=== PATIENT | female | born 1980 | race Caucasian/White ===

== ENCOUNTER → 2020-09-20 17:09 | Outpatient (CLI) | payer BC, SELFPAY ==
--- NOTE | ~2020-09-20 | MM_ITS ---
EXAMINATION: MM screening [facility] w [facility]add HISTORY: Screening mammogram TECHNIQUE: Craniocaudal and mediolateral oblique 3-D tomosynthesis images were obtained and synthetic 2-D images were generated. CAD analysis was submitted and interpreted. COMPARISON: 08/10/2019 diagnostic left digital mammogram and limited left breast ultrasound 08/02/2019, 05/02/2016, 04/30/2015 bilateral digital screening mammogram examinations BREAST PARENCHYMAL COMPOSITION: The breasts are heterogeneously dense, which may obscure small masses . FINDINGS: Scattered benign calcifications are noted bilaterally. There is no evidence of suspicious m ass, calcification, or architectural distortion to suggest malignancy in either breast. There has bee n no suspicious interval change. IMPRESSION: 1. No mammographic evidence of malignancy. 2. Recommend routine screening mammography in one year. BI-RADS Category 2: Benign finding(s). Reviewed, dictated and finalized at location A. OR ENERGY TRADER
== END ==
PROVIDERS: PCP Family Medicine; Visit Provider Nurse Practitioner Obstetrics & Gynecology
DX: Z12.31 Encounter for screening mammogram for malignant neoplasm of breast (principal)
CPT/HCPCS: 77063; 77067

== ENCOUNTER → 2021-09-20 10:50 | Outpatient (CLI) | payer BC, SELFPAY ==
--- NOTE | ~2021-09-20 | MM_ITS ---
EXAMINATION: MM screening [facility] BI w chadd HISTORY: Screening mammogram TECHNIQUE: Craniocaudal and mediolateral oblique 3-D tomosynthesis images were obtained and synthetic 2-D images were generated. CAD analysis was submitted and interpreted. COMPARISON: 09/20/2020, 08/10/2019, 08/02/2019 BREAST PARENCHYMAL COMPOSITION: The breasts are heterogeneously dense, which may obscure small masses . FINDINGS: There is no evidence of suspicious mass, calcification, or architectural distortion to sugg est malignancy in either breast. There has been no suspicious interval change. IMPRESSION: 1. No mammographic evidence of malignancy. 2. Recommend routine screening mammography in one year. BI-RADS Category 1: Negative Reviewed, dictated and finalized at location A. UCTION PLANNING MANAGER
== END ==
PROVIDERS: Visit Provider Nurse Practitioner Obstetrics & Gynecology
DX: Z12.31 Encounter for screening mammogram for malignant neoplasm of breast (principal)
CPT/HCPCS: 77063; 77067

== ENCOUNTER → 2022-10-07 16:22 | Outpatient (CLI) | payer BC, SELFPAY ==
--- NOTE | ~2022-10-07 | MM_ITS ---
EXAMINATION: MM screening [facility] BI w chadd HISTORY: Screening mammogram TECHNIQUE: Craniocaudal and mediolateral oblique 3-D tomosynthesis images were obtained and synthetic 2-D images were generated. CAD analysis was submitted and interpreted. COMPARISON: 09/20/2021, 09/20/2020, 08/10/2019, 08/02/2019 BREAST PARENCHYMAL COMPOSITION: The breasts are heterogeneously dense, which may obscure small masses . FINDINGS: No suspicious mass, calcification, or architectural distortion are identified in either americo ast to suggest malignancy. There has been no suspicious interval change. IMPRESSION: 1. No mammographic evidence of malignancy. 2. Recommend routine screening mammography in one year. BI-RADS Category 1: Negative Reviewed, dictated and finalized at location A. SCHOOL INDUSTRIAL ARTS TEACHER
== END ==
PROVIDERS: PCP Nurse Practitioner Obstetrics & Gynecology; Visit Provider Nurse Practitioner Obstetrics & Gynecology
DX: Z12.31 Encounter for screening mammogram for malignant neoplasm of breast (principal)
CPT/HCPCS: 77063; 77067

== ENCOUNTER → 2023-08-03 07:11 | Outpatient (CLI) | payer BC, SELFPAY ==
--- NOTE | ~2023-08-03 | MM_ITS ---
EXAMINATION: MM screening [facility] BI w chadd HISTORY: Screening mammogram TECHNIQUE: Craniocaudal and mediolateral oblique 3-D tomosynthesis images were obtained and synthetic 2-D images were generated. CAD analysis was submitted and interpreted. COMPARISON: 10/07/2022, 09/20/2021, 09/20/2020 BREAST PARENCHYMAL COMPOSITION: The breasts are heterogeneously dense, which may obscure small masses . FINDINGS: No suspicious mass, calcification, or architectural distortion are identified in either americo ast to suggest malignancy. There has been no suspicious interval change. IMPRESSION: 1. No mammographic evidence of malignancy. 2. Recommend routine screening mammography in one year. BI-RADS Category 1: Negative Reviewed, dictated and finalized at location A.
== END ==
PROVIDERS: PCP Family Medicine; Visit Provider Nurse Practitioner Obstetrics & Gynecology
DX: Z12.31 Encounter for screening mammogram for malignant neoplasm of breast (principal)
CPT/HCPCS: 77063; 77067

== ENCOUNTER 2024-09-14 14:06 | Outpatient (CLI) | payer BC, SELFPAY ==
--- NOTE | ~2024-09-14 | MM_ITS ---
EXAMINATION: MM screening [facility] w [facility]add HISTORY: Screening mammogram TECHNIQUE: Craniocaudal and mediolateral oblique 3-D tomosynthesis images were obtained and synthetic 2-D images were generated. CAD analysis was submitted and interpreted. COMPARISON: 08/03/2023, 10/07/2022, 09/20/2021, 09/20/2020 BREAST PARENCHYMAL COMPOSITION:Dense: The breasts are extremely dense, which lowers the sensitivity o f mammography. FINDINGS: No suspicious mass, calcification, or architectural distortion are identified in either americo ast to suggest malignancy. There has been no suspicious interval change. IMPRESSION: No mammographic evidence of malignancy. Recommend routine screening mammography in one year. BI-RADS Category 1: Negative Reviewed, dictated and finalized at location . SAN PLASTERER
== END 2024-09-14 14:07 | disposition home or self-care (01) ==
LOC: MICIMG 14:07
PROVIDERS: PCP Family Medicine; Visit Provider Obstetrics & Gynecology
DX: Z12.31 Encounter for screening mammogram for malignant neoplasm of breast (principal)
CPT/HCPCS: 77063; 77067

== ENCOUNTER 2025-04-10 01:03 | Day surgery (SDC) | payer BC, SELFPAY ==
[2025-03-29 16:11] VITALS: BMI 30.1
--- OUTSIDE RECORDS SUMMARY | 2025-04-10 01:06 | XMS_ITS | Clinical Summary ---
Author Organization [address] Address [address] [place] [address] Care Team Providers Care Embroidery Operator Name Role Phone No, Physician Primary Care Provider [phone] Allergies Active Allergy Reactions Criticality Noted Date Comments Sulfa Rash Medium 09/27/2023 fever Medications No known medications Active Problems No known active problems Surgical History Surgery Date Site/Laterality Comments OVARIAN CYST REMOVAL Social History Tobacco Use Types Packs/Day Years Used Date Smoking Tobacco: Never Assessed Comments Unknown Sex and Gender Information Value Date Recorded Sex Assigned at Not on file Legal Sex Female 8:06 AM CDT Gender Identity Not on file Sexual Orientation Not on file Obstetrics History Last Filed Vital Signs Vital Sign Reading Time Taken Comments Blood Pressure 134/84 09/27/2023 5:33 PM RIVER GUIDE Pulse 98 09/27/2023 5:33 PM RIVER GUIDE Temperature 36.8 C (98.2 F) 09/27/2023 5:33 PM RIVER GUIDE Respiratory Rate 18 09/27/2023 5:33 PM RIVER GUIDE Oxygen Saturation 97% 09/27/2023 5:33 PM RIVER GUIDE Inhaled Oxygen Concentration - - Weight 79.9 kg (176 lb 3.2 oz) 09/27/2023 5:33 P M RIVER GUIDE Height 160 cm (5' 3) 09/27/2023 5:33 PM RIVER GUIDE Body Mass Index 31.21 09/27/2023 5:33 PM RIVER GUIDE Plan of Treatment Health Maintenance Due Date Last Done Comments Breast Cancer Screening-Mammogram 1978 Cervical Cancer Screening 1978 Colon Cancer Screening-Colonoscopy 1978 Depression Screening 1978 Hepatitis C Screening 1978 DTaP/Tdap/Td Vaccine (1 - Tdap) 1989 Hepatitis B Screening 1996 Regular Well Visit/Exam 18-64 1996 Covid-19 Vaccine ( season) 2024 10/07/2021, 02/07/2021, 01/07/2021 Influenza Vaccine (Season Ended) 2025 08/11/2023, 08/12/2022, 08/11/2021, Additional history exists HPV Vaccines Aged Out No longer eligi ble based on patient's age to complete this topic Pneumococcal vaccine <65 Aged Out No longer eligible based on patient's age to complete this topic Insurance RELEASEIF OOS Care Teams Embroidery Operator Relationship Specialty Start Date End Date No, Physician PCP - General 08/08/21
--- OUTSIDE RECORDS SUMMARY | 2025-04-10 01:06 | XMS_ITS | Data Portability ---
Author Organization [facility] [place] Address [address] [place] [address] Care Team Providers Care Supply Chain Associate Name Role Phone YEN FALCON Primary Care Provider Assessment Encounter Date Assessment Date Assessment LastModified by Organization Details LastModified Time 07/22/2021 07/22/2021 Annual gynecological exam performed. Patient will come back in a year unless there are new symptoms. Not available 07/21/2021 11:48:26 07/24/2022 07/24/2022 Annual gynecological exam performed. Patient will come back in a year unless there are new symptoms. Not available 07/24/2022 09:43:30 07/27/2023 07/27/2023 Annual gynecological exam performed. Patient will come back in a year unless there are new symptoms. [email or web address] Not available 07/27/2023 09:35:49 08/01/2024 08/01/2024 Annual gynecological exam performed. Patient will come back in a year unless there are new symptoms. [email or web address] Not available 08/01/2024 09:33:59 11/03/2024 11/03/2024 Annual gynecological exam performed. Patient will come back in a year unless there are new symptoms. [email or web address] Not available 11/03/2024 14:04:13 Plan of Treatment Reminders Order Date Submit Date Provider Last Modified By Organization Details Last Modified Time Details Appointments [facility] 2024 08:30A Rc COURTNEY MD Not available Not available Not available Lab 25-hydrox yvitamin D2 + 25-hydrox yvitamin D3, QN, serum or plasma 2023 024 [facility] (Lab), [address], [place], [address], 08/02/2024 07:26:57 CMP, serum or plasma 2023 024 [facility] (Lab), [address], [place], [address], 08/02/2024 07:26:56 CBC w/ auto diff 2023 024 [facility] (Lab), [address], [place], [address], 08/02/2024 07:26:55 lipid panel, blood 2023 024 [facility] (Lab), [address], [place], [address], 08/02/2024 07:26:56 HbA1c (hemoglob in A1c), blood 2023 024 [facility] (Lab), [address], [place], [address], 08/02/2024 07:26:56 TSH, serum or plasma 2023 024 [facility] (Lab), [address], [place], [address], 08/02/2024 07:26:57 vitamin D, 25-hydrox y, total, serum 2022 023 [facility] (Lab), [address], [place], [address], 07/28/2023 04:08:54 CMP, serum or plasma 2022 023 [facility] (Lab), [address], [place], [address], 07/28/2023 04:08:52 lipid panel, blood 2022 023 [facility] (Lab), [address], [place], [address], 07/28/2023 04:08:51 CBC w/ auto diff 2022 023 [facility] (Lab), [address], [place], [address], 07/28/2023 04:08:53 HbA1c (hemoglob in A1c), blood 2022 023 [facility] (Lab), [address], [place], [address], 07/28/2023 04:08:54 TSH, serum or plasma 2022 023 [facility] (Lab), [address], [place], [address], 07/28/2023 04:08:53 vitamin D, 25-hydrox y, total, serum 2021 022 [facility] (Lab), [address], [place], [address], 07/25/2022 06:17:41 CMP, serum or plasma 2021 022 [facility] (Lab), [address], [place], [address], 07/25/2022 06:17:40 HbA1c (hemoglob in A1c), blood 2021 022 [facility] (Lab), [address], [place], [address], 07/25/2022 06:17:41 lipid panel, blood 2021 022 [facility] (Lab), [address] [place], [address], 07/25/2022 06:17:40 CBC w/ auto diff 2021 022 [facility] (Lab), [address], [place], [address], 07/25/2022 06:17:39 TSH, serum or plasma 2021 022 [facility] (Lab), [address], [place], [address], 07/25/2022 06:17:39 lipid panel, blood 2020 021 [facility] (Lab), [address], [place], [address], 07/23/2021 05:11:48 CBC w/ auto diff 2020 021 [facility] (Lab), [address], [place], [address], 07/23/2021 05:11:48 CMP, serum or plasma 2020 021 [facility] (Lab), [address], [place], [address], 07/23/2021 05:11:49 TSH, serum or plasma 2020 021 [facility] (Lab), [address], [place], [address], 07/23/2021 05:11:49 HbA1c (hemoglob in A1c), blood 2020 021 [facility] (Lab), [address], [place], [address], 07/23/2021 05:11:50 vitamin D, 25-hydrox y, total, serum 2020 021 [facility] (Lab), [address], [place], [address], 07/23/2021 05:11:50 Referral None recorded. Procedures None recorded. Surgeries None recorded. Imaging MAMMO, screening , digital, bilateral 2023 024 [facility], [address], [place], [address], 09/18/2024 13:44:32 MAMMO, screening , digital, bilateral 2022 023 [facility], [address], [place], [address], 08/03/2023 12:43:39 Medication Orders None recorded. Patient TargetsNo targets recorded. Patient InstructionsNo instructions recorded. Reason for Referral None Reported. Results Created Date Observation Date Name Description Value Unit Range Abnormal Flag Note LastModifiedBy Organization Detail LastModifiedTime 07/22/2007/22/2021 CBC W/DIF F WBC 8.1 10'3/ uL 3.6-10 .2 Not Available [facility] (Lab) [address], [place], [address], 07/23/2021 05:11:47 07/22/20 21 07/22/2021 CBC W/DIF F RBC 3.90 10'6/ uL (based on docume nted legal sex) 4.10-5 .30 low Not Available [facility] (Lab) [address], [place], [address], 07/23/2021 05:11:47 07/22/20 21 07/22/2021 CBC W/DIF F HGB 12.7 g/dL (based on docume nted legal sex) 11.9-1 5.8 Not Available [facility] (Lab) [address], [place], [address], 07/23/2021 05:11:47 07/22/20 21 07/22/2021 CBC W/DIF F HCT 39.4 % (based on docume nted legal sex) 37.4-4 8.3 Not Available [facility] (Lab) [address], [place], [address], 07/23/2021 05:11:47 07/22/20 21 07/22/2021 CBC W/DIF F MCV 102.0 fL 82.0-9 9.0 high Not Available [facility] (Lab) [address], [place], [address], 07/23/2021 05:11:47 07/22/20 21 07/22/2021 CBC W/DIF F MCH 33.0 pg 27.0-3 3.0 Not Available [facility] (Lab) [address], [place], [address], 07/23/2021 05:11:47 07/22/20 21 07/22/2021 CBC W/DIF F MCHC 32.0 g/dL 32.0-3 6.0 Not Available [facility] (Lab) [address], [place], [address], 07/23/2021 05:11:47 07/22/20 21 07/22/2021 CBC W/DIF F RDW 12.0 % 11.0-1 5.0 Not Available [facility] (Lab) [address] [facility], [place], [address], 07/23/2021 05:11:47 07/22/20 21 07/22/2021 CBC W/DIF F plt 253 10'3/ uL 150-45 0 Not Available [facility] (Lab) [address] [facility], [place], [address], 07/23/2021 05:11:47 07/22/20 21 07/22/2021 CBC W/DIF F MPV 11.5 fL 9.8-12 .7 Not Available [facility] (Lab) [address] [facility], [place], [address], 07/23/2021 05:11:47 07/22/20 21 07/22/2021 CBC W/DIF F NRBC's 0.00 % 0 Not Available [facility] (Lab) [address] [facility], [place], [address], 07/23/2021 05:11:47 07/22/20 21 07/22/2021 CBC W/DIF F absolute NRBCs 0.0 10'3/ uL 0 Not Available [facility] (Lab) [address] [facility], [place], [address], 07/23/2021 05:11:47 07/22/20 21 07/22/2021 CBC W/DIF F neutrophils 68.0 % 37.0-7 2.0 Not Available [facility] (Lab) [address] [facility], [place], [address], 07/23/2021 05:11:47 07/22/20 21 07/22/2021 CBC W/DIF F lymphocytes 20.0 % 16.0-4 8.0 Not Available [facility] (Lab) [address] [facility], [place], [address], 07/23/2021 05:11:47 07/22/20 21 07/22/2021 CBC W/DIF F monocytes 8.0 % 4.0-14 .0 Not Available [facility] (Lab) [address] [facility], [place], [address], 07/23/2021 05:11:47 07/22/20 21 07/22/2021 CBC W/DIF F eosinophils 3.0 % 0.0-9. 0 Not Available [facility] (Lab) [address] [facility], [place], [address], 07/23/2021 05:11:47 07/22/20 21 07/22/2021 CBC W/DIF F basophils 1.0 % 0.0-2. 0 Not Available [facility] (Lab) [address] [place], [address], 07/23/2021 05:11:47 07/22/20 21 07/22/2021 CBC W/DIF F immature granulocytes 0.0 % no define d refere nce range Not Available [facility] (Lab) [address] [facility], [place], [address], 07/23/2021 05:11:47 07/22/20 21 07/22/2021 CBC W/DIF F absolute neutrophils 5.6 10'3/ uL 1.1-6. 0 Not Available [facility] (Lab) [address] [place], [address], 07/23/2021 05:11:47 07/22/20 21 07/22/2021 CBC W/DIF F absolute lymphocytes 1.6 10'3/ uL 0.7-3. 4 Not Available [facility] (Lab) [address] [facility], [place], [address], 07/23/2021 05:11:47 07/22/20 21 07/22/2021 CBC W/DIF F absolute monocytes 0.6 10'3/ uL 0.3-1. 0 Not Available [facility] (Lab) [address] [facility], [place], [address], 07/23/2021 05:11:47 07/22/20 21 07/22/2021 CBC W/DIF F absolute eosinophils 0.2 10'3/ uL 0.0-0. 6 Not Available [facility] (Lab) [address] [place], [address], 07/23/2021 05:11:47 07/22/20 21 07/22/2021 CBC W/DIF F absolute basophils 0.1 10'3/ uL 0.0-0. 1 Not Available [facility] (Lab) [address] [place], [address], 07/23/2021 05:11:47 07/22/20 21 07/22/2021 CBC W/DIF F absolute immature granulocytes 0.00 10'3/ uL 0.00-0 .10 2020 2:22 AM: P indic ates parti al resul ts on a panel have been relea sed. Addit ional resul ts will follo w. 9/22/ 2021 2:23 AM: This resul t has been final verif ied. No addit jere or salvador ed resul ts are expec jayesh. Not Available [facility] (Lab) [address] [facility], [place], [address], 07/23/2021 05:11:47 07/22/20 21 07/22/2021 LIPID PANEL ,AMA (LDL- CALC) total cholesterol 144 mg/dL 0-199 Not Available [facility] (Lab) [address] [place], [address], 07/23/2021 05:11:48 07/22/2007/22/2021 LIPID PANEL ,AMA (LDL- CALC) triglyceride s 65 mg/dL 0.00-1 50.00 NCEP Refer ence Value s for Trigl yceri nighat: Hannah l: <150 mg/dL Borde rline High: 150 - 199 mg/dL High: 200 - 499 mg/dL Very High: >/= 500 mg/dL Not Available [facility] (Lab) [address] [facility], [place], [address], 07/23/2021 05:11:48 07/22/20 21 07/22/2021 LIPID PANEL ,AMA (LDL- CALC) HDL cholesterol 63 mg/dL >40 Not Available [facility] (Lab) [address] [place], [address], 07/23/2021 05:11:48 07/22/20 21 07/22/2021 LIPID PANEL ,AMA (LDL- CALC) LDL cholesterol 68 mg/dL 0-99 Cutof f value s recom anup d by the Natio nal Sally stero l Educa tion Progr am: EDWARD ABLE: Sally stero l <200 mg/dL LDL <100 mg/dL BORDE RLINE : Sally stero l 200-2 39 mg/dL LDL 101-1 59 mg/dL HIGHE R RISK: Sally stero l >240 mg/dL LDL >160 mg/dL , HDL <40 mg/dL Not Available [facility] (Lab) [address] [facility], [place], [address], 07/23/2021 05:11:48 07/22/20 21 07/22/2021 LIPID PANEL ,AMA (LDL- CALC) non-HDL cholesterol 81 mg/dL no refere nce range A reaso nable goal for non-H DL sally stero l is one that is 30 mg/dL highe r than the LDL sally stero l goal. Not Available [facility] (Lab) [address] [facility], [place], [address], 07/23/2021 05:11:48 07/22/20 21 07/22/2021 LIPID PANEL ,AMA (LDL- CALC) chol/HDL ratio 2.3 . 0.0-5. 0 Not Available [facility] (Lab) [address] [facility], [place], [address], 07/23/2021 05:11:48 07/22/20 21 07/22/2021 CMP(C OMPRE HENSI VE METAB OLIC PANEL ) sodium 136 mmol/ L 136-14 5 Not Available [facility] (Lab) [address] [facility], [place], [address], 07/23/2021 05:11:49 07/22/20 21 07/22/2021 CMP(C OMPRE HENSI VE METAB OLIC PANEL ) potassium 4.3 mmol/ L 3.5-5. 1 Not Available [facility] (Lab) [address] [facility], [place], [address], 07/23/2021 05:11:49 07/22/20 21 07/22/2021 CMP(C OMPRE HENSI VE METAB OLIC PANEL ) chloride 105 mmol/ L 98-107 Not Available [facility] (Lab) [address] [facility], [place], [address], 07/23/2021 05:11:49 07/22/20 21 07/22/2021 CMP(C OMPRE HENSI VE METAB OLIC PANEL ) carbon dioxide 26 mmol/ L 21-31 Not Available [facility] (Lab) [address] [facility], [place], [address], 07/23/2021 05:11:49 07/22/20 21 07/22/2021 CMP(C OMPRE HENSI VE METAB OLIC PANEL ) anion gap 5 mmol/ L 4-13 Not Available [facility] (Lab) [address] [facility], [place], [address], 07/23/2021 05:11:49 07/22/20 21 07/22/2021 CMP(C OMPRE HENSI VE METAB OLIC PANEL ) blood urea nitrogen 12 mg/dL 7-25 Not Available [facility] (Lab) [address] [facility], [place], [address], 07/23/2021 05:11:49 07/22/20 21 07/22/2021 CMP(C OMPRE HENSI VE METAB OLIC PANEL ) creatinine 0.82 mg/dL 0.60-1 .30 Not Available [facility] (Lab) [address] [facility], [place], [address], 07/23/2021 05:11:49 07/22/20 21 07/22/2021 CMP(C OMPRE HENSI VE METAB OLIC PANEL ) GFR () 93 mL/mi n/1.7 3_m2 60-300 Not Available [facility] (Lab) [address] [facility], [place], [address], 07/23/2021 05:11:49 07/22/20 21 07/22/2021 CMP(C OMPRE HENSI VE METAB OLIC PANEL ) GFR (others) 76 mL/mi n/1.7 3_m2 60-300 Not Available [facility] (Lab) [address] [facility], [place], [address], 07/23/2021 05:11:49 07/22/20 21 07/22/2021 CMP(C OMPRE HENSI VE METAB OLIC PANEL ) calcium 9.4 mg/dL 8.6-10 .2 Not Available [facility] (Lab) [address] [facility], [place], [address], 07/23/2021 05:11:49 07/22/20 21 07/22/2021 CMP(C OMPRE HENSI VE METAB OLIC PANEL ) glucose 82 mg/dL 70-100 Not Available [facility] (Lab) [address] [facility], [place], [address], 07/23/2021 05:11:49 07/22/20 21 07/22/2021 CMP(C OMPRE HENSI VE METAB OLIC PANEL ) protein, total 6.8 g/dL 6.4-8. 3 Not Available [facility] (Lab) [address] [facility], [place], [address], 07/23/2021 05:11:49 07/22/20 21 07/22/2021 CMP(C OMPRE HENSI VE METAB OLIC PANEL ) albumin 4.0 g/dL 3.5-5. 0 Not Available [facility] (Lab) [address] [facility], [place], [address], 07/23/2021 05:11:49 07/22/20 21 07/22/2021 CMP(C OMPRE HENSI VE METAB OLIC PANEL ) ALT 12 units /L 9-43 Not Available [facility] (Lab) [address] [facility], [place], [address], 07/23/2021 05:11:49 07/22/20 21 07/22/2021 CMP(C OMPRE HENSI VE METAB OLIC PANEL ) alkaline phosphatase 43 units /L 34-104 Not Available [facility] (Lab) [address] [facility], [place], [address], 07/23/2021 05:11:49 07/22/20 21 07/22/2021 CMP(C OMPRE HENSI VE METAB OLIC PANEL ) AST 13 units /L 13-39 Not Available [facility] (Lab) [address] [place], [address], 07/23/2021 05:11:49 07/22/20 21 07/22/2021 CMP(C OMPRE HENSI VE METAB OLIC PANEL ) bilirubin, total 0.5 mg/dL 0.2-1. 2 GFR(Nelda friviktor n Ameri can) is repor jayesh as 21% great er than GFR(O ther) . The use of race in kidne y funct ion estim ating equat ions is no longe r recom anup d and may resul t in overe stima tion. In the near futur e an appro ach that disre octavio race will be imple mente d. Not Available [facility] (Lab) [address] [facility], [place], [address], 07/23/2021 05:11:49 07/22/2007/22/2021 TSH, REFLE X FREE T4 TSH 1.88 uIU/m L 0.30-5 .33 Not Available [facility] (Lab) [address] [facility], [place], [address], 07/23/2021 05:11:49 07/22/2007/22/2021 VITAM IN D, 25-OH (TOTA L D2/D3 ) vitamin D, 25-hydroxy, total 36.1 NG/mL 30-80 NOTE: Defic iency : <20 ng/mL Insuf ficie ncy: 20-29 ng/mL Optim um Level : 30-80 ng/mL Possi ble Toxic ity: >80 ng/mL Most patie nts with toxic ity have level s >150 ng/mL . Not Available [facility] (Lab) [address] [facility], [place], [address], 07/23/2021 05:11:49 07/22/2007/22/2021 HEMOG LOBIN A1C hemoglobin A1C 5.5 % 0-5.6 The Ameri can Diabe saumya Ass[employer] iatio n recom mends that a prima ry goal of thera py cara d be a HBA1C of < 7% and that physi cians shoul d reeva luate the treat ment regim en in patie nts with HBA1C value s consi stent ly > 8%. 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 FINAL DIAGN OSIS: Negat verna for Intra epith elial Chris bautista or Osvaldo gutierrez (NIL) Elect fidel myles lars d by Trang Harper on 2020 at 7:01 PM ----- ----- ----- ----- ----- ----- ----- ----- ----- ----- ----- ----- ----- ----- ----- ----- ----- ---- HPV RESUL TS: HPV mRNA E6/E7 : No HPV mRNA Detec jayesh NOTE: This high risk HPV mRNA assay detec ts fourt een high- risk HPV types (16, 18, 31, 33, 35, 39, 45, 51, 52, 56, 58, 59, 66, 68) witho ut diffe renti ation . COMME NT: Note: This speci men was revie wed by a Cytot echno logis t and/o r Patho logis t (as indic ated in this repor t) after evalu ation using the Thinp rep Imagi ng Syste m. CLINI EZRA INFOR MATIO N: Menst rual Statu s: LMP (if appli cable ): 2020 Clini ezra Histo ry/Pr eviou s Pap: Type of Neopl salvador (if appli cable ): Signi fican t Clini ezra Findi ngs: Other Histo ry: Hormo alexey (if appli cable ): PAP EDUCA TANYA L NOTE: The Pap Test is a scree gabi test with an inher ent false negat verna rate. Liqui d-bas e sampl ing may decre ase, but will not elimi amado, false negat verna resul ts. A negat verna resul t does not precl ude the prese nce and/o r devel opmen t of disea se, since the prese nce of abnor mal cells in the sampl e depen ds on the locat ion of the lesio n and sampl ing techn ique. Zackery nued regul ar scree gabi is the best metho d of cance r preve ntion . If repor jayesh cytol ogic findi ng do not corre late with physi ezra and/o r histo rical findi ngs, furth er inves tigat ion is recom anup d, as clini chao warra nted. Not Available [facility] (Lab) [address], [place], [address], 07/25/2021 20:03:43 07/24/2007/24/2022 CBC W/DIF F WBC 8.1 10'3/ uL 3.6-10 .2 Not Available [facility] [address] [facility], [place], [address], 07/25/2022 06:17:39 07/24/20 22 07/24/2022 CBC W/DIF F RBC 4.17 10'6/ uL (based on docume nted legal sex) 4.10-5 .30 Not Available [facility] [place], [address], 07/25/2022 06:17:39 07/24/20 22 07/24/2022 CBC W/DIF F HGB 13.3 g/dL (based on docume nted legal sex) 11.9-1 5.8 Not Available [facility], [place], [address], 07/25/2022 06:17:39 07/24/20 22 07/24/2022 CBC W/DIF F HCT 42.0 % (based on docume nted legal sex) 37.4-4 8.3 Not Available [facility] [place], [address], 07/25/2022 06:17:39 07/24/20 22 07/24/2022 CBC W/DIF F MCV 100.7 fL 82.0-9 9.0 high Not Available [facility] [place], [address], 07/25/2022 06:17:39 07/24/20 22 07/24/2022 CBC W/DIF F MCH 31.9 pg 27.0-3 3.0 Not Available [facility] [place], [address], 07/25/2022 06:17:39 07/24/20 22 07/24/2022 CBC W/DIF F MCHC 31.7 g/dL 32.0-3 6.0 low Not Available [facility] [place], [address], 07/25/2022 06:17:39 07/24/20 22 07/24/2022 CBC W/DIF F RDW 12.0 % 11.0-1 5.0 Not Available [facility], [address], 07/25/2022 06:17:39 07/24/20 22 07/24/2022 CBC W/DIF F plt 288 10'3/ uL 150-45 0 Not Available [facility] [place], [address], 07/25/2022 06:17:39 07/24/20 22 07/24/2022 CBC W/DIF F MPV 11.3 fL 9.8-12 .7 Not Available [facility] [place], [address], 07/25/2022 06:17:39 07/24/20 22 07/24/2022 CBC W/DIF F NRBC's 0.0 % 0 Not Available [facility] [address] [place] [address], [address], 07/25/2022 06:17:39 07/24/20 22 07/24/2022 CBC W/DIF F absolute NRBCs 0.0 10'3/ uL 0 Not Available [facility] [place], [address], 07/25/2022 06:17:39 07/24/20 22 07/24/2022 CBC W/DIF F neutrophils 67.1 % 37.0-7 2.0 Not Available [facility] [place], [address], 07/25/2022 06:17:39 07/24/20 22 07/24/2022 CBC W/DIF F lymphocytes 20.0 % 16.0-4 8.0 Not Available [facility] [place], [address], 07/25/2022 06:17:39 07/24/20 22 07/24/2022 CBC W/DIF F monocytes 8.3 % 4.0-14 .0 Not Available [facility] [address] [place] [address], [address], 07/25/2022 06:17:39 07/24/20 22 07/24/2022 CBC W/DIF F eosinophils 3.3 % 0.0-9. 0 Not Available [facility] [address] [place] [address], [address], 07/25/2022 06:17:39 07/24/20 22 07/24/2022 CBC W/DIF F basophils 1.1 % 0.0-2. 0 Not Available [facility] [address] [place] [address], [address], 07/25/2022 06:17:39 07/24/20 22 07/24/2022 CBC W/DIF F immature granulocytes 0.2 % no define d refere nce range Not Available [facility] [address] [place] [address], [address], 07/25/2022 06:17:39 07/24/20 22 07/24/2022 CBC W/DIF F absolute neutrophils 5.4 10'3/ uL 1.1-6. 0 Not Available [facility] [address] [place] [address], [address], 07/25/2022 06:17:39 07/24/20 22 07/24/2022 CBC W/DIF F absolute lymphocytes 1.6 10'3/ uL 0.7-3. 4 Not Available [facility] [address] [place], [place] [address], [phone], 07/25/2022 06:17:39 07/24/20 22 07/24/2022 CBC W/DIF F absolute monocytes 0.7 10'3/ uL 0.3-1. 0 Not Available [facility] [address] [place], [place] [address], [phone], 07/25/2022 06:17:39 07/24/20 22 07/24/2022 CBC W/DIF F absolute eosinophils 0.3 10'3/ uL 0.0-0. 6 Not Available [facility] Infect[facility] Disease [address] [place] [address], [phone], 07/25/2022 06:17:39 07/24/20 22 07/24/2022 CBC W/DIF F absolute basophils 0.1 10'3/ uL 0.0-0. 1 Not Available [facility] Disease [address] [place] [address], [phone], 07/25/2022 06:17:39 07/24/20 22 07/24/2022 CBC W/DIF F absolute immature granulocytes 0.0 10'3/ uL 0.00-0 .10 2021 3:41 AM: P indic ates parti al resul ts on a panel have been relea sed. Addit ional resul ts will follo w. 2021 3:41 AM: This resul t has been final verif ied. No addit ional or salvador ed resul ts are expec jayesh. Not Available [facility] [address] [place] [address], [phone], 07/25/2022 06:17:39 07/24/20 22 07/24/2022 TSH, REFLE X FREE T4 TSH 1.89 uIU/m L 0.30-5 .33 Not Available [facility] Infect[facility] Disease [address] [place] [address], [phone], 07/25/2022 06:17:39 07/24/20 22 07/24/2022 LIPID PANEL ,AMA (LDL- CALC) total cholesterol 180 mg/dL 0-199 Not Available [facility] [address] [place] [address], [address], 07/25/2022 06:17:40 07/24/2007/24/2022 LIPID PANEL ,AMA (LDL- CALC) triglyceride s 74 mg/dL 0.00-1 50.00 NCEP Refer ence Value s for Trigl yceri nighat: Hannah l: <150 mg/dL Borde rline High: 150 - 199 mg/dL High: 200 - 499 mg/dL Very High: >/= 500 mg/dL Not Available [facility] Infectious [address], [address], 07/25/2022 06:17:40 07/24/2007/24/2022 LIPID PANEL ,AMA (LDL- CALC) HDL cholesterol 70 mg/dL >40 Not Available [facility] [address], [address], 07/25/2022 06:17:40 07/24/2007/24/2022 LIPID PANEL ,AMA (LDL- CALC) LDL cholesterol 95 mg/dL 0-99 Cutof f value s recom anup d by the Jennifer ambriz Sally stero l Educa tion Progr am: EDWARD ABLE: Sally stero l <200 mg/dL LDL <100 mg/dL BORDE RLINE : Sally stero l 200-2 39 mg/dL LDL 101-1 59 mg/dL HIGHE R RISK: Sally stero l >240 mg/dL LDL >160 mg/dL , HDL <40 mg/dL Not Available [facility] Infectious Disease [address] [place] [address], [address], 07/25/2022 06:17:40 07/24/2007/24/2022 LIPID PANEL ,AMA (LDL- CALC) non-HDL cholesterol 110 mg/dL no refere nce range A reaso nable goal for non-H DL sally stero l is one that is 30 mg/dL highe r than the LDL sally stero l goal. Not Available [facility] Infectious [facility] [place], [address], 07/25/2022 06:17:40 07/24/20 22 07/24/2022 LIPID PANEL ,AMA (LDL- CALC) chol/HDL ratio 2.6 . 0.0-5. 0 Not Available [address] [place], [address], 07/25/2022 06:17:40 07/24/20 22 07/24/2022 CMP(C OMPRE HENSI VE METAB OLIC PANEL ) sodium 136 mmol/ L 133-14 6 Not Available [facility] Disease [address] [place], [place] [address], [address], 07/25/2022 06:17:40 07/24/20 22 07/24/2022 CMP(C OMPRE HENSI VE METAB OLIC PANEL ) potassium 4.4 mmol/ L 3.5-5. 1 Not Available [facility] Disease [address] [place], [place] [address], [address], 07/25/2022 06:17:40 07/24/20 22 07/24/2022 CMP(C OMPRE HENSI VE METAB OLIC PANEL ) chloride 101 mmol/ L 98-107 Not Available [facility] Infectious Disease [address] [place], [place] [address], [address], 07/25/2022 06:17:40 07/24/20 22 07/24/2022 CMP(C OMPRE HENSI VE METAB OLIC PANEL ) carbon dioxide 28 mmol/ L 21-31 Not Available [facility] Infectious Disease [address] [place], [place] [address], [address], 07/25/2022 06:17:40 07/24/20 22 07/24/2022 CMP(C OMPRE HENSI VE METAB OLIC PANEL ) anion gap 7 mmol/ L 4-13 Not Available [address] [place], [address], 07/25/2022 06:17:40 07/24/20 22 07/24/2022 CMP(C OMPRE HENSI VE METAB OLIC PANEL ) blood urea nitrogen 10 mg/dL 7-25 Not Available [address] [place], [address], 07/25/2022 06:17:40 07/24/2007/24/2022 CMP(C OMPRE HENSI VE METAB OLIC PANEL ) creatinine 0.88 mg/dL 0.60-1 .30 Not Available [address] [place], [address], 07/25/2022 06:17:40 07/24/20 22 07/24/2022 CMP(C OMPRE HENSI VE METAB OLIC PANEL ) egfrcr (CKD-epi 2020) 84 mL/mi n/1.7 3_m2 >=60 Not Available [facility] Infectious Disease [address] [place], [place] [address], [address], 07/25/2022 06:17:40 07/24/20 22 07/24/2022 CMP(C OMPRE HENSI VE METAB OLIC PANEL ) calcium 9.5 mg/dL 8.3-10 .5 Not Available [address] [place], [address], 07/25/2022 06:17:40 07/24/20 22 07/24/2022 CMP(C OMPRE HENSI VE METAB OLIC PANEL ) glucose 81 mg/dL 70-100 Not Available [facility] Infectious Disease [address] [place], [place] [address], [address], 07/25/2022 06:17:40 07/24/20 22 07/24/2022 CMP(C OMPRE HENSI VE METAB OLIC PANEL ) protein, total 7.4 g/dL 6.4-8. 3 Not Available [facility] Infectious Disease [address] [place] [address], [address], 07/25/2022 06:17:40 07/24/20 22 07/24/2022 CMP(C OMPRE HENSI VE METAB OLIC PANEL ) albumin 4.5 g/dL 3.5-5. 0 Not Available [facility] Infectious Disease [address] [place] [address], [address], 07/25/2022 06:17:40 07/24/20 22 07/24/2022 CMP(C OMPRE HENSI VE METAB OLIC PANEL ) ALT 10 units /L 9-43 Not Available [facility] Infectious Disease [address] [place] [address], [address], 07/25/2022 06:17:40 07/24/20 22 07/24/2022 CMP(C OMPRE HENSI VE METAB OLIC PANEL ) alkaline phosphatase 58 units /L 34-104 Not Available [facility] Infectious Disease [address] [place] [address], [address], 07/25/2022 06:17:40 07/24/20 22 07/24/2022 CMP(C OMPRE HENSI VE METAB OLIC PANEL ) AST 15 units /L 13-39 Not Available [facility] Infectious Disease [address] [place] [address], [address], 07/25/2022 06:17:40 07/24/20 22 07/24/2022 CMP(C OMPRE HENSI VE METAB OLIC PANEL ) bilirubin, total 0.6 mg/dL 0.2-1. 2 Not Available [facility] Infectious Disease [address] [place], [address], 07/25/2022 06:17:40 07/24/20 22 07/24/2022 VITAM IN D, 25-OH (TOTA L D2/D3 ) vitamin D, 25-hydroxy, total 30.7 NG/mL 30.0-1 00.0 Sugge stive of Defic iency : <20 ng/mL Sugge stive of Insuf ficie ncy: 20-29 ng/mL Sugge stive of Suffi cienc y: 30-10 0 ng/mL Sugge stive of Toxic ity: >150 ng/mL Not Available [facility] [address] [place], [address], 07/25/2022 06:17:41 07/24/2007/24/2022 HEMOG LOBIN A1C hemoglobin A1C 5.5 % 0-5.6 The Ameri can Diabe saumya Assoc iatio n recom mends that a prima ry goal of thera py shoul d be a HBA1C of < 7% and that physi cians shoul d reeva luate the treat ment regim en in patie nts with HBA1C value s consi stent ly > 8%. <5.7% Hannah l 5.7 - 6.4% Incre ased risk for diabe saumya >=6.5 % Diagn ostic of diabe saumya <7.0% Goal of thera py >8.0% Actio n sugge sted Not Available [facility] [address] [place], [address], 07/25/2022 06:17:41 07/24/2007/24/2022 IMAGE GUIDE D PAP AND HPV REGAR DLESS image guided Pap, HPV regardless of Pap result SEE RESULT S BELOW CASE REPOR T: Cytol ogy Gynec ologi ezra Repor t Case: [id number] Autho joe harris Provi nataly: Jair Gandhi Colle cted: 07/24 1603 EXCAVATING CONTRACTOR Order ing Locat ion: [place] Patho gabino Abbasi samuel: 07/25 0159 First Scree n: Trang Harper Rescr een: Deepika Batres, CT Speci men: Scree gabi Pap - Image d, Cervi x STATE MENT OF ADEQU ACY: Satis facto ry for evalu ation Trans forma tion zone compo nent absen t The absen ce of an endoc ervic al compo nent was confi rmed by an addit ional alexus ner. FINAL DIAGN OSIS: Negat verna for Intra epith elial Lesio n or Osvaldo gutierrez (NIL) . Elect fidel myles lars d by Deepika Batres, CT on 2021 at 11:12 AM ----- ----- ----- ----- ----- ----- ----- ----- ----- ----- ----- ----- ----- ----- ----- ----- ----- ---- HPV RESUL TS: HPV mRNA E6/E7 : No HPV mRNA Detec jayesh NOTE: This high risk HPV mRNA assay detec ts fourt een high- risk HPV types (16, 18, 31, 33, 35, 39, 45, 51, 52, 56, 58, 59, 66, 68) witho ut diffe renti ation . COMME NT: Note: This speci men was revie wed by a Cytot echno logis t and/o r Patho logis t (as indic ated in this repor t) after evalu ation using the Thinp rep Imagi ng Syste m. CLINI EZRA INFOR MATIO N: Menst rual Statu s: LMP (if appli cable ): Clini ezra Histo ry/Pr eviou s Pap: Type of Neopl salvador (if appli cable ): Signi fican t Clini ezra Findi ngs: Other Histo ry: Hormo alexey (if appli cable ): PAP EDUCA TANYA L NOTE: The Pap Test is a scree gabi test with an inher ent false negat verna rate. Liqui d-bas ed sampl ing may decre ase, but will not elimi amado, false negat verna resul ts. A negat verna resul t does not precl ude the prese nce and/o r devel opmen t of disea se, since the prese nce of abnor mal cells in the sampl e depen ds on the locat ion of the lesio n and sampl ing techn ique. Zackery nued regul ar scree gabi is the best metho d of cance r preve ntion . If repor jayesh cytol ogic findi ng do not corre late with physi ezra and/o r histo rical findi ngs, furth er inves tigat ion is recom anup d, as clini chao vargas nted. Not Available [facility] Infectious Disease [address] [place], [address], 07/31/2022 12:14:36 07/27/2007/27/2023 LIPID PANEL ,AMA (LDL- CALC) total cholesterol 174 mg/dL 0-199 Not Available [facility] (Lab) [address] [place], [address], 07/28/2023 04:08:51 07/27/2007/27/2023 LIPID PANEL ,AMA (LDL- CALC) triglyceride s 106 mg/dL 0.00-1 50.00 NCEP Refer ence Value s for Trigl yceri nighat: Hannah l: <150 mg/dL Borde rline High: 150 - 199 mg/dL High: 200 - 499 mg/dL Very High: >/= 500 mg/dL Not Available [facility] (Lab) [address] [place], [address], 07/28/2023 04:08:51 07/27/2007/27/2023 LIPID PANEL ,AMA (LDL- CALC) HDL cholesterol 58 mg/dL >40 Not Available [facility] (Lab) [address] [place], [address], 07/28/2023 04:08:51 07/27/2007/27/2023 LIPID PANEL ,AMA (LDL- CALC) LDL cholesterol 96 mg/dL 0-99 Cutof f value s recom anup d by the Natio nal Sally stero l Educa tion Progr am: EDWARD ABLE: Sally stero l <200 mg/dL LDL <100 mg/dL BORDE RLINE : Sally stero l 200-2 39 mg/dL LDL 101-1 59 mg/dL HIGHE R RISK: Sally stero l >240 mg/dL LDL >160 mg/dL , HDL <40 mg/dL Not Available [facility] (Lab) [address] [facility], [place], [address], 07/28/2023 04:08:51 07/27/2007/27/2023 LIPID PANEL ,AMA (LDL- CALC) non-HDL cholesterol 116 mg/dL no refere nce range A reaso nable goal for non-H DL sally stero l is one that is 30 mg/dL highe r than the LDL sally stero l goal. Not Available [facility] (Lab) [address] [facility], [place], [address], 07/28/2023 04:08:51 07/27/2007/27/2023 LIPID PANEL ,AMA (LDL- CALC) chol/HDL ratio 3.0 . 0.0-5. 0 On February 23, 2023, [facility] labor atori lam salvador ed the equat ion for calcu latin g estim ated low-d ensit y lipop rotei n-cho leste rol (LDL- C) from the Fried sara equat ion to the Dominique n/Hop kins equat ion. This new equat ion is only valid for lipid panel s with trigl yceri nighat < 400 mg/dL . Studi es jarad demon strat ed that this new equat ion will impro ve the accur acy of LDL-C , espec ially in scena cha when LDL-C dariusz ntrat ions are relat ively low (< 100 mg/dL ), trigl yceri nighat are eleva jayesh, or patie nt is non-f astin g. Refer ences : - Dominique bautista, Alf Rivera, Cecilio Samaniego , Melissa maki, Broderick Cabello, Broderick jeffries, Jackson dawn , and Jared Batres . 2013. Comp ariso n of a Novel Metho d vs the Fried sara Equat ion for Estim ating Low-D ensit y Lipop rotei n Sally stero l Level s from the Stand lela Lipid Profdominic le. PAUL: The Journ al of the Ameri can Medic al Assoc iatio n 310 (19): 2060- . - Parker carrillo V, Aleja J, Elke carrillo A, Ryan M, Florentino olivarez R, Isra carrillo E, Thien dawn RS, Medardo SR, Dominique bautista SS. Fast ing Versu s Nonfa sting and Low-D ensit y Lipop rotei n Sally stero l Accur acy. Circu latio n. 2017Nov 02;137 (1):1 0-19. Not Available [facility] (Lab) [address] [facility], [place], [address], 07/28/2023 04:08:51 07/27/20 23 07/27/2023 CMP(C OMPRE HENSI VE METAB OLIC PANEL ) sodium 139 mmol/ L 133-14 6 Not Available [facility] (Lab) [address] [place], [address], 07/28/2023 04:08:52 07/27/20 23 07/27/2023 CMP(C OMPRE HENSI VE METAB OLIC PANEL ) potassium 4.2 mmol/ L 3.5-5. 1 Not Available [facility] (Lab) [address] [place], [address], 07/28/2023 04:08:52 07/27/20 23 07/27/2023 CMP(C OMPRE HENSI VE METAB OLIC PANEL ) chloride 103 mmol/ L 98-107 Not Available [facility] (Lab) [address] [place], [address], 07/28/2023 04:08:52 07/27/20 23 07/27/2023 CMP(C OMPRE HENSI VE METAB OLIC PANEL ) carbon dioxide 26 mmol/ L 21-31 Not Available [facility] (Lab) [address], [place], [address], 07/28/2023 04:08:52 07/27/20 23 07/27/2023 CMP(C OMPRE HENSI VE METAB OLIC PANEL ) anion gap 10 mmol/ L 4-13 Not Available [facility] (Lab) [address], [place], [address], 07/28/2023 04:08:52 07/27/20 23 07/27/2023 CMP(C OMPRE HENSI VE METAB OLIC PANEL ) blood urea nitrogen 9 mg/dL 7-25 Not Available [facility] (Lab) [address], [place], [address], 07/28/2023 04:08:52 07/27/20 23 07/27/2023 CMP(C OMPRE HENSI VE METAB OLIC PANEL ) creatinine 0.88 mg/dL 0.60-1 .30 Not Available [facility] (Lab) [address], [place], [address], 07/28/2023 04:08:52 07/27/20 23 07/27/2023 CMP(C OMPRE HENSI VE METAB OLIC PANEL ) egfrcr (CKD-epi 2020) 83 mL/mi n/1.7 3_m2 >=60 Not Available [facility] (Lab) [address], [place], [address], 07/28/2023 04:08:52 07/27/20 23 07/27/2023 CMP(C OMPRE HENSI VE METAB OLIC PANEL ) calcium 9.1 mg/dL 8.3-10 .5 Not Available [facility] (Lab) [address], [place], [address], 07/28/2023 04:08:52 07/27/20 23 07/27/2023 CMP(C OMPRE HENSI VE METAB OLIC PANEL ) glucose 86 mg/dL 70-100 Not Available [facility] (Lab) [address] [facility], [place], [address], 07/28/2023 04:08:52 07/27/20 23 07/27/2023 CMP(C OMPRE HENSI VE METAB OLIC PANEL ) protein, total 7.1 g/dL 6.4-8. 3 Not Available [facility] (Lab) [address] [facility], [place], [address], 07/28/2023 04:08:52 07/27/20 23 07/27/2023 CMP(C OMPRE HENSI VE METAB OLIC PANEL ) albumin 4.1 g/dL 3.5-5. 0 Not Available [facility] (Lab) [address] [facility], [place], [address], 07/28/2023 04:08:52 07/27/20 23 07/27/2023 CMP(C OMPRE HENSI VE METAB OLIC PANEL ) ALT 6 units /L 9-43 low Not Available [facility] (Lab) [address] [facility], [place], [address], 07/28/2023 04:08:52 07/27/20 23 07/27/2023 CMP(C OMPRE HENSI VE METAB OLIC PANEL ) alkaline phosphatase 52 units /L 34-104 Not Available [facility] (Lab) [address] [facility], [place], [address], 07/28/2023 04:08:52 07/27/20 23 07/27/2023 CMP(C OMPRE HENSI VE METAB OLIC PANEL ) AST 12 units /L 13-39 low Not Available [facility] (Lab) [address] [facility], [place], [address], 07/28/2023 04:08:52 07/27/20 23 07/27/2023 CMP(C OMPRE HENSI VE METAB OLIC PANEL ) bilirubin, total 0.4 mg/dL 0.2-1. 2 Not Available [facility] (Lab) [address], [place], [address], 07/28/2023 04:08:52 07/27/20 23 07/27/2023 TSH, REFLE X FREE T4 TSH 1.84 uIU/m L 0.30-5 .33 Not Available [facility] (Lab) [address], [place], [address], 07/28/2023 04:08:53 07/27/20 23 07/27/2023 CBC W/DIF F WBC 7.4 10'3/ uL 3.6-10 .2 Not Available [facility] (Lab) [address], [place], [address], 07/28/2023 04:08:53 07/27/20 23 07/27/2023 CBC W/DIF F RBC 4.00 10'6/ uL (based on docume nted legal sex) 4.10-5 .30 low Not Available [facility] (Lab) [address], [place], [address], 07/28/2023 04:08:53 07/27/20 23 07/27/2023 CBC W/DIF F HGB 12.8 g/dL (based on docume nted legal sex) 11.9-1 5.8 Not Available [facility] (Lab) [address], [place], [address], 07/28/2023 04:08:53 07/27/20 23 07/27/2023 CBC W/DIF F HCT 40.2 % (based on docume nted legal sex) 37.4-4 8.3 Not Available [facility] (Lab) [address], [place], [address], 07/28/2023 04:08:53 07/27/20 23 07/27/2023 CBC W/DIF F MCV 100.5 fL 82.0-9 9.0 high Not Available [facility] (Lab) [address] [facility], [place], [address], 07/28/2023 04:08:53 07/27/20 23 07/27/2023 CBC W/DIF F MCH 32.0 pg 27.0-3 3.0 Not Available [facility] (Lab) [address], [place], [address], 07/28/2023 04:08:53 07/27/20 23 07/27/2023 CBC W/DIF F MCHC 31.8 g/dL 32.0-3 6.0 low Not Available [facility] (Lab) [address], [place], [address], 07/28/2023 04:08:53 07/27/20 23 07/27/2023 CBC W/DIF F RDW 12.4 % 11.0-1 5.0 Not Available [facility] (Lab) [address] [facility], [place], [address], 07/28/2023 04:08:53 07/27/20 23 07/27/2023 CBC W/DIF F plt 276 10'3/ uL 150-45 0 Not Available [facility] (Lab) [address], [place], [address], 07/28/2023 04:08:53 07/27/20 23 07/27/2023 CBC W/DIF F MPV 11.3 fL 9.8-12 .7 Not Available [facility] (Lab) [address] [facility], [place], [address], 07/28/2023 04:08:53 07/27/20 23 07/27/2023 CBC W/DIF F NRBC's 0.0 % 0 Not Available [facility] (Lab) [address], [place], [address], 07/28/2023 04:08:53 07/27/20 23 07/27/2023 CBC W/DIF F absolute NRBCs 0.0 10'3/ uL 0 Not Available [facility] (Lab) [address] [facility], [place], [address], 07/28/2023 04:08:53 07/27/20 23 07/27/2023 CBC W/DIF F neutrophils 64.1 % 37.0-7 2.0 Not Available [facility] (Lab) [address] [facility], [place], [address], 07/28/2023 04:08:53 07/27/20 23 07/27/2023 CBC W/DIF F lymphocytes 23.6 % 16.0-4 8.0 Not Available [facility] (Lab) [address] [facility], [place], [address], 07/28/2023 04:08:53 07/27/20 23 07/27/2023 CBC W/DIF F monocytes 8.2 % 4.0-14 .0 Not Available [facility] (Lab) [address] [facility], [place], [address], 07/28/2023 04:08:53 07/27/20 23 07/27/2023 CBC W/DIF F eosinophils 2.8 % 0.0-9. 0 Not Available [facility] (Lab) [address] [facility], [place], [address], 07/28/2023 04:08:53 07/27/20 23 07/27/2023 CBC W/DIF F basophils 0.9 % 0.0-2. 0 Not Available [facility] (Lab) [address] [facility], [place], [address], 07/28/2023 04:08:53 07/27/20 23 07/27/2023 CBC W/DIF F immature granulocytes 0.4 % no define d refere nce range Not Available [facility] (Lab) [address] [facility], [place], [address], 07/28/2023 04:08:53 07/27/20 23 07/27/2023 CBC W/DIF F absolute neutrophils 4.8 10'3/ uL 1.1-6. 0 Not Available [facility] (Lab) [address] [facility], [place], [address], 07/28/2023 04:08:53 07/27/20 23 07/27/2023 CBC W/DIF F absolute lymphocytes 1.8 10'3/ uL 0.7-3. 4 Not Available [facility] (Lab) [address] [facility], [place], [address], 07/28/2023 04:08:53 07/27/20 23 07/27/2023 CBC W/DIF F absolute monocytes 0.6 10'3/ uL 0.3-1. 0 Not Available [facility] (Lab) [address] [facility], [place], [address], 07/28/2023 04:08:53 07/27/20 23 07/27/2023 CBC W/DIF F absolute eosinophils 0.2 10'3/ uL 0.0-0. 6 Not Available [facility] (Lab) [address] [facility], [place], [address], 07/28/2023 04:08:53 07/27/20 23 07/27/2023 CBC W/DIF F absolute basophils 0.1 10'3/ uL 0.0-0. 1 Not Available [facility] (Lab) [address] [facility], [place], [address], 07/28/2023 04:08:53 07/27/20 23 07/27/2023 CBC W/DIF F absolute immature granulocytes 0.0 10'3/ uL 0.00-0 .10 2022 2:29 AM: P indic ates parti al resul ts on a panel have been relea sed. Addit ional resul ts will follo w. 2022 2:29 AM: This resul t has been final verif ied. No addit ional or salvador ed resul ts are expec jayesh. Not Available [facility] (Lab) [address] [facility], [place], [address], 07/28/2023 04:08:53 07/27/20 23 07/27/2023 VITAM IN D, 25-OH (TOTA L D2/D3 ) vitamin D, 25-hydroxy, total 31.1 NG/mL 30.0-1 00.0 Sugge stive of Defic iency : <20 ng/mL Sugge stive of Insuf ficie ncy: 20-29 ng/mL Sugge stive of Suffi cienc y: 30-10 0 ng/mL Sugge stive of Toxic ity: >150 ng/mL Not Available [facility] (Lab) [address] [facility], [place], [address], 07/28/2023 04:08:54 07/27/20 23 07/27/2023 HEMOG LOBIN A1C hemoglobin A1C 5.4 % 0-5.6 The Ameri can Diabe saumya Assoc iatio n recom mends that a prima ry goal of thera py shoul d be a HBA1C of < 7% and that physi cians shoul d reeva luate the treat ment regim en in patie nts with HBA1C value s consi stent ly > 8%. <5.7% Hannah l 5.7 - 6.4% Incre ased risk for diabe saumya >=6.5 % Diagn ostic of diabe saumya <7.0% Goal of thera py >8.0% Actio n sugge sted Not Available [facility] (Lab) [address] [facility], [place], [address], 07/28/2023 04:08:54 07/27/20 23 07/27/2023 IMAGE GUIDE D PAP AND HPV REGAR DLESS image guided Pap, HPV regardless of Pap result SEE RESULT S BELOW CASE REPOR T: Cytol ogy Gynec ologi ezra Repor t Case: [id number] Autho joe harris Provi nataly: Jair Gandhi Colle cted: 07/27 1519 EXCAVATING CONTRACTOR Order ing Locat ion: [place] Patho logy Recei samuel: 07/28 0726 First Scree n: Lucy Moralez, CT Patho logis t: Fredrick Romero MD Speci men: Scree gabi Pap - Image d, Cervi x STATE MENT OF ADEQU ACY: Satis facto ry for evalu ation Trans forma tion zone compo nent absen t FINAL DIAGN OSIS: Negat verna for Intra epith elial Lesio n or Osvaldo gutierrez (NIL) . Shift in mehreen sugge stive of bacte rial vagin osis. Elect fidel myles lars d by Fredrick Romero MD on 2022 at 2:26 PM ----- ----- ----- ----- ----- ----- ----- ----- ----- ----- ----- ----- ----- ----- ----- ----- ----- ---- HPV RESUL TS: HPV mRNA E6/E7 : No HPV mRNA Detec jayesh NOTE: This high risk HPV mRNA assay detec ts fourt een high- risk HPV types (16, 18, 31, 33, 35, 39, 45, 51, 52, 56, 58, 59, 66, 68) witho ut diffe renti ation . COMME NT: This speci men was revie wed by a Cytot echno logis t and/o r Patho logis t (as indic ated in this repor t) after evalu ation using the Thinp rep Imagi ng Syste m. CLINI EZRA INFOR MATIO N: Menst rual Statu s: LMP (if appli cable ): Clini ezra Histo ry/Pr eviou s Pap: Type of Neopl salvador (if appli cable ): Signi fican t Clini ezra Findi ngs: Other Histo ry: Hormo alexey (if appli cable ): PAP EDUCA TANYA L NOTE: The Pap Test is a scree gabi test with an inher ent false negat verna rate. Liqui d-bas ed sampl ing may decre ase, but will not elimi amado, false negat verna resul ts. A negat verna resul t does not precl ude the prese nce and/o r devel opmen t of disea se, since the prese nce of abnor mal cells in the sampl e depen ds on the locat ion of the lesio n and sampl ing techn ique. Zackery nued regul ar scree gabi is the best metho d of cance r preve ntion . If repor jayesh cytol ogic findi ng do not corre late with physi ezra and/o r histo rical findi ngs, furth er inves tigat ion is recom anup d, as clini chao vargas nted. Not Available [facility] (Lab) [address], [place], [address], 08/02/2023 15:30:14 08/01/20 24 08/01/2024 CBC W/DIF F WBC 7.0 10'3/ uL 3.5-10 .5 Not Available [facility] (Lab) [address], [place], [address], 08/02/2024 07:26:55 08/01/20 24 08/01/2024 CBC W/DIF F RBC 4.02 10'6/ uL (based on docume nted legal sex) 3.80-5 .20 Not Available [facility] (Lab) [address] [place], [address], 08/02/2024 07:26:55 08/01/20 24 08/01/2024 CBC W/DIF F HGB 13.2 g/dL (based on docume nted legal sex) 11.6-1 5.4 Not Available [facility] (Lab) [address] [place], [address], 08/02/2024 07:26:55 08/01/20 24 08/01/2024 CBC W/DIF F HCT 39.8 % (based on docume nted legal sex) 34.0-4 5.0 Not Available [facility] (Lab) [address], [place], [address], 08/02/2024 07:26:55 08/01/20 24 08/01/2024 CBC W/DIF F MCV 99.0 fL 80.0-9 9.0 Not Available [facility] (Lab) [address], [place], [address], 08/02/2024 07:26:55 08/01/20 24 08/01/2024 CBC W/DIF F MCH 32.8 pg 27.0-3 4.0 Not Available [facility] (Lab) [address] [facility], [place], [address], 08/02/2024 07:26:55 08/01/20 24 08/01/2024 CBC W/DIF F MCHC 33.2 g/dL 32.0-3 5.5 Not Available [facility] (Lab) [address] [facility], [place], [address], 08/02/2024 07:26:55 08/01/20 24 08/01/2024 CBC W/DIF F RDW 11.9 % 11.0-1 5.0 Not Available [facility] [facility] [address], [place], [address], 08/02/2024 07:26:55 08/01/20 24 08/01/2024 CBC W/DIF F plt 270 10'3/ uL 150-40 0 Not Available [facility] (Lab) [address], [place], [address], 08/02/2024 07:26:55 08/01/20 24 08/01/2024 CBC W/DIF F MPV 11.2 fL 8.8-12 .1 Not Available [facility] (Lab) [address], [place], [address], 08/02/2024 07:26:55 08/01/20 24 08/01/2024 CBC W/DIF F NRBC's 0.0 % 0.0 Not Available [facility] (Lab) [address], [place], [address], 08/02/2024 07:26:55 08/01/20 24 08/01/2024 CBC W/DIF F absolute NRBCs 0.0 10'3/ uL no refere nce range establ ished Not Available [facility] (Lab) [address], [place], [address], 08/02/2024 07:26:55 08/01/20 24 08/01/2024 CBC W/DIF F neutrophils 60.6 % 34.0-7 3.0 Not Available [facility] (Lab) [address], [place], [address], 08/02/2024 07:26:55 08/01/20 24 08/01/2024 CBC W/DIF F lymphocytes 27.0 % 15.0-5 0.0 Not Available [facility] (Lab) [address], [place], [address], 08/02/2024 07:26:55 08/01/20 24 08/01/2024 CBC W/DIF F monocytes 8.9 % 1.0-15 .0 Not Available [facility] (Lab) [address], [place], [address], 08/02/2024 07:26:55 08/01/20 24 08/01/2024 CBC W/DIF F eosinophils 2.4 % 0.0-8. 0 Not Available [facility] (Lab) [address], [place], [address], 08/02/2024 07:26:55 08/01/20 24 08/01/2024 CBC W/DIF F basophils 1.0 % 0.0-2. 0 Not Available [facility] (Lab) [address], [place], [address], 08/02/2024 07:26:55 08/01/20 24 08/01/2024 CBC W/DIF F immature granulocytes 0.1 % no define d refere nce range Not Available [facility] (Lab) [address], [place], [address], 08/02/2024 07:26:55 08/01/20 24 08/01/2024 CBC W/DIF F absolute neutrophils 4.2 10'3/ uL 1.5-8. 0 Not Available [facility] (Lab) [address], [place], [address], 08/02/2024 07:26:55 08/01/20 24 08/01/2024 CBC W/DIF F absolute lymphocytes 1.9 10'3/ uL 1.0-4. 0 Not Available [facility] (Lab) [address], [place], [address], 08/02/2024 07:26:55 08/01/20 24 08/01/2024 CBC W/DIF F absolute monocytes 0.6 10'3/ uL 0.2-1. 0 Not Available [facility] (Lab) [address], [place], [address], 08/02/2024 07:26:55 08/01/20 24 08/01/2024 CBC W/DIF F absolute eosinophils 0.2 10'3/ uL 0.0-0. 6 Not Available [facility] (Lab) [address], [place], [address], 08/02/2024 07:26:55 08/01/20 24 08/01/2024 CBC W/DIF F absolute basophils 0.1 10'3/ uL 0.0-0. 3 Not Available [facility] (Lab) [address], [place], [address], 08/02/2024 07:26:55 08/01/20 24 08/01/2024 CBC W/DIF F absolute immature granulocytes 0.0 10'3/ uL 0.00-0 .10 2023 5:26 AM: P indic ates parti al resul ts on a panel have been relea sed. Addit ional resul ts will uma w. 2023 5:26 AM: This resul t has been final verif ied. No addit ional or salvador ed resul ts are expec jayesh. Not Available [facility] (Lab) [address], [place], [address], 08/02/2024 07:26:55 08/01/20 24 08/01/2024 HEMOG LOBIN A1C hemoglobin A1C 5.5 % 0-5.6 The Ameri can Diabe saumya Assoc iatio n recom mends that a prima ry goal of thera py shoul d be a HBA1C of < 7% and that physi cians shoul d reeva luate the treat ment regim en in patie nts with HBA1C value s consi stent ly > 8%. <5.7% Hannah l 5.7 - 6.4% Incre ased risk for diabe saumya >=6.5 % Diagn ostic of diabe saumya <7.0% Goal of thera py >8.0% Actio n sugge sted Not Available [facility] (Lab) [address], [place], [address], 08/02/2024 07:26:56 08/01/20 24 08/01/2024 LIPID PANEL ,AMA (LDL- CALC) total cholesterol 181 mg/dL 0-199 Not Available [facility] (Lab) [address], [place], [address], 08/02/2024 07:26:56 08/01/20 24 08/01/2024 LIPID PANEL ,AMA (LDL- CALC) triglyceride s 101 mg/dL 0-150 NCEP Refer ence Value s for Trigl yceri nighat: Hannah l: <150 mg/dL Borde rline High: 150 - 199 mg/dL High: 200 - 499 mg/dL Very High: >/= 500 mg/dL Not Available [facility] (Lab) [address], [place], [address], 08/02/2024 07:26:56 08/01/20 24 08/01/2024 LIPID PANEL ,AMA (LDL- CALC) HDL cholesterol 61 mg/dL >40 Not Available [facility] (Lab) [address] [place], [address], 08/02/2024 07:26:56 08/01/20 24 08/01/2024 LIPID PANEL ,AMA (LDL- CALC) LDL cholesterol 101 mg/dL 0-99 high Cutof f value s recom anup d by the Natio nal Sally stero l Educa tion Progr am: EDWARD ABLE: Sally stero l <200 mg/dL LDL <100 mg/dL BORDE RLINE : Sally stero l 200-2 39 mg/dL LDL 101-1 59 mg/dL HIGHE R RISK: Sally stero l >240 mg/dL LDL >160 mg/dL , HDL <40 mg/dL Not Available [facility] (Lab) [address] [place], [address], 08/02/2024 07:26:56 08/01/20 24 08/01/2024 LIPID PANEL ,AMA (LDL- CALC) non-HDL cholesterol 120 mg/dL no refere nce range A reaso nable goal for non-H DL sally stero l is one that is 30 mg/dL highe r than the LDL sally stero l goal. Not Available [facility] (Lab) [address] [place], [address], 08/02/2024 07:26:56 08/01/20 24 08/01/2024 LIPID PANEL ,AMA (LDL- CALC) chol/HDL ratio 3.0 . 0.0-5. 0 On February 23, 2023, [facility] labor atori lam salvador ed the equat ion for calcu latin g estim ated low-d ensit y lipop rotei n-cho leste rol (LDL- C) from the Fried sara equat ion to the Dominique n/[facility] equat ion. This new equat ion is only valid for lipid panel s with trigl yceri nighat < 400 mg/dL . Velvet waiteon strat ed that this new equat ion will impro ve the accur acy of LDL-C , espec ially in scena cha when LDL-C dariusz ntrat ions are relat ively low (< 100 mg/dL ), trigl yceri nighat are eleva jayesh, or patie nt is non-f astin g. Refer ences : - Dominique bautista, Alf Rivera, Cecilio Samaniego , Melissa maki, Broderick Cabello, Broderick jeffries, Jackson [facility] , and Jared Batres . 2013. Comp ariso n of a Novel Metho d vs the Fried sara Equat ion for Estim ating Low-D ensit y Lipop rotei n Sally stero l Level s from the [facility] Lipid Profi le. PAUL: The Journ al of the Ameri can Medic al Assoc iatio n 310 (19): 2060- . - Parker carrillo V, Aleja J, Elke carrillo A, Ryan M, Florentino olivarez R, Isra carrillo E, Thien [facility] RS, Medardo SR, Dominique bautista SS. Fast ing Versu s Nonfa sting and Low-D ensit y Lipop rotei n Sally stero l Accur acy. Circu latio n. 2017Nov 02;137 (1):1 0-19. Not Available [facility] (Lab) [address], [place], [address], 08/02/2024 07:26:56 08/01/20 24 08/01/2024 CMP(C OMPRE HENSI VE METAB OLIC PANEL ) sodium 140 mmol/ L 133-14 6 Not Available [facility] (Lab) [address], [place], [address], 08/02/2024 07:26:56 08/01/20 24 08/01/2024 CMP(C OMPRE HENSI VE METAB OLIC PANEL ) potassium 4.2 mmol/ L 3.5-5. 1 Not Available [facility] (Lab) [address], [place], [address], 08/02/2024 07:26:56 08/01/20 24 08/01/2024 CMP(C OMPRE HENSI VE METAB OLIC PANEL ) chloride 103 mmol/ L 98-107 Not Available [facility] (Lab) [address], [place], [address], 08/02/2024 07:26:56 08/01/20 24 08/01/2024 CMP(C OMPRE HENSI VE METAB OLIC PANEL ) carbon dioxide 28 mmol/ L 21-31 Not Available [facility] (Lab) [address], [place], [address], 08/02/2024 07:26:56 08/01/2008/01/2024 CMP(C OMPRE HENSI VE METAB OLIC PANEL ) anion gap 9 mmol/ L 4-13 Not Available [facility] (Lab) [address], [place], [address], 08/02/2024 07:26:56 08/01/20 24 08/01/2024 CMP(C OMPRE HENSI VE METAB OLIC PANEL ) blood urea nitrogen 13 mg/dL 7-25 Not Available [facility] (Lab) [address], [place], [address], 08/02/2024 07:26:56 08/01/20 24 08/01/2024 CMP(C OMPRE HENSI VE METAB OLIC PANEL ) creatinine 0.91 mg/dL 0.60-1 .30 Not Available [facility] (Lab) [address], [place], [address], 08/02/2024 07:26:56 08/01/20 24 08/01/2024 CMP(C OMPRE HENSI VE METAB OLIC PANEL ) egfrcr (CKD-epi 2020) 79 mL/mi n/1.7 3_m2 >=60 Not Available [facility] (Lab) [address], [place], [address], 08/02/2024 07:26:56 08/01/20 24 08/01/2024 CMP(C OMPRE HENSI VE METAB OLIC PANEL ) calcium 9.3 mg/dL 8.3-10 .5 Not Available [facility] (Lab) [address], [place], [address], 08/02/2024 07:26:56 08/01/20 24 08/01/2024 CMP(C OMPRE HENSI VE METAB OLIC PANEL ) glucose 82 mg/dL 70-100 Not Available [facility] (Lab) [address], [place], [address], 08/02/2024 07:26:56 08/01/20 24 08/01/2024 CMP(C OMPRE HENSI VE METAB OLIC PANEL ) protein, total 7.3 g/dL 6.4-8. 3 Not Available [facility] (Lab) [address], [place], [address], 08/02/2024 07:26:56 08/01/20 24 08/01/2024 CMP(C OMPRE HENSI VE METAB OLIC PANEL ) albumin 4.4 g/dL 3.5-5. 0 Not Available [facility] (Lab) [address], [place], [address], 08/02/2024 07:26:56 08/01/20 24 08/01/2024 CMP(C OMPRE HENSI VE METAB OLIC PANEL ) ALT 11 units /L 9-43 Not Available [facility] (Lab) [address], [place], [address], 08/02/2024 07:26:56 08/01/20 24 08/01/2024 CMP(C OMPRE HENSI VE METAB OLIC PANEL ) alkaline phosphatase 51 units /L 34-104 Not Available [facility] (Lab) [address], [place], [address], 08/02/2024 07:26:56 08/01/20 24 08/01/2024 CMP(C OMPRE HENSI VE METAB OLIC PANEL ) AST 15 units /L 13-39 Not Available [facility] (Lab) [address], [place], [address], 08/02/2024 07:26:56 08/01/20 24 08/01/2024 CMP(C OMPRE HENSI VE METAB OLIC PANEL ) bilirubin, total 0.5 mg/dL 0.2-1. 2 Not Available [facility] (Lab) [address], [place], [address], 08/02/2024 07:26:56 08/01/20 24 08/01/2024 TSH, REFLE X FREE T4 TSH 1.93 uIU/m L 0.30-5 .33 Not Available [facility] (Lab) [address], [place], [address], 08/02/2024 07:26:57 08/01/20 24 08/01/2024 VITAM IN D, 25-OH (TOTA L D2/D3 ) vitamin D, 25-hydroxy, total 38.4 NG/mL 30.0-1 00.0 Sugge stive of Defic iency : <20 ng/mL Sugge stive of Insuf ficie ncy: 20-29 ng/mL Sugge stive of Suffi cienc y: 30-10 0 ng/mL Sugge stive of Toxic ity: >150 ng/mL Not Available [facility] (Lab) [address], [place], [address], 08/02/2024 07:26:57 08/01/20 24 08/01/2024 IMAGE GUIDE D PAP AND HPV REGAR DLESS image guided Pap, HPV regardless of Pap result SEE RESULT S BELOW CASE REPOR T: Cytol ogy Gynec ologi ezra Repor t Case: [id number] Autho joe g Provi nataly: Joshua Edmond MD Colle cted: 08/01 0917 Order ing Locat ion: [place] [facility] Recei samuel: 08/02 0634 First Scree n: Lucy Moralez, CT Patho logis t: Chad Salvador MD Speci men: Alexus ashley Pap - Image d, Cervi x STATE MENT OF ADEQU ACY: Satis facto ry for evalu ation Trans forma tion zone compo nent absen t ----- ----- ----- ----- ----- ----- ----- ----- ----- ----- ----- ----- ----- ----- ----- ----- ----- ---- FINAL DIAGN OSIS: Negat verna for Squam ous Intra epith elial Lesio n. Endom etria l cells prese nt in a woman over 45 years of age. Elect fidel acosta by Chad Salvador MD on 2023 at 1:11 PM ----- ----- ----- ----- ----- ----- ----- ----- ----- ----- ----- ----- ----- ----- ----- ----- ----- ---- HPV RESUL TS: HPV mRNA E6/E7 : No HPV mRNA Detec jayesh NOTE: This high risk HPV mRNA assay detec ts fourt een high- risk HPV types (16, 18, 31, 33, 35, 39, 45, 51, 52, 56, 58, 59, 66, 68) witho ut diffe renti ation . COMME NT: This speci men was revie wed by a Cytot echno logis t and/o r Patho logis t (as indic ated in this repor t) after evalu ation using the Thinp rep Imagi ng Syste m. CLINI EZRA INFOR MATIO N: Menst rual Statu s: LMP (if appli cable ): Clini ezra Histo ry/Pr eviou s Pap: Type of Neopl salvador (if appli cable ): Signi ficjennifer t Clini ezra Findi ngs: Other Histo ry: Hormo alexey (if appli cable ): PAP EDUCA TANYA L NOTE: Endom etria l cells after age 45, parti cular ly out of phase or after menop ause, may be assoc iated with khari bautista endom etriu m, hormo nal alter ation s and less commo nly, endom etria l/hoh rine abnor malit ies. Clini ezra corre ignris n is recom anup d. Not Available [facility] (Lab) [address], [place], [address], 08/09/2024 14:16:31 11/03/19 25 11/03/2024 IMAGE GUIDE D PAP AND HPV REGAR DLESS image guided Pap, HPV regardless of Pap result SEE RESULT S BELOW CASE REPOR T: Cytol ogy Gynec ologi ezra Repor t Case: [id number] Autho joe g Provi nataly: Joshua Edmond MD Colle cted: 11/03 1439 Order ing Locat ion: [place] [facility] [place] Recei samuel: 11/04 0136 First Alexus n: Laurie Pretty , CT Speci men: Alexus ashley Pap - Image d, Cervi x STATE MENT OF ADEQU ACY: Satis facto ry for evalu ation Trans forma tion zone compo nent prese nt ----- ----- ----- ----- ----- ----- ----- ----- ----- ----- ----- ----- ----- ----- ----- ----- ----- ---- FINAL DIAGN OSIS: Negat verna for Intra epith elial Chris bautista or Osvaldo gutierrez ([facility]) . Elect fidel sousa d by Laurie faust, CT on 2024 at 1244 [employer] UNLOADER ----- ----- ----- ----- ----- ----- ----- ----- ----- ----- ----- ----- ----- ----- ----- ----- ----- ---- HPV RESUL TS: HPV mRNA E6/E7 : No HPV mRNA Detec jayesh NOTE: This high risk HPV mRNA assay detec ts fourt een high- risk HPV types (16, 18, 31, 33, 35, 39, 45, 51, 52, 56, 58, 59, 66, 68) witho ut diffe renti ation . COMME NT: This speci men was revie wed by a Cytot echno logis t and/o r Patho logis t (as indic ated in this repor t) after evalu ation using the Thinp rep Imagi ng Syste m. CLINI EZRA INFOR MATIO N: Menst rual Statu s: LMP (if appli cable ): Clini ezra Histo ry/Pr eviou s Pap: Type of Neopl salvador (if appli cable ): Signi fican t Clini ezra Findi ngs: Other Histo ry: Hormo alexey (if appli cable ): PAP EDUCA TANYA L NOTE: The Pap Test is a scree gabi test with an inher ent false negat verna rate. Liqui d-bas ed sampl ing may decre ase, but will not elimi amado, false negat verna resul ts. A negat verna resul t does not precl ude the prese nce and/o r devel opmen t of disea se, since the prese nce of abnor mal cells in the sampl e depen ds on the locat ion of the lesio n and sampl ing techn ique. Zackery nued regul ar scree gabi is the best metho d of cance r preve ntion . If repor jayesh cytol ogic findi ng do not corre late with physi ezra and/o r histo rical findi ngs, furth er inves tigat ion is recom anup d, as christiana vargas nted. Not Available [facility] (Lab) [address], [place], [address], 11/11/2024 13:49:49 08/03/2008/03/2023 MAMMO , scree gabi, digit al, bilat eral No observ ation record ed. [facility] [address], [place], [address], 08/13/2023 11:36:11 09/18/20 24 09/14/2024 MAMMO , scree gabi, digit al, bilat eral No observ ation record ed. [facility] [address], [place], [address], 09/30/2024 22:12:45 Result Notes None recorded. Problems Name Problem SNOMED Code Status Onset Date Resolution Date Notes Provider Name and Address Organization Details Recorded Time SNOMED CT Concept Completed 201607/21/2021 Encntr for general adult medical exam w/o abnormal findings; Recorded Elsewhere : No Locati on: [facility] So urce: EHR Chron ic: N Practic e ID: 0001 Bill able Time: 08:15:00 AM Reyna Pulido [facility] 09:57:26 Speciali m [facility] medical examinat ion Completed 201407/21/2021 Gynecolog ical Examinati on;Record ed Elsewhere : No Locati on: [facility] So urce: EHR Chron ic: N Practic e ID: 0001 Bill able Time: 08:30:00 AM Reyna Pulido [facility] 1 09:57:29 Screenin g for malignan t neoplasm of cervix Completed 201107/21/2021 Screening for malignant neoplasms of the cervix;Re corded Elsewhere : No Locati on: [facility] So urce: EHR Chron ic: N Practic e ID: 0001 Bill able Time: 05:45:00 PM Reyna Pulido [facility] 1 09:57:22 Pregnanc y test negative [id number] Completed 201607/21/2021 Encounter for test, result negative; Recorded Elsewhere : No Locati on: [facility] So urce: EHR Chron ic: N Practic e ID: 0001 Bill able Time: 08:45:00 AM Reyna Pulido [facility] 1 09:57:11 Insertio n of intraute rine contrace ptive device Completed 201107/21/2021 INSERTION OF IUD;Recor ded Elsewhere : No Locati on: [facility] So urce: EHR Chron ic: N Practic e ID: 0001 Bill able Time: 10:00:00 AM Reyna Pulido [facility] 1 09:57:07 Family planning surveill ance Completed 201107/21/2021 Contracep tive surveilla nce, unspecifi ed;Record ed Elsewhere : No Locati on: [facility] So urce: EHR Chron ic: N Practic e ID: 0001 Bill able Time: 04:30:00 PM Reyna Pulido [facility] [address] 09:56:[address] Concept Completed 201807/21/2021 Well woman check w/o abnormal finding;R ecorded Elsewhere : No Locati on: [facility] So urce: EHR Chron ic: N Practic e ID: 0001 Bill able Time: 02:30:00 PM Reyna Pulido [facility] 1 09:57:28 Clinical finding Completed 201607/21/2021 Presence of (intraute rine) contracep tive device;Re corded Elsewhere : No Locati on: [facility] So urce: EHR Chron ic: N Practic e ID: 0001 Bill able Time: 08:45:00 AM Reyna Pulido [facility] 1 09:56:03 Adult health examinat ion Completed 201407/21/2021 ROUTINE MEDICAL EXAM;Wu rded Elsewhere : No Locati on: [facility] So urce: EHR Chron ic: N Practic e ID: 0001 Bill able Time: 08:30:00 AM Reyna Pulido [facility] 1 09:56:00 Evaluati on finding [id number] Completed 201807/21/2021 Oth abn and inconclus verna findings on dx imaging of breast;Re corded Elsewhere : No Locati on: [facility] So urce: EHR Chron ic: N Practic e ID: 0001 Bill able Time: 02:25:44 PM Reyna Pulido [facility] 1 09:56:01 Contrace ptive sheath status [id number] Completed 201607/21/2021 IUD follow up;Record ed Elsewhere : No Locati on: [facility] So urce: EHR Chron ic: N Practic e ID: 0001 Bill able Time: 08:30:00 AM Reyna Pulido [facility] 1 09:56:06 Postpart um care Completed 201107/21/2021 Routine postpartu m follow-up ;Recorded Elsewhere : No Locati on: [facility] So urce: EHR Chron ic: N Practic e ID: 0001 Bill able Time: 09:00:00 AM Reyna Pulido [facility] 1 09:57:10 Removal of intraute rine device Completed 201607/21/2021 Encounter for removal of intrauter ine contracep tive device;Re corded Elsewhere : No Locati on: [facility] So urce: EHR Chron ic: N Practic e ID: 0001 Bill able Time: 10:45:00 AM Reyna Pulido [facility] 1 09:57:16 Dyspareu bertin [id number] Completed 201107/21/2021 Dyspareun ia;Record ed Elsewhere : No Locati on: [facility] So urce: EHR Chron ic: N Practic e ID: 0001 Bill able Time: 05:30:00 PM Reyna Pulido null, [facility] 09:56:11 Single live from singleto n pregnanc y [id number] Completed 201007/21/2021 Mother with single liveborn; Practice ID: 0001 Reyna koenig [facility] 09:57:24 Routine antenata l care Completed 201007/21/2021 Supervisi on of other normal ;Practice ID: 0001 Reyna Pulido [facility] 09:57:17 Delivery normal [id number] Completed 201007/21/2021 Normal delivery; Practice ID: 0001 Reyna koenig [facility] 09:56:08 Uterine size for dates discrepa ncy [id number] Completed 201007/21/2021 UTERINE SIZE NIGHAT-ANTEP AR;Practi ce ID: 0001 Reyna Pulido [facility] 09:57:31 Pregnanc y test positive [id number] Completed 201007/21/2021 Positive Test;Prac meghana ID: 0001 Reyna Pulido [facility] 09:57:14 Acute sinusiti s [id number] Completed 201007/21/2021 Acute sinusitis , unspecifi ed;Practi ce ID: 0001 Reyna Pulido [facility] 09:55:57 anatomy study Completed 201007/21/2021 SCRN [facility] SURVEY;Pr actice ID: 0001 Reyna Pulido [facility] 09:57:05 Problem Notes None recorded. Procedures Surgical History Date Name Laterality Status Provider Name and Address Organization Details Recorded Time Date of Last Pap Smear completed Hedy Gama [facility] 11/03/2024 14:07:01 3 Date of Last Mammogram completed Hedy Natan [facility] 08/01/2024 09:23:37 0 section completed [facility] 08/17/2020 14:57:06 8 Colposcopy completed [facility] 08/17/2020 14:57:21 6 Removal of ovarian cyst(s) completed [facility] 08/17/2020 14:56:23 3 operation on nose completed [facility] 08/17/2020 14:56:51 Imaging Results None recorded. Procedure Notes None recorded. Medical Equipment None Reported. Allergies Allergen ID Allergen Name Allergen Category Reaction Reaction Severity Criticality Documentation Date Start Date Code Code System Note Provider Name and Address Organization Details Recorded Time 1924 Substance with sulfonami de structure and antibacte rial mechanism of action (substanc e) medicatio n Not available Not available Not available 07/04/2020 [id number] EDWAR koenig [facility] 0 09:23:23 Medications Name Sig Start Date Stop Date Status Note LastModified by Organization Details LastModified Time Vitamin B-6 25 mg tablet 04/28 completed Prescrib ed Elsewher e: Yes Loca tion: Basilio [facility] M odify By: david berg DateTime : 04/22/20 17 08:15:00 AM Not Available Not Available Not Available azithromy curt 250 mg tablet TAKE 2 TABLETS BY MOUTH FOR 1 DAY THEN TAKE 1 TABLET BY MOUTH DAILY FOR 4 DAYS 11/03 completed Not Available Not Available Not Available benzonata te 100 mg capsule TAKE 2 CAPSULES BY MOUTH THREE TIMES DAILY NEEDED FOR COUGH active Not Available Not Available No t Available cephalexi n 500 mg capsule 07/04 completed Not Available Not Available Not Available magnesium 250 mg tablet 04/28 completed Prescrib ed Elsewher e: Yes Loca tion: Basilio olivarez [facility] odify By: david dasilvaunter DateTime : 04/22/20 17 08:15:00 AM Not Available Not Available Not Available Baby Aspirin 81 mg chewable tablet active Not Available Not Available Not Available methylpre dnisolone 4 mg tablets in a dose pack 07/04 completed Not Available Not Available Not Available Vitamin D2 1,250 mcg (50,000 unit) capsule take 1 capsule by oral route every week 05/15 completed Prescrib ed Elsewher e: No Locat ion: Basilio olivarez [facility] odify By: bashir dasilvaunter DateTime : 04/23/20 17 10:01:42 AM Not Available Not Available Not Available multivita min capsule take 1 capsule by oral route every day 04/22 completed Prescrib ed Elsewher e: Yes Loca tion: Jeovanny sher [facility] odify By: baldomero berg DateTime : 04/10/20 14 08:30:00 AM Not Available Not Available Not Available Vitamin B-12 1,000 mcg tablet 04/28 completed Prescrib ed Elsewher e: Yes [facility] By: david berg DateTime : 04/22/20 17 08:15:00 AM Not Available Not Available Not Available iron ER 325 mg (65 mg iron) capsule,e xtended release take 1 Tablet by Oral route 3 times every day 05/24 completed Prescrib ed Elsewher e: Yes [facility] By: monica ricci DateTime : 11/25/19 12 09:00:00 AM Not Available Not Available Not Available nitrofura ntoin monohydra te/macroc rystals 100 mg capsule 07/04 completed Not Available Not Available Not Available Vitamin D 07/21 completed Not Available Not Available Not Available ParaGard T 380A active Not Available Not Available Not Available [place] 3-6-9 Triple [place] 1,200 mg (400 mg-400mg- 400mg) capsule 05/24 completed Prescrib ed Elsewher e: No Locat ion: Basilio olivarez [facility] odify By: monica ricci DateTime : 01/20/20 12 04:30:00 PM Not Available Not Available Not Available 10 mg-400 mcg capsule 04/05 completed Prescrib ed Elsewher e: Yes Loca tion: Basilio ol[facility] odify By: yesenia ricci DateTime : 12/24/19 12 10:00:00 AM Not Available Not Available Not Available B12 active Not Available Not Availa ble Not Available Probiotic 10 billion cell capsule 07/24 completed Prescrib ed Elsewher e: Yes Loca tion: Basilio ol[facility] odify By: alberto faust DateTime : 04/18/20 15 08:30:00 AM Not Available Not Available Not Available Vitamin D3 50 mcg (2,000 unit) capsule 2018 active Prescrib ed Elsewher e: Yes Loca tion: Basilio olivarez [facility] odify By: bashir berg DateTime : 05/15/20 19 02:30:00 PM Not Available Not Available Not Available ADVANCED Calcium 200 mg-200 unit-16 mcg tablet active Not Available Not Available Not Available theanine active Not Available Not Avai lable Not Available Adult Probiotic active Not Available Not Available No t Available ascorbic acid (vitamin C) 500 mg capsule 07/24 completed Not Available Not Available Not Available Little Remedies Cough-Imm une 0.7 gram-3 gram/7.5 mL oral liquid 05/15 completed Prescrib ed Elsewher e: Yes Loca tion: Basilio ol[facility] odify By: bashir berg DateTime : 04/28/20 18 08:15:00 AM Not Available Not Available Not Available Complete [place] active Not Available Not Available Not Available Probiotic (B. coagulans ) 07/21 completed Not Available Not Available Not Available elderberr y fruit 460 mg-elderb erry flower 115 mg capsule 07/22 completed Prescrib ed Elsewher e: Yes Loca tion: [facility]ilio ol[facility] odify By: bashir berg DateTime : 05/15/20 19 02:30:00 PM Not Available Not Available Not Available Flucelvax Quad (PF) 60 mcg (15 mcg x 4)/0.5 mL IM syringe 07/21 completed Not Available Not Available Not Available ashwagand hernandez root extract active Not Available Not Available Not Available Magnesium Complex active Not Available Not Available Not Available D3-5000 active Not Available Not Avail able Not Available Vitals Date Recorded Body height Body mass index (BMI) Body weight Systolic blood pressure Diastolic blood pressure Provider Name and Address Organization Details Last Updated DateTime 11/03/2024 160.02 cm 32.1 kg/m2 69349.22 g 116 mm[Hg] 75 mm[facility]Hg[facility] 14:06:25 Date Recorded Body height Body mass index (BMI) Body weight Systolic blood pressure Diastolic blood pressure Provider Name and Address Organization Details Last Updated DateTime 07/22/2021 162.56 cm 28.7 kg/m2 92760.93 g 109 mm[Hg] 73 mm[Hg] [facility] 1 09:42:15 Date Recorded Body height Body weight Systolic blood pressure Diastolic blood pressure Provider Name and Address Organization Details Last Updated DateTime 07/24/2022 160.02 cm 38333.7 g 120 mm[Hg] 80 mm[Hg] [facility] 07/24/2022 09:44:00 Date Recorded Body height Body mass index (BMI) Body weight Systolic blood pressure Diastolic blood pressure Provider Name and Address Organization Details Last Updated DateTime 07/27/2023 160.02 cm 30.5 kg/m2 17060.89 g 113 mm[Hg] 73 mm[Hg] Odette Randolph [facility] 3 09:36:11 Date Recorded Body height Body mass index (BMI) Body weight Systolic blood pressure Diastolic blood pressure Provider Name and Address Organization Details Last Updated DateTime 08/01/2024 160.02 cm 31 kg/m2 86010.66 g 111 mm[Hg] 73 mm[Hg] [facility] 4 09:34:26 Social History Question Answer Notes LastModified by Organizat ion Details LastModified Time Tobacco Smoking Status Former Smoker NIKKIE BLELORENZO [facility], [facility] 07/27/2023 09:15:09 Do You Have An Advance Directive? No Information n ot available 07/22/2021 How Many Years Have You Consumed Alcohol? 20 Information not available 07/22/2021 Are You Blind Or Do You Have Difficulty Seeing? No Information n ot available 07/21/2021 What Is Your Level Of Caffeine Consumption? Heavy Information not available 07/22/2021 In The 14 Days Before Symptom Onset, Have You Had Close Contact With A Laboratory-confirm ed COVID-19 While That Case Was Ill? No Information n ot available 07/22/2021 In The 14 Days Before Symptom Onset, Have You Had Close Contact With A Person Who Is Under Investigation For COVID-19 While That Person Was Ill? No Information not available 07/22/2021 Have You Been To An Area Known To Be High Risk For COVID-19? No Information not available 07/22/2021 Are You Deaf Or Do You Have Serious Difficulty Hearing? No Information not available 07/21/2021 What Type Of Diet Are You Following? REGULAR Information n ot available 07/21/2021 What Is The Highest Grade Or Level Of School You Have Completed Or The Highest Degree You Have Received? [id number] Information not available 07/22/2021 Are There Any Guns Present In Your Home? No Information not available 07/22/2021 What Was The Date Of Your Most Recent Tobacco Screening? 07/27/2023 [email or web address] Information not available 07/27/2023 Do You Use Protection During Sex? No Information not available 07/22/2021 Do You Use Your Seat Belt Or Car Seat Routinely? Yes Information not available 07/22/2021 Do You Have Smoke And Carbon Monoxide Detectors In Your Home? Yes Information not available 07/22/2021 How Much Tobacco Do You Smoke? No [email or web address] Information not available 08/17/2020 Do You Use Sunscreen Routinely? Yes Information not available 07/22/2021 Have You Used IV Drugs? No Information not available 07/22/2021 Do You Have Difficulty Walking Or Climbing Stairs? No [email or web address] Information not available 08/01/2024 Sex: Unknown Functional Status Question Answer Note LastModified by Organizat ion Details LastModified Time Do you use any illicit or recreational drugs? No Information not available 07/21/2021 What is your level of alcohol consumption? Moderate Information not available 07/22/2021 Do you or have you ever used smokeless tobacco? Never used smokeless tobacco Information not available 07/27/2023 Are you able to walk? [email or web address] Information not available 07/21/2021 Are you able to care for yourself? 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 No Information not available 08/01/2024 Do you or have you ever used e-cigarettes or vape? Never used electronic cigarettes Information not available 07/27/2023 What is your exercise level? Moderate [email or web address] Information not available 08/01/2024 Mental Status Question Answer Note LastModified by Organization D etails LastModified Time Do you feel stressed (tense, restless, nervous, or anxious, or unable to sleep at night)? [id number] Information not available 07/22/2021 Family History Relationship Description Onset Age of this Age Resolved Age Notes LastModified by Organization Details LastModified Time Maternal Grandfather Diabetes mellitus [email or web address] Not available 2019 09:24:01 Mother Hypertensive disorder [email or web address] Not available 2019 09:24:11 Father Pulmonary embolism [email or web address] Not available 2024 13:49:51 Medical History Condition Response Allergies (Food, seasonal, environmental ) N Other Y Drug/Latex Allergies/Reactions Y Blood Transfusion N Breast Cancer N Dermatologic Disorders N Lung Disease N Defects or Inherited Disease N Breast Problem N Gestational Diabetes N Hematologic disorders Y Anesthesia Complications N History of STI Y Deep Vein Thrombosis N Polycystic ovary syndrome N Anxiety Disorder N Autoimmune disease N Arthritis N Polyps N Infertility N Acid Reflux (GERD) N History of abnormal pap Y Cancer N Varicosities N Stroke N Neurologic/Epilepsy N Endometriosis N High Cholesterol N Fibromyalgia N Headaches N Kidney Disease N Heart Problems N Thyroid Problems N Kidney or Bladder Problems N GI Problems N Eating Disorder N Anemia N Art (IVF or FET) N Psychiatric Illness N Ovarian Cancer N Diabetes N Pulmonary (TB, Asthma) N Hepatitis/Liver Disease N No Past Medical History N Eczema N Urinary Tract Infection N Abuse/Domestic Violence N Asthma N Trauma/Violence N Depression/ depression N Heart Disease N Pre-Eclampsia N Hypertension N Osteoporosis N Thrombophilias N Gynecological History Statement/Question Response Abnormal Pap Y Flow Moderate Date of Last Mammogram 09/01/2023 Date of LMP 10/11/2024 N On BCP's at Conception? N STIs/STDs Y Was last menstrual period normal Y HPV Vaccine Y Duration of Flow (days) 5 Current Control Method IUD Age at First Child 29 Are cycles usually normal Y Frequency of Cycle (Q days) 26 Sexually Active? Y Menses Monthly Y Age of first menstrual cycle 10 Date of Last Pap Smear 08/01/2024 Sexual Problems? N LMP Approximate Desired Control Method IUD N Obstetrics History GPAL:G 2 P 2 0 0 2 Type Value Full Term 2 Living 2 Total 2 Past Encounters Encounter ID Performer Location Encounter Start Date Encounter Closed Date Diagnosis/Indication Diagnosis SNOMED-CT Code Diagnosis ICD10 Code Diagnosis Note [id number] Lina Caruso [facility] [address] [address] 07/04/2020 09:21:01 07/04/2020 10:09:57 Gynecologic examination 99567152 Z01.419 Suggested Calcium with Vitamin D 1200-1500m g daily. Patient advised to get an annual flu shot in the fall and she could obtain at [facility] or [facility] care clinic. Also to obtain TDap vaccinatio n if you have not had one in the last 10 years. Recommend yearly mammograms . Encouraged monthly self breast exams. Encourage safe sexual practices, to use condoms and limit partners if not already in a monogamous relationsh ip. Engage in daily exercise of low impact aerobic exercise 45-60 minutes 4-5 times weekly. Avoid tobacco and illicit drugs as well as using moderation with alcohol intake less than 1-2 8 oz beverages daily. This lifestyle behavior pattern will lead to less health conditions and longer life span. If BMI greater than 25 weight watchers or dietary consult advised. All questions have been answered. Patient appears to understand informatio n, but if you have any questions please call or respond to this email. Adult heal th examination [id number] Z00.00 [id number] Lina Caruso , [facility] [address] [address] 08/17/2020 11:53:16 08/19/2020 15:04:13 Postcoital bleeding 20800507 N93.0 Today's exam was wnl. We agreed to keep diary of PCB & f/u for this at her [employer]. IUD seems to be in place. Option to do US & blood work moving forward: TSH, Prolactin, CBC, CMP or STD/vag cx's if needed. Denied need for std screening today. Time spent in visit is a total of 15 mins with at least 50% of visit consisting of counseling and review of plan of care. IUD check 243571044 Z30. 675 NOTE: Patient had left but realized that IUD strings that were visualized were dark like mirena IUD strings & not white like paraguard. Will have triage team contact patient to discuss as nextgen chart looks like mirena was placed. Want pt to know as expiration of these devices is significan tly different & patient was wanting a method w/o hormones so want to make sure she is aware. Would recommend return to office for string check to ensure paraguard vs mirena. [id number] Lina Caruso , [facility] [address] [address] 07/22/2021 09:23:38 07/22/2021 11:00:36 Gynecologic examination [id number] Z01.419 Suggested Calcium with Vitamin D 1200-1500m g daily. Patient advised to get an annual flu shot in the fall and she could obtain at [facility] or [facility] take care clinic. Also to obtain TDap vaccinatio n if you have not had one in the last 10 years. Recommend yearly mammograms . Encouraged monthly self breast exams. Encourage safe sexual practices, to use condoms and limit partners if not already in a monogamous relationsh ip. Engage in daily exercise of low impact aerobic exercise 45-60 minutes 4-5 times weekly. Avoid tobacco and illicit drugs as well as using moderation with alcohol intake less than 1-2 8 oz beverages daily. This lifestyle behavior pattern will lead to less health conditions and longer life span. If BMI greater than 25 weight watchers or dietary consult advised. All questions have been answered. Patient appears to understand informatio n, but if you have any questions please call or respond to this email. Pap/sentST D declinedPa raguard appears to be in place (bottom portion of strings slightly discolored but top portion is white (Previous chart states she got mirena but pt adamant about having paraguard) .Still has full monthly period since having it placed.If there is any question to this we discussed changing it out at 6yrs vs 10yrs as a precaution . Adult [facility] examination [id number] Z00.00 [id number] Lina Caruso , [facility] [address] [address] 07/24/2022 09:13:41 07/24/2022 09:55:16 Gynecologic examination 46436302 Z01.419 Z11.51 Suggested Calcium with Vitamin D 1200-1500m g daily. Patient advised to get an annual flu shot in the fall and she could obtain at [facility] or [facility] care clinic. Also to obtain TDap vaccinatio n if you have not had one in the last 10 years. Recommend yearly mammograms . Encouraged monthly self breast exams. Encourage safe sexual practices, to use condoms and limit partners if not already in a monogamous relationsh ip. Engage in daily exercise of low impact aerobic exercise 45-60 minutes 4-5 times weekly. Avoid tobacco and illicit drugs as well as using moderation with alcohol intake less than 1-2 8 oz beverages daily. This lifestyle behavior pattern will lead to less health conditions and longer life span. If BMI greater than 25 weight watchers or dietary consult advised. All questions have been answered. Patient appears to understand informatio n, but if you have any questions please call or respond to this email. Pap/hpv sent STD Screen declined Genetic Screen discussed Colon Screen na Dexa Screen na Routine Labs orderedMam mo ordered Adult [facility] examination [id number] Z00.00 Vitamin D deficiency 347 82436 E55.9 [id number] Lina Caruso , [facility] [address] [address] 07/27/2023 09:14:45 07/27/2023 10:02:54 Gynecologic examination [id number] Z01.419 Z11.51 Suggested Calcium with Vitamin D 1200-1500m g daily. Patient advised to get an annual flu shot in the fall and she could obtain at [facility] or [facility]. Also to obtain TDap vaccinatio n if you have not had one in the last 10 years. Recommend yearly mammograms . Encouraged monthly self breast exams. Encourage safe sexual practices, to use condoms and limit partners if not already in a monogamous relationsh ip. Engage in daily exercise of low impact aerobic exercise 45-60 minutes 4-5 times weekly. Avoid tobacco and illicit drugs as well as using moderation with alcohol intake less than 1-2 8 oz beverages daily. This lifestyle behavior pattern will lead to less health conditions and longer life span. If BMI greater than 25 weight watchers or dietary consult advised. All questions have been answered. Patient appears to understand informatio n, but if you have any questions please call or respond to this email. Pap/hpv sentSTD Screen declinedGe netic Screen discussedC olon Screen naDexa Screen naRoutine Labs orderedMam mo ordered Screening mammography 24 375369 Z12.31 Adult [facility] examination [id number] Z00.00 Vitamin D deficiency 347 47904 E55.9 [id number] RADHA COURTNEY MD [facility] [address] [address] 08/01/2024 09:04:33 08/01/2024 10:08:47 Screening mammography [id number] Z12.31 Adult [facility] th examination [id number] Z00.00 Vitamin D deficiency 347 10053 E55.9 Gynecologi c examination 76645013 Z01.419 [facility]- Cervical cancer screening: Pap smear obtained today, will follow up on the results with the patient as they become available- Breast cancer screening: mammogram ordered- Colon cancer screening: discussed- HPV immunizati on: does not qualify- STD testing: declined- hereditary cancer screening: does not qualify for testing [id number] RADHA COURTNEY MD [facility] [address] [address] 11/03/2024 13:49:29 11/03/2024 14:35:35 Specimen with abnormal presence of endometrial cells [id number] R87.619 - endometria l cells on pap smear- repeat collected today to confirm presence prior to EMB if needed- LMP 10/11/24, has not had any spotting Health Concerns Section Related Observation LastModified by Organization Detai ls LastModified Time None Recorded Concern Status LastModified by Organization Details LastModified Time None Recorded Advance Directives Directive N: Payers Encounter Date Sequence Insurance Name Policy Number Policy Heller Covered Member ID Heller Member ID Guarantor Name 07/22/2021 1 [employer] [id number] Genet Nelda Archer [id number] Genet Lutz Archer 07/24/2022 1 [employer] [id number] Genet A Archer [id number] Genet Lutz Archer 07/27/2023 1 [place] [id number] Genet A Archer [id number] Genet Lutz Archer 08/01/2024 1 [place] [id number] Genet Lutz Archer [id number] Genet Lutz Archer 11/03/2024 1 [place] [id number] Genet A Archer [id number] Genet Lutz Archer 11/03/2024 2 [place] [id number] Genet Archer [id number] Genet Nelda Archer Notes Date Note Type Note Provider Name and Address Organization Details Recorded Time 07/22/2021 text/html Annual GYNReport ed bypatient.Menstrual cycle:Normal menses Urinary symptoms:No hematuria; No incontinence Vulva:No genital lesion Vagina:Normal vaginal discharge Breast:No breast pain; No breast lump; No nipple discharge Current Contraception:Satisf ied with current contraception; Monogamous relationship; Intrauterine device (iud) Sexual complaints:No sexual complaints; No pain during intercourse; Normal libido Menopausal Symptoms:No menopausal symptoms; Normal vaginal lubrication Psychological symptoms:No depression; No anxiety; No PMDD Preventive measures:Encourage self breast examination; Encourage regular exercise; Encourage no tobacco use; Encourage regular mammograms starting age 40; Followed with Q3 year pap smear and high risk HPV typing; Needs to schedule mammogram [facility] [address], [place], [address], [facility] 07/22/2021 10:06:46 07/24/2022 text/html Annual GYNReport ed bypatient.History:no gynecologic complaints Menstrual cycle:Normal menses Urinary symptoms:No hematuria; No incontinence Vulva:No genital lesion Vagina:Normal vaginal discharge Breast:No breast pain; No breast lump; No nipple discharge Current Contraception:Satisf ied with current contraception; Intrauterine device (iud) Sexual complaints:No sexual complaints; No pain during intercourse; Normal libido Menopausal Symptoms:No menopausal symptoms; Normal vaginal lubrication Psychological symptoms:No depression; No anxiety; No PMDD Preventive measures:Encourage self breast examination; Encourage regular exercise; Encourage no tobacco use; Encourage regular mammograms starting age 40; Followed with yearly pap smears; Needs to schedule mammogram [facility] [address], [place], [address], [facility] 07/24/2022 09:53:36 07/27/2023 text/html Annual GYNReport ed bypatient.History:no gynecologic complaints Menstrual cycle:Normal menses Urinary symptoms:No hematuria; No incontinence Vulva:No genital lesion Vagina:Normal vaginal discharge Breast:No breast pain; No breast lump; No nipple discharge Current Contraception:Satisf ied with current contraception; Intrauterine device (iud) Sexual complaints:No sexual complaints; No pain during intercourse; Normal libido Menopausal Symptoms:No menopausal symptoms; Normal vaginal lubrication Psychological symptoms:No depression; No anxiety; No PMDD Preventive measures:Encourage self breast examination; Encourage regular exercise; Encourage no tobacco use; Encourage regular mammograms starting age 40; Followed with yearly pap smears; Needs to schedule mammogram [facility] [address], [place], [address], [facility] 07/27/2023 09:53:04 08/01/2024 text/html Presents today f or her annual well-woman exam. Denies abnormal vaginal discharge. She is sexually active and denies dyspareunia. She is using Paraguard for contraception, and she states that she is satisfied with this method. She has not noticed any changes or masses in her breasts. LMP 07/17/24. Periods are Q28 days and last 5 days. Flow is moderate, no intermenstrual spotting. RADHA COURTNEY MD [address], [place], [address], [facility] 08/01/2024 10:05:45 11/03/2024 text/html Patient presents for repeat pap smear indicated for previous pap smear with endometrial cells. LMP 10/11/24 RADHA COURTNEY MD [address], [place], [address], [facility] 11/03/2024 14:32:37 OBGyn Episode Ob Episode Information Episode Created Date Number of Fetuses Patient Bloodtype Patient rh Status Prepregnancy Weight lbs Domestic Partner Domestic Partner Phone Father Name Rectification Printer Status 07/04/20 20 1 CLOSED Fetus Data First Name Last Name Admitted to NICU Weight (g) Sex Living Outcome Pediatric Complications Fetus ID Race Codes Race Delivery Type 3231.84 3 M Full Term 4256 V Back Erasto Calculation Initial Erasto Date Initial Exam Date Initial Exam Provider Initial Ultrasound Date Last Menstrual Period Date Ultra Sound Weeks Gestation 0 Eighteen To Twenty Week Erasto Update Ultra Sound Date Fundal Height At Umbil Quickening Date Ultra Sound Latest Weeks Gestation Final Erasto Confirmed By Final Erasto Confirmed Date Final Erasto Date Ultra Sound Latest Days Gestation 0 0 Menstrual History Last Menstrual Date Menses Monthly On Bcp Conception Prior Menses Frequency Hcg Plus Date Menarche Onset Age Delivery Information Delivery Date Delivery Type Labor Anesthesia Weeks Gestation Incision Type Labor Labor Length Hrs Delivered By Post Complications Tubal Sterilization Discharge Date Comments 1 38 Discharge Information Feeding Method Contraceptive Method Maternal HG B and HCT Levels Ob Episode Information Episode Created Date Number of Fetuses Patient Bloodtype Patient rh Status Prepregnancy Weight lbs Domestic Partner Domestic Partner Phone Father Name Rectification Printer Status 07/04/20 20 1 CLOSED Fetus Data First Name Last Name Admitted to NICU Weight (g) Sex Living Outcome Pediatric Complications Fetus ID Race Codes Race Delivery Type 3572.03 7 M Full Term 4255 Primary Erasto Calculation Initial Erasto Date Initial Exam Date Initial Exam Provider Initial Ultrasound Date Last Menstrual Period Date Ultra Sound Weeks Gestation 0 Eighteen To Twenty Week Erasto Update Ultra Sound Date Fundal Height At Umbil Quickening Date Ultra Sound Latest Weeks Gestation Final Erasto Confirmed By Final Erasto Confirmed Date Final Erasto Date Ultra Sound Latest Days Gestation 0 0 Menstrual History Last Menstrual Date Menses Monthly On Bcp Conception Prior Menses Frequency Hcg Plus Date Menarche Onset Age Delivery Information Delivery Date Delivery Type Labor Anesthesia Weeks Gestation Incision Type Labor Labor Length Hrs Delivered By Post Complications Tubal Sterilization Discharge Date Comments 0 40 Discharge Information Feeding Method Contraceptive Method Maternal HG B and HCT Levels
--- OUTSIDE RECORDS SUMMARY | 2025-04-10 01:06 | XMS_ITS | Referral Summary ---
Author Organization [address] Address [address] [place] [address] Care Team Providers Care Dairy Farm Operator Name Role Phone No, Physician Primary Care Provider [phone] Allergies Active Allergy Reactions Criticality Noted Date Comments Sulfa Rash Medium 09/27/2023 fever Medications No known medications Active Problems No known active problems Social History Tobacco Use Types Packs/Day Years Used Date Smoking Tobacco: Never Assessed Comments Unknown Sex and Gender Information Value Date Recorded Sex Assigned at Not on file Legal Sex Female 8:06 AM CDT Gender Identity Not on file Sexual Orientation Not on file Last Filed Vital Signs Vital Sign Reading Time Taken Comments Blood Pressure 134/84 09/27/2023 5:33 PM SADDLE STITCHER Pulse 98 09/27/2023 5:33 PM SADDLE STITCHER Temperature 36.8 C (98.2 F) 09/27/2023 5:33 PM SADDLE STITCHER Respiratory Rate 18 09/27/2023 5:33 PM SADDLE STITCHER Oxygen Saturation 97% 09/27/2023 5:33 PM SADDLE STITCHER Inhaled Oxygen Concentration - - Weight 79.9 kg (176 lb 3.2 oz) 09/27/2023 5:33 P M SADDLE STITCHER Height 160 cm (5' 3) 09/27/2023 5:33 PM SADDLE STITCHER Body Mass Index 31.21 09/27/2023 5:33 PM SADDLE STITCHER Plan of Treatment Not on file Insurance [facility] O[facility] Care Teams Dairy Farm Operator Relationship Specialty Start Date End Date No, Physician PCP - General 08/08/21
--- OUTSIDE RECORDS SUMMARY | 2025-04-10 01:06 | XMS_ITS | Clinical Summary ---
Author Organization [facility] Address [address] [address] Phone Care Team Providers Care Time Motion Analyst Name Role Phone Monica Love MD Primary Care Provider [phone] Social History Tobacco Use Types Packs/Day Years Used Date Smoking Tobacco: Never Assessed Comments Unknown Sex and Gender Information Value Date Recorded Sex Assigned at Not on file Legal Sex Female 3:30 PM CDT Gender Identity Not on file Sexual Orientation Not on file Plan of Treatment Health Maintenance Due Date Last Done Comments Hepatitis C Virus (HCV) Screening 1978 TdaP Immunization 1978 Hepatitis B Immunization (1 of 3 - 19+ 3-dose series) 1997 Cologuard 2023 Colonoscopy 2023 Colorectal Cancer Screening 2023 Immunochemical Fecal Occult Blood 2023 SARS-COV-2 Immunization ( season) 2024 10/07/2021, 02/07/2021, 01/07/2021 Influenza Immunization (Season Ended) 2025 07/30/2020, 07/19/2019, 07/19/2018, Additional history exists Respiratory Syncytial Virus (RSV) Immunization (Adult) (1 - 1-dose 75+ series) 2053 Human Papillomavirus (HPV) Immunization Aged Out No longer eligible based on patient's age to complete this topic Meningococcal Immunization (ACWY) Aged Out No longer eligible based on patient's age to complete this topic Pneumococcal Immunization Combined Aged Out No longer eligible based on patient's age to complete this topic Rotavirus Immunization Aged Out No lo nger eligible based on patient's age to complete this topic Insurance [employer] Care Teams Time Motion Analyst Relationship Specialty Start Date End Date Monica Love MD [address] [facility] [address] [place] [address] PCP - General Family Medicine 08/08/21
[2025-04-10 06:46] VITALS: BP 107/74; PULSE 88; RESP 18; TEMP 36.8; O2SAT 99
[2025-04-10] MEDS: LACTATED RINGERS 1,000 ML 150 ML IV CONT (07:04)
--- NOTE | 2025-04-10 07:05 | P.PNAN_ITS ---
Anes - Initial Pre Proc Eval Procedure: Operation Date: 04/10/25 08:00 Proposed Procedures p Screening Colonoscopy - Yuniel Talbot MD Date/Time: 04/10/25 07:05 Surgeon: Yuniel Talbot MD Pre Op Diagnosis: Encounter for screening for malignant neoplasm of Patient Data Age: 44 Gender: F Height: 1.6 m Weight: 78.4 kg Last Vital Signs Temp 36.8 C 04/10/25 06:46 Pulse 88 04/10/25 06:46 Resp 18 04/10/25 06:46 BP 107/74 04/10/25 06:46 Pulse Ox 99 04/10/25 06:46 O2 Del Method Room Air 04/10/25 06:46 Allergies Allergy/AdvReac Type Severity Reaction Status Date / Time Sulfa (Sulfonamide Allergy Mild RASH, Verified 04/10/25 06:45 Antibiotics) ELEVATED TEMP (104 Home Medications ?Medication ?Instructions ?Recorded ?Confirmed ?Type cholecalciferol (vitamin D3) 50 50 mcg PO DAILY 06/10/23 03/29/25 History mcg (2,000 unit) capsule omega-3 fatty acids 500 mg capsule 500 mg PO DAILY 06/10/23 03/29/25 History vitamin B complex (B 1 tablet PO DAILY 06/10/23 03/29/25 History Complex-Vitamin B12 tablet) aspirin 81 mg tablet,delayed 81 mg PO DAILY 01/01/25 03/29/25 History release (Adult Aspirin Regimen) lactobacillus combination no.4 3 3,000 mmu cells PO DAILY 03/29/25 03/29/25 History billion cell capsule (Probiotic) loratadine 10 mg tablet (Claritin) 10 mg PO DAILY 03/29/25 03/29/25 History Patient hx anesthesia problems: none Family hx anesthesia problems: none Results Review: All pre-operative results and documents have been reviewed as part of the pre- operative evaluation. [facility] Past Medical History Medical History Laceration without foreign body, right lower leg, subsequent encounter Laceration of finger Abnormal laboratory test Urinary tract infection, site not specified URI, acute Dysfunction of right eustachian tube Adverse reaction to diphtheria, tetanus, and pertussis vaccine Acute non-recurrent maxillary sinusitis Thoracolumbar back pain Surgical History Surgical History Hx of LASIK Family History Family History Father Family history of blood dyscrasia, Onset Age: 43 Social History Social History Social History: Smoking status: Former smoker Tobacco type: cigarettes Second hand tobacco smoke exposure: No Alcohol intake: current Drinks per week: 2 Substance use: never Substance use type: does not use Do You Feel Safe in your Home?: Yes Lack of Transportation: No Lack of Food: Never True Current Housing: I Have Housing Concerned About Future Housing: No Difficulty Paying Gas/Electric Bills: No Difficulty Paying for Meds: No Currently Unemployed: No Education: Decline to Answer Difficulty w/ Childcare or Family Care: No Living arrangements: with family Occupation/Education: occupation Gender identity (if verbalized by the patient): Female Sexual Orientation (if Verbalized by the Patient): Straight or Heterosexual Spiritual care concerns: No Anes - Eval Final PreProcedure Day of Procedure 04/10/25 07:05 Patient weight: obese Heart: regular rate and rhythm Lungs: clear to auscultation Airway: Mallampati scale class II Neurological: alert and oriented Last oral intake: >/= 8 hours ASA classification: II Emergent: no Anesthetic plan: proceed Anesthesia type and monitoring: general GIVS and standard monitoring Results Review: All pre-operative results and documents have been reviewed as part of the pre- operative evaluation. Informed Consent: The patient's anesthetic plan and its attendant risks and benefits were discussed with the patient/family/POA. Questions were solicited and answers provided to the satisfaction of the patient/family/POA.
[2025-04-10 07:15] LABS: BEDSIDEPREGUCG Negative (Negative)
--- NOTE | 2025-04-10 07:47 | PM.HPGS ---
History of Present Illness History of Present Illness Consent: Risks, benefits, and alternatives have been discussed and questions answered. Patient agrees to proceed with procedure. Chief complaint: Encounter for screening for malignant neoplasm of Narrative: Genet Archer is a 44 year old female here for first screening colonoscopy Review of Systems Review of Systems: All systems reviewed & are unremarkable except as noted in HPI and below PMFSH Past Medical History Medical History (Updated 04/10/25 @ 07:48 by Yuniel Talbot MD) Colon cancer screening Laceration without foreign body, right lower leg, subsequent encounter Laceration of finger Abnormal laboratory test Urinary tract infection, site not specified URI, acute Dysfunction of right eustachian tube Adverse reaction to diphtheria, tetanus, and pertussis vaccine Acute non-recurrent maxillary sinusitis Thoracolumbar back pain Surgical History Surgical History Hx of LASIK Family History Family History Father Family history of blood dyscrasia, Onset Age: 43 Social History Social History Social History: Smoking status: Former smoker Tobacco type: cigarettes Second hand tobacco smoke exposure: No Alcohol intake: current Drinks per week: 2 Substance use: never Substance use type: does not use Do You Feel Safe in your Home?: Yes Lack of Transportation: No Lack of Food: Never True Current Housing: I Have Housing Concerned About Future Housing: No Difficulty Paying Gas/Electric Bills: No Difficulty Paying for Meds: No Currently Unemployed: No Education: Decline to Answer Difficulty w/ Childcare or Family Care: No Living arrangements: with family Occupation/Education: occupation Gender identity (if verbalized by the patient): Female Sexual Orientation (if Verbalized by the Patient): Straight or Heterosexual Spiritual care concerns: No Meds Home Medications and Allergies Home Medications ?Medication ?Instructions ?Recorded ?Confirmed ?Type cholecalciferol (vitamin D3) 50 50 mcg PO DAILY 06/10/23 03/29/25 History mcg (2,000 unit) capsule omega-3 fatty acids 500 mg capsule 500 mg PO DAILY 06/10/23 03/29/25 History vitamin B complex (B 1 tablet PO DAILY 06/10/23 03/29/25 History Complex-Vitamin B12 tablet) aspirin 81 mg tablet,delayed 81 mg PO DAILY 01/01/25 03/29/25 History release (Adult Aspirin Regimen) lactobacillus combination no.4 3 3,000 mmu cells PO DAILY 03/29/25 03/29/25 History billion cell capsule (Probiotic) loratadine 10 mg tablet (Claritin) 10 mg PO DAILY 03/29/25 03/29/25 History Allergies Allergy/AdvReac Type Severity Reaction Status Date / Time Sulfa (Sulfonamide Allergy Mild RASH, Verified 04/10/25 06:45 Antibiotics) ELEVATED TEMP (104 Vital Signs Vital Signs - 24 hr 04/10/25 06:46 Temperature 98.3 F Pulse Rate 88 Respiratory Rate 18 Blood Pressure 107/74 Pulse Oximetry 99 Oxygen Delivery Room Air Exam Const: General: comfortable and no acute distress HENMT: Face/Nose/Sinus: Normal nares present Eyes: General: appearance normal, both eyes and all related structures Neck: Neck: no JVD Resp: Auscultation: clear to auscultation bilaterally Cardio: Rate: regular rate Rhythm: regular rhythm GI: Inspection: non-distended GI Palp: Yes Soft to palpation Skin: General skin exam: normal color Neuro: General: gait normal Speech: normal speech Extrem: General: normal to inspection Psych: Mental Status: mental status grossly normal Assessment and Plan Assessment and plan (1) Colon cancer screening: Code(s): Z12.11 - Encounter for screening for malignant neoplasm of colon Status: Acute Assessment and Plan: colonoscopy
[2025-04-10 08:06] VITALS: BP 102/60; PULSE 73; RESP 18; O2SAT 97
[2025-04-10 08:16] VITALS: BP 113/70; PULSE 78; RESP 20; O2SAT 100
[2025-04-10 08:26] VITALS: BP 108/70; PULSE 73; RESP 22; O2SAT 99
== END 2025-04-10 08:32 | disposition home or self-care (01) ==
PROVIDERS: Anesthesiology; PCP Family Medicine; Referring Provider Student in an Organized Health Care Education/Training Program; Visit Provider Internal Medicine Gastroenterology
PROC: 0DJD8ZZ Inspection of Lower Intestinal Tract, Via Natural or Artificial Opening Endoscopic (ICD-10-PCS; CPT 45378; principal; 2025-04-10 08:00)
DX: Z12.11 Encounter for screening for malignant neoplasm of colon (principal); K64.8 Other hemorrhoids; Z87.891 Personal history of nicotine dependence; E66.9 Obesity, unspecified; Z68.30 Body mass index [BMI] 30.0-30.9, adult
CPT/HCPCS: 45378; J2003; J2704; J7120

== ENCOUNTER 2025-09-05 14:58 | Outpatient (CLI) | payer BC, SELFPAY ==
--- NOTE | ~2025-09-05 | MM_ITS ---
EXAMINATION: MM screening angie BI w chadd HISTORY: Screening TECHNIQUE: Craniocaudal and mediolateral oblique 3-D tomosynthesis images were obtained and synthetic 2-D images were generated. CAD analysis was submitted and interpreted. COMPARISON: Comparison to multiple prior studies sequentially, with oldest reviewed study dated , 09/20/2020 BREAST PARENCHYMAL COMPOSITION: The breasts are heterogeneously dense, which may obscure small masses. FINDINGS: There is no evidence of suspicious mass, calcification, or architectural distortion to suggest malignancy in either breast. IMPRESSION: 1. No mammographic evidence of malignancy. 2. Recommend routine screening mammography in one year. BI-RADS Category 1: Negative Reviewed, dictated and finalized at location B. ERCIAL DESIGNER
--- OUTSIDE RECORDS SUMMARY | 2025-09-06 14:42 | XMS_ITS | Clinical Summary ---
Author Organization [facility] Address [address] [facility] [place] [address] Care Team Providers Care Service Attendant Cafeteria Name Role Phone Monica Love MD Primary Care Provider + Source Comments [facility],non-owned Affiliates and Associated Physician Practices is amultiple site organization consisting of ambulatory clinics and hospital sitesin [place], [place], [place] and [place]. This disclosure is being madepursuant to the Care Everywhere program and may not contain all information available regarding this patient. Last updated 18.[facility] Allergies Active Allergy Reactions Criticality Noted Date Comments Sulfa Drugs 09/24/2017 Medications * Be aware that medications may not be up to date on this document. Alwaysverify current medications with the patient. 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 Gender Identity Not on file Sexual Orientation Not on file Last Filed Vital Signs Vital Sign Reading Time Taken Comments Blood Pressure 92/60 09/24/2017 4:15 PM CHIN STRAP SEWER Pulse 73 09/24/2017 4:15 PM CHIN STRAP SEWER Temperature 36.8 C (98.2 F) 09/24/2017 4:15 PM CHIN STRAP SEWER Respiratory Rate 16 09/24/2017 4:15 PM CHIN STRAP SEWER Oxygen Saturation 98% 09/24/2017 4:15 PM CHIN STRAP SEWER Inhaled Oxygen Concentration - - Weight 70.3 kg (155 lb) 09/24/2017 4:15 PM CHIN STRAP SEWER Height 160 cm (5' 3) 09/24/2017 4:15 PM CHIN STRAP SEWER Body Mass Index 27.46 09/24/2017 4:15 PM CHIN STRAP SEWER Plan of Treatment Health Maintenance Due Date Last Done Comments COLOGUARD (AGES 45-75) - COL ON CA SCREENING 1978 COLON MONITORING 1978 COLONOSCOPY - COLON CA SCREENING 1978 CT COLONOGRAPHY - COLON CA SCREENING 1978 Colorectal Cancer Screening 1978 FIT - COLON CA SCREENING 1978 FLEX SIG - COLON CA SCREENING 1978 LIPID TESTING 1978 MAMMOGRAM 1978 HIV SCREENING 1993 HEPATITIS C SCREENING 11/24/1996 DTAP/TDAP/TD VACCINES (1 - Tdap) 1997 HEPATITIS B VACCINE (1 of 3 - 19+ 3-dose series) 1997 DEPRESSION SCREENING 11/01/2024 COVID-19 VACCINE (1 - 2023-2 5 season) 2025 INFLUENZA VACCINE (#1) 2025 ZOSTER VACCINE (1 of 2) 2028 HIB VACCINE Aged Out No longer eligi ble based on patient's age to complete this topic HPV VACCINE Aged Out No longer eligi ble based on patient's age to complete this topic MENINGOCOCCAL (Group B) VACC INE SHARED DECISION-MAKING Aged Out No longer eligibl e based on patient's age to complete this topic MENINGOCOCCAL GROUPS A/C/Y/W VACCINE Aged Out No longer eligible b ased on patient's age to complete this topic PNEUMOCOCCAL VACCINE Aged Out No long er eligible based on patient's age to complete this topic Insurance [employer] Care Teams Service Attendant Cafeteria Relationship Specialty Start Date End Date Monica Love MD [address] [place] [id number] PCP - General Family Medicine 09/24/17
--- OUTSIDE RECORDS SUMMARY | 2025-09-06 14:42 | XMS_ITS | Clinical Summary ---
Author Organization [facility] Address [address] [facility] [place] [address] Phone Care Team Providers Care Due Diligence Coordinator Name Role Phone Monica Love MD Primary Care Provider [phone] Social History Tobacco Use Types Packs/Day Years [...] of 3 - 19+ 3-dose series) 1997 Pap Smear 1999 Cervical Cancer Screening (CCS) 2008 HPV/Cotest 2008 Cologuard 2023 Colonoscopy 2023 Colorectal Cancer Screening 2023 Immunochemical Fecal Occult Blood 2023 Influenza Immunization (#1) 2025 09/07/2020, 07/19/2019, 07/19/2018, Additional history exists SARS-COV-2 Immunization ( season) 2025 10/07/2021, 02/07/2021, 01/07/2021 Respiratory Syncytial Virus (RSV) Immunization (Adult) (1 [...] patient's age to complete this topic Insurance [facility] Care Teams Due Diligence Coordinator Relationship Specialty Start Date End Date Monica Love MD [address] [facility] [address] [place] [address] PCP - General Family Medicine 08/08/21
--- OUTSIDE RECORDS SUMMARY | 2025-09-06 14:42 | XMS_ITS | Clinical Summary ---
Author Organization [address] Address [address] [place] [address] Care Team Providers Care Netting Weaver Name Role Phone Trung Harmon MD Primary Care Provider Allergies Active Allergy Reactions Criticality Noted Date Comments Sulfa Rash Medium 09/27/2023 fever Medications aspirin 81 mg chewable tablet Acti ve cholecalciferol (VITAMIN D-3) 2000 unit capsule 05/15/2019 Active Active Problems Problem Noted Date Diagnosed Date Uterine bleeding 05/31/2025 Encounters Date Type Department Care Team Description 06/11/2025 Telephone [facility] Pre Anesthesia Testing [address] [place] [address] Jesika Ford from Last 3 Months Surgical History Surgery Date Site/Laterality Comments OVARIAN [...] Sign Reading Time Taken Comments Blood Pressure 104/72 04/12/2025 5:18 PM CDT Pulse 74 04/12/2025 5:18 PM CDT Temperature 36.6 C (97.9 F) 04/12/2025 5:18 PM CDT Respiratory Rate 20 04/12/2025 5:18 PM CDT Oxygen Saturation 96% 04/12/2025 5:18 PM CDT Inhaled Oxygen Concentration - - Weight 81.2 kg (179 lb) 04/12/2025 5:18 PM CDT Height 160 cm (5' 3) 09/27/2023 5:33 PM ROLLS MILL OPERATOR Body Mass Index 31.71 09/27/2023 5:33 PM ROLLS MILL OPERATOR Plan of Treatment Health Maintenance Due Date Last Done Comments Breast Cancer Screening-Mammogram 1978 Cervical Cancer Screening 1978 Colon Cancer Screening-Colonoscopy 1978 Depression Screening 1978 Hepatitis C Screening 1978 DTaP/Tdap/Td Vaccine (1 - Tdap) 1989 Hepatitis B Screening 1996 Regular Well Visit/Exam 18-64 1996 Covid-19 Vaccine ( season) 2025 10/07/2021, 02/07/2021, 01/07/2021 Influenza Vaccine (#1) 2025 , 08/12/2022, 08/11/2021, Additional history exists HPV Vaccines Aged Out No longer eligi ble based on patient's age to complete this topic Pneumococcal vaccine <65 Aged Out No longer eligible based on patient's age to complete this topic Insurance [employer] O[employer] Member Subscriber Plan / Payer (Ef fective 2016-Present) Name:Genet Archer Relation to Subscriber:Self Name:Genet Archer Payer ID:[id number] (NAIC) Type:BC ALLIANCE Address: [facility] [id number] [place] [id number] Care Teams Netting Weaver Relationship Specialty Start Date End Date Trung Harmon MD [address] [facility] [address] [place] [phone] PCP - General Family Medicine 04/12/25
--- OUTSIDE RECORDS SUMMARY | 2025-09-06 14:43 | XMS_ITS | Data Portability ---
Author Organization [facility] Address [address] [place] [address] Care Team Providers Care Contract Assistant Name Role Phone NILDAMATTYNeldaEYN Primary Care Provider Assessment Encounter Date Assessment Date Assessment LastModified by Organization Details LastModified Time 07/24/2022 07/24/2022 Annual gynecological exam performed. Patient will come back in a year unless there are new symptoms. Not available 07/24/2022 09:43:30 07/27/2023 07/27/2023 Annual gynecological exam performed. Patient will come back in a year unless there are new symptoms. [email or web address] Not available 07/27/2023 09:35:49 08/01/2024 08/01/2024 Annual gynecological exam performed. Patient will come back in a year unless there are new symptoms. Not available 08/01/2024 09:33:59 11/03/2024 11/03/2024 Annual gynecological exam performed. Patient will come back in a year unless there are new symptoms. [email or web address] Not available 11/03/2024 14:04:13 08/15/2025 08/15/2025 Annual gynecological exam performed. Patient will come back in a year unless there are new symptoms. Not available 08/15/2025 09:27:09 Plan of Treatment Reminders Order Date Submit Date Provider Last Modified By Organization Details Last Modified Time Details Appointments None recorded. Lab 25-hydroxy vitamin D2 + 25-hydroxy vitamin D3, QN, serum or plasma 2024 025 [facility] (Lab), [address], [place], [address], 5 06:36:37 TSH, serum or plasma 2024 [facility] (Lab), [address], [place], [address], 5 06:36:37 CMP, serum or plasma 2024 [facility] (Lab), [address], [place], [address], 5 06:36:36 CBC w/ auto diff 2024 [facility] (Lab), [address], [place], [address], 5 06:36:35 lipid panel, blood 2024 [facility] (Lab), [address], [place], [address], 5 06:36:36 HbA1c (hemoglobi n A1c), blood 2024 025 [facility] (Lab), [address], [place], [address], 5 06:36:36 25-hydroxy vitamin D2 + 25-hydroxy vitamin D3, QN, serum or plasma 2023 [facility] (Lab), [address], [place], [address], 4 07:26:57 CMP, serum or plasma 2023 024 [facility] (Lab), [address], [place], [address], 4 07:26:56 CBC w/ auto diff 2023 024 [facility] (Lab), [address], [place], [address], 4 07:26:55 lipid panel, blood 2023 024 [facility] (Lab), [address], [place], [address], 4 07:26:56 HbA1c (hemoglobi n A1c), blood 2023 024 [facility] (Lab), [address], [place], [address], 4 07:26:56 TSH, serum or plasma 2023 024 [facility] (Lab), [address], [place], [address], 4 07:26:57 vitamin D, 25-hydroxy , total, serum 2022 023 [facility] (Lab), [address], [place], [address], 3 04:08:54 CMP, serum or plasma 2022 023 [facility] (Lab), [address], [place], [address], 3 04:08:52 lipid panel, blood 2022 023 [facility] (Lab), [address], [place], [address], 3 04:08:51 CBC w/ auto diff 2022 023 [facility] (Lab), [address], [place], [address], 3 04:08:53 HbA1c (hemoglobi n A1c), blood 2022 023 [facility] (Lab), [address], [place], [address], 3 04:08:54 TSH, serum or plasma 2022 023 [facility] (Lab), [address], [place], [address], 3 04:08:53 vitamin D, 25-hydroxy , total, serum 2021 022 [facility] (Lab), [address], [place], [address], 2 06:17:41 CMP, serum or plasma 2021 022 [facility] (Lab), [address], [place], [address], 2 06:17:40 HbA1c (hemoglobi n A1c), blood 2021 022 [facility] (Lab), [address], [place], [address], 2 06:17:41 lipid panel, blood 2021 022 [facility] (Lab), [address], [place], [address], 2 06:17:40 CBC w/ auto diff 2021 022 [facility] (Lab), [address], [place], [address], 2 06:17:39 TSH, serum or plasma 2021 022 [facility] (Lab), [address], [place], [address], 2 06:17:39 Referral None recorded. Procedures None recorded. Surgeries None recorded. Imaging MAMMO, screening, digital, bilateral [address] [facility], [address], [address], [place], [address], 5 10:57:55 MAMMO, screening, digital, bilateral [address] [facility], [address], [address], [place], [address], 4 13:44:32 MAMMO, screening, digital, bilateral [address] [facility], [address], [address], [place], [address], 3 12:43:39 Medication Orders None recorded. Patient TargetsNo targets recorded. Patient InstructionsNo instructions recorded. Reason for Referral None Reported. Results Created Date Observation Date Name Description Value Unit Range Abnormal Flag Note LastModifiedBy Organization Detail LastModifiedTime 07/24/20 22 07/24/2022 CBC W/DIF F WBC 8.1 10'3/ uL 3.6-10 .2 Not Available [facility] [address] [place], [address], 07/25/2022 06:17:39 07/24/20 22 07/24/2022 CBC W/DIF F RBC 4.17 10'6/ uL (based on docume nted legal sex) 4.10-5 .30 Not Available [facility] [address] [place], [address], 07/25/2022 06:17:39 07/24/20 22 07/24/2022 CBC W/DIF F HGB 13.3 g/dL (based on docume nted legal sex) 11.9-1 5.8 Not Available [facility] [address] [place], [address], 07/25/2022 06:17:39 07/24/20 22 07/24/2022 CBC W/DIF F HCT 42.0 % (based on docume nted legal sex) 37.4-4 8.3 Not Available [facility] [place], [address], 07/25/2022 06:17:39 07/24/2007/24/2022 CBC W/DIF F MCV 100.7 fL 82.0-9 9.0 high Not Available [facility] [place], [address], 07/25/2022 06:17:39 07/24/20 22 07/24/2022 CBC W/DIF F MCH 31.9 pg 27.0-3 3.0 Not Available [facility] [place], [address], 07/25/2022 06:17:39 07/24/20 22 07/24/2022 CBC W/DIF F MCHC 31.7 g/dL 32.0-3 6.0 low Not Available [facility] [place], [address], 07/25/2022 06:17:39 07/24/2007/24/2022 CBC W/DIF F RDW 12.0 % 11.0-1 5.0 Not Available [facility] [place], [address], 07/25/2022 06:17:39 07/24/2007/24/2022 CBC W/DIF F plt 288 10'3/ uL 150-45 0 Not Available [facility] [place], [address], 07/25/2022 06:17:39 07/24/2007/24/2022 CBC W/DIF F MPV 11.3 fL 9.8-12 .7 Not Available [facility] [place], [address], 07/25/2022 06:17:39 07/24/20 22 07/24/2022 CBC W/DIF F NRBC's 0.0 % 0 Not Available [facility] [place], [address], 07/25/2022 06:17:39 07/24/20 22 07/24/2022 CBC W/DIF F absolute NRBCs 0.0 10'3/ uL 0 Not Available [facility] [address] [place], [place] [address], [address], 07/25/2022 06:17:39 07/24/20 22 07/24/2022 CBC W/DIF F neutrophils 67.1 % 37.0-7 2.0 Not Available [facility] [address] [place], [place] [address], [address], 07/25/2022 06:17:39 07/24/20 22 07/24/2022 CBC W/DIF F lymphocytes 20.0 % 16.0-4 8.0 Not Available [facility] [address] [place], [place] [address], [address], 07/25/2022 06:17:39 07/24/20 22 07/24/2022 CBC W/DIF F monocytes 8.3 % 4.0-14 .0 Not Available [facility] [address] [place], [place] [address], [address], 07/25/2022 06:17:39 07/24/20 22 07/24/2022 CBC W/DIF F eosinophils 3.3 % 0.0-9. 0 Not Available [facility] [place], [address], 07/25/2022 06:17:39 07/24/20 22 07/24/2022 CBC W/DIF F basophils 1.1 % 0.0-2. 0 Not Available [facility] [address] [place], [place] [address], [place], [address], 07/25/2022 06:17:39 07/24/20 22 07/24/2022 CBC W/DIF F immature granulocytes 0.2 % no define d refere nce range Not Available [facility] [address] [place] [address], [address], 07/25/2022 06:17:39 07/24/20 22 07/24/2022 CBC W/DIF F absolute neutrophils 5.4 10'3/ uL 1.1-6. 0 Not Available [facility] [address] [place], [place] [address], [address], 07/25/2022 06:17:39 07/24/20 22 07/24/2022 CBC W/DIF F absolute lymphocytes 1.6 10'3/ uL 0.7-3. 4 Not Available [facility] [address] [place], [place] [address], [address], 07/25/2022 06:17:39 07/24/20 22 07/24/2022 CBC W/DIF F absolute monocytes 0.7 10'3/ uL 0.3-1. 0 Not Available [facility] [address] [place] [address], [address], 07/25/2022 06:17:39 07/24/20 22 07/24/2022 CBC W/DIF F absolute eosinophils 0.3 10'3/ uL 0.0-0. 6 Not Available [facility] [address] [place], [place] [address], [address], 07/25/2022 06:17:39 07/24/20 22 07/24/2022 CBC W/DIF F absolute basophils 0.1 10'3/ uL 0.0-0. 1 Not Available [facility] [address] [place], [address], 07/25/2022 06:17:39 07/24/2007/24/2022 CBC W/DIF F absolute immature granulocytes 0.0 10'3/ uL 0.00-0 .10 2021 3:41 AM: P indic ates parti al resul ts on a panel have been relea sed. Addit ional resul ts will follo w. 2021 3:41 AM: This resul t has been final verif ied. No addit ional or salvador ed resul ts are expec jayesh. Not Available [facility] [address] [place] [address], [address], 07/25/2022 06:17:39 07/24/20 22 07/24/2022 TSH, REFLE X FREE T4 TSH 1.89 uIU/m L 0.30-5 .33 Not Available [facility] [address] [place] [address], [address], 07/25/2022 06:17:39 07/24/2007/24/2022 LIPID PANEL ,AMA (LDL- CALC) total cholesterol 180 mg/dL 0-199 Not Available [facility] [address] [place], [address], 07/25/2022 06:17:40 07/24/2007/24/2022 LIPID PANEL ,AMA (LDL- CALC) triglyceride s 74 mg/dL 0.00-1 50.00 NCEP Refer ence Value s for Trigl yceri nighat: Hannah l: <150 mg/dL Borde rline High: 150 - 199 mg/dL High: 200 - 499 mg/dL Very High: >/= 500 mg/dL Not Available [facility] [address] [place], [address], 07/25/2022 06:17:40 07/24/20 22 07/24/2022 LIPID PANEL ,AMA (LDL- CALC) HDL cholesterol 70 mg/dL >40 Not Available [facility] [address] [place], [address], 07/25/2022 06:17:40 07/24/20 22 07/24/2022 LIPID PANEL ,AMA (LDL- CALC) LDL cholesterol [...] mg/dL , HDL <40 mg/dL Not Available [address] [place], [address], 07/25/2022 06:17:40 07/24/20 22 07/24/2022 LIPID PANEL ,AMA (LDL- CALC) non-HDL cholesterol 110 mg/dL no refere nce range A reaso nable goal for non-H DL sally stero l is one that is 30 mg/dL highe r than the LDL sally stero l goal. Not Available [facility] [address] [place], [address], 07/25/2022 06:17:40 07/24/20 22 07/24/2022 LIPID PANEL ,AMA (LDL- CALC) chol/HDL ratio 2.6 . 0.0-5. 0 Not Available [facility] Disease [address] [place] [address], [address], 07/25/2022 06:17:40 07/24/20 22 07/24/2022 CMP(C OMPRE HENSI VE METAB OLIC PANEL ) sodium 136 mmol/ L 133-14 6 Not Available [facility] [place], [address], 07/25/2022 06:17:40 07/24/20 22 07/24/2022 CMP(C OMPRE HENSI VE METAB OLIC PANEL ) potassium 4.4 mmol/ L 3.5-5. 1 Not Available [facility] [address] [place], [place] [address], [address], 07/25/2022 06:17:40 07/24/20 22 07/24/2022 CMP(C OMPRE HENSI VE METAB OLIC PANEL ) chloride 101 mmol/ L 98-107 Not Available [facility] [address] [place], [place] [address], [address], 07/25/2022 06:17:40 07/24/20 22 07/24/2022 CMP(C OMPRE HENSI VE METAB OLIC PANEL ) carbon dioxide 28 mmol/ L 21-31 Not Available [facility] [address] [place], [place] [address], [address], 07/25/2022 06:17:40 07/24/20 22 07/24/2022 CMP(C OMPRE HENSI VE METAB OLIC PANEL ) anion gap 7 mmol/ L 4-13 Not Available [facility] [address] [place], [place] [address], [address], 07/25/2022 06:17:40 07/24/20 22 07/24/2022 CMP(C OMPRE HENSI VE METAB OLIC PANEL ) blood urea nitrogen 10 mg/dL 7-25 Not Available [facility] [address] [place], [place] [address], [address], 07/25/2022 06:17:40 07/24/20 22 07/24/2022 CMP(C OMPRE HENSI VE METAB OLIC PANEL ) creatinine 0.88 mg/dL 0.60-1 .30 Not Available [facility] [place], [address], 07/25/2022 06:17:40 07/24/20 22 07/24/2022 CMP(C OMPRE HENSI VE METAB OLIC PANEL ) egfrcr (CKD-epi 2020) 84 mL/mi n/1.7 3_m2 >=60 Not Available [facility] [address] [place], [place] [address], [address], 07/25/2022 06:17:40 07/24/20 22 07/24/2022 CMP(C OMPRE HENSI VE METAB OLIC PANEL ) calcium 9.5 mg/dL 8.3-10 .5 Not Available [facility] [address] [place], [place] [address], [address], 07/25/2022 06:17:40 07/24/20 22 07/24/2022 CMP(C OMPRE HENSI VE METAB OLIC PANEL ) glucose 81 mg/dL 70-100 Not Available [facility] [address] [place] [address], [address], 07/25/2022 06:17:40 07/24/2007/24/2022 CMP(C OMPRE HENSI VE METAB OLIC PANEL ) protein, total 7.4 g/dL 6.4-8. 3 Not Available [facility] [address] [place], [place] [address], [address], 07/25/2022 06:17:40 07/24/20 22 07/24/2022 CMP(C OMPRE HENSI VE METAB OLIC PANEL ) albumin 4.5 g/dL 3.5-5. 0 Not Available [facility] [address] [place], [place] [address], [address], 07/25/2022 06:17:40 07/24/20 22 07/24/2022 CMP(C OMPRE HENSI VE METAB OLIC PANEL ) ALT 10 units /L 9-43 Not Available [facility] [address] [place] [address], [address], 07/25/2022 06:17:40 07/24/20 22 07/24/2022 CMP(C OMPRE HENSI VE METAB OLIC PANEL ) alkaline phosphatase 58 units /L 34-104 Not Available [facility] [address] [place] [address], [address], 07/25/2022 06:17:40 07/24/20 22 07/24/2022 CMP(C OMPRE HENSI VE METAB OLIC PANEL ) AST 15 units /L 13-39 Not Available [facility] [address] [place] [address], [address], 07/25/2022 06:17:40 07/24/20 22 07/24/2022 CMP(C OMPRE HENSI VE METAB OLIC PANEL ) bilirubin, total 0.6 mg/dL 0.2-1. 2 Not Available [facility] [address] [place] [address], [address], 07/25/2022 06:17:40 07/24/20 22 07/24/2022 VITAM IN D, 25-OH (TOTA L D2/D3 ) vitamin D, 25-hydroxy, total 30.7 NG/mL 30.0-1 00.0 Sugge stive of Defic iency : <20 ng/mL Sugge stive of Insuf ficie ncy: 20-29 ng/mL Sugge stive of Suffi cienc y: 30-10 0 ng/mL Sugge stive of Toxic ity: >150 ng/mL Not Available [facility] [address] [place], [address], 07/25/2022 06:17:41 07/24/2007/24/2022 HEMOG LOBIN A1C hemoglobin [...] >8.0% Actio n sugge sted Not Available [facility] [address] [place], [address], 07/25/2022 06:17:41 07/24/20 22 07/24/2022 IMAGE GUIDE D PAP AND HPV REGAR DLESS image guided Pap, HPV regardless of Pap result SEE RESULT S BELOW CASE REPOR T: Cytol ogy Gynec ologi ezra Repor t Case: [id number] Autho joe g Provi nataly: Jair Gandhi Colle cted: 07/24 1603 [employer] Order ing Locat ion: [place] [facility] Recei samuel: 07/25 0159 First Scree n: Trang [...] as clini chao warra nted. Not Available [facility] [address], [place], [address], 07/31/2022 12:14:36 07/27/20 23 07/27/2023 LIPID PANEL ,AMA (LDL- CALC) total cholesterol 174 mg/dL 0-199 Not Available [facility] (Lab) [address] [place], [address], 07/28/2023 04:08:51 07/27/20 23 07/27/2023 LIPID PANEL ,AMA (LDL- CALC) triglyceride s 106 mg/dL 0.00-1 50.00 NCEP Refer ence Value s for Trigl yceri nighat: Hannah l: <150 mg/dL Borde rline High: 150 - 199 mg/dL High: 200 - 499 mg/dL Very High: >/= 500 mg/dL Not Available [facility] (Lab) [address] [place], [address], 07/28/2023 04:08:51 07/27/20 23 07/27/2023 LIPID PANEL ,AMA (LDL- CALC) HDL cholesterol 58 mg/dL >40 Not Available [facility] (Lab) [address] [place], [address], 07/28/2023 04:08:51 07/27/20 23 07/27/2023 LIPID PANEL ,AMA (LDL- CALC) LDL cholesterol [...] mg/dL , HDL <40 mg/dL Not Available [facility] (Lab) [address] [place], [address], 07/28/2023 04:08:51 07/27/2007/27/2023 LIPID PANEL ,AMA (LDL- CALC) non-HDL cholesterol 116 mg/dL no refere nce range A reaso nable goal for non-H DL sally stero l is one that is 30 mg/dL highe r than the LDL sally stero l goal. Not Available [facility] (Lab) [address], [place], [address], 07/28/2023 04:08:51 07/27/2007/27/2023 LIPID PANEL ,AMA (LDL- CALC) chol/HDL ratio 3.0 . 0.0-5. 0 On February 23, 2023, [facility] labor atori lam salvador ed the equat ion for calcu latin g estim ated low-d ensit y lipop rotei n-cho leste rol (LDL- C) from the Fried sara equat ion to the Dominique michele/Hop lamar equat ion. This new equat ion is only valid for lipid panel s with trigl yceri nighat < 400 mg/dL . Tayei lam have demon straricky ed that this new equat ion will impro ve the accur acy of LDL-C , espec ially in scena cha when LDL-C dariusz ntrat ions are relat ively low (< 100 mg/dL ), trigl yceri nighat are eleva jayesh, or patie nt is non-f astin g. Refer ences : - Dominique bautista, Alf Rivera, Cecilio Samaniego , [facility] leeanne maki, Broderick Cabello, Broderick jeffries, [facility] , and Jared Batres . 2013. Comp ariso n of a Novel Metho d vs the Fried sara Equat ion for Estim ating Low-D ensit y Lipop rotei n Sally stero l Level s from the Stand lela Lipid Profi le. PAUL: The Journ al of the Ameri can Medic al Assoc iatio n 310 (19): 2060- . - Parker carrillo V, Aleja Mcmahon, Elke Lutz, Ryan Tatum, Florentino olivarez R, Isra carrillo E, Thien dawn RS, Batres SR, Dominique bautista SS. Fast ing Versu s Nonfa sting and Low-D ensit y Lipop rotei n Sally stero l Accur acy. Circu latfranklin n. 2017Nov 02;137 (1):1 0-19. Not Available [facility] (Lab) [address] [facility], [place], [address], 07/28/2023 04:08:51 07/27/20 23 07/27/2023 CMP(C OMPRE HENSI VE METAB OLIC PANEL ) sodium 139 mmol/ L 133-14 6 Not Available [facility] (Lab) [address] [facility], [place], [address], 07/28/2023 04:08:52 07/27/20 23 07/27/2023 CMP(C OMPRE HENSI VE METAB OLIC PANEL ) potassium 4.2 mmol/ L 3.5-5. 1 Not Available [facility] (Lab) [address] [facility], [place], [address], 07/28/2023 04:08:52 07/27/20 23 07/27/2023 CMP(C OMPRE HENSI VE METAB OLIC PANEL ) chloride 103 mmol/ L 98-107 Not Available [facility] (Lab) [address] [place], [address], 07/28/2023 04:08:52 07/27/20 23 07/27/2023 CMP(C OMPRE HENSI VE METAB OLIC PANEL ) carbon dioxide 26 mmol/ L 21-31 Not Available [facility] (Lab) [address] [place], [address], 07/28/2023 04:08:52 07/27/20 23 07/27/2023 CMP(C OMPRE HENSI VE METAB OLIC PANEL ) anion gap 10 mmol/ L 4-13 Not Available [facility] (Lab) [address] [place], [address], 07/28/2023 04:08:52 07/27/20 23 07/27/2023 CMP(C OMPRE HENSI VE METAB OLIC PANEL ) blood urea nitrogen 9 mg/dL 7-25 Not Available [facility] (Lab) [address], [place], [address], 07/28/2023 04:08:52 07/27/20 23 07/27/2023 CMP(C OMPRE HENSI VE METAB OLIC PANEL ) creatinine 0.88 mg/dL 0.60-1 .30 Not Available [facility] (Lab) [address], [place], [address], 07/28/2023 04:08:52 07/27/20 23 07/27/2023 CMP(C OMPRE HENSI VE METAB OLIC PANEL ) egfrcr (CKD-epi 2020) 83 mL/mi n/1.7 3_m2 >=60 Not Available [facility] (Lab) [address], [place], [address], 07/28/2023 04:08:52 07/27/20 23 07/27/2023 CMP(C OMPRE HENSI VE METAB OLIC PANEL ) calcium 9.1 mg/dL 8.3-10 .5 Not Available [facility] (Lab) [address], [place], [address], 07/28/2023 04:08:52 07/27/20 23 07/27/2023 CMP(C OMPRE HENSI VE METAB OLIC PANEL ) glucose 86 mg/dL 70-100 Not Available [facility] (Lab) [address], [place], [address], 07/28/2023 04:08:52 07/27/20 23 07/27/2023 CMP(C OMPRE HENSI VE METAB OLIC PANEL ) protein, total 7.1 g/dL 6.4-8. 3 Not Available [facility] (Lab) [address], [place], [address], 07/28/2023 04:08:52 09/26/20 23 07/27/2023 CMP(C OMPRE HENSI VE METAB OLIC PANEL ) albumin 4.1 g/dL 3.5-5. 0 Not Available [facility] (Lab) [address] [facility], [place], [address], 07/28/2023 04:08:52 07/27/20 23 07/27/2023 CMP(C OMPRE HENSI VE METAB OLIC PANEL ) ALT 6 units /L 9-43 low Not Available [facility] (Lab) [address] [facility], [place], [address], 07/28/2023 04:08:52 07/27/20 23 07/27/2023 CMP(C OMPRE HENSI VE METAB OLIC PANEL ) alkaline phosphatase 52 units /L 34-104 Not Available [facility] (Lab) [address] [facility], [place], [address], 07/28/2023 04:08:52 07/27/20 23 07/27/2023 CMP(C OMPRE HENSI VE METAB OLIC PANEL ) AST 12 units /L 13-39 low Not Available [facility] (Lab) [address] [facility], [place], [address], 07/28/2023 04:08:52 07/27/20 23 07/27/2023 CMP(C OMPRE HENSI VE METAB OLIC PANEL ) bilirubin, total 0.4 mg/dL 0.2-1. 2 Not Available [facility] (Lab) [address] [facility], [place], [address], 07/28/2023 04:08:52 07/27/20 23 07/27/2023 TSH, REFLE X FREE T4 TSH 1.84 uIU/m L 0.30-5 .33 Not Available [facility] (Lab) [address] [facility], [place], [address], 07/28/2023 04:08:53 07/27/20 23 07/27/2023 CBC W/DIF F WBC 7.4 10'3/ uL 3.6-10 .2 Not Available [facility] (Lab) [address], [place], [address], 07/28/2023 04:08:53 07/27/20 23 07/27/2023 CBC W/DIF F RBC 4.00 10'6/ uL (based on docume nted legal sex) 4.10-5 .30 low Not Available [facility] (Lab) [address], [place], [address], 07/28/2023 04:08:53 07/27/20 23 07/27/2023 CBC W/DIF F HGB 12.8 g/dL (based on docume nted legal sex) 11.9-1 5.8 Not Available [facility] (Lab) [address], [place], [address], 07/28/2023 04:08:53 07/27/20 23 07/27/2023 CBC W/DIF F HCT 40.2 % (based on docume nted legal sex) 37.4-4 8.3 Not Available [facility] (Lab) [address], [place], [address], 07/28/2023 04:08:53 07/27/20 23 07/27/2023 CBC W/DIF F MCV 100.5 fL 82.0-9 9.0 high Not Available [facility] (Lab) [address], [place], [address], 07/28/2023 04:08:53 07/27/20 23 07/27/2023 CBC W/DIF F MCH 32.0 pg 27.0-3 3.0 Not Available [facility] (Lab) [address], [place], [address], 07/28/2023 04:08:53 07/27/20 23 07/27/2023 CBC W/DIF F MCHC 31.8 g/dL 32.0-3 6.0 low Not Available [facility] (Lab) [address], [place], [address], 07/28/2023 04:08:53 07/27/20 23 07/27/2023 CBC W/DIF F RDW 12.4 % 11.0-1 5.0 Not Available [facility] (Lab) [address], [place], [address], 07/28/2023 04:08:53 07/27/20 23 07/27/2023 CBC W/DIF F plt 276 10'3/ uL 150-45 0 Not Available [facility] (Lab) [address], [place], [address], 07/28/2023 04:08:53 07/27/20 23 07/27/2023 CBC W/DIF F MPV 11.3 fL 9.8-12 .7 Not Available [facility] (Lab) [address], [place], [address], 07/28/2023 04:08:53 07/27/20 23 07/27/2023 CBC W/DIF F NRBC's 0.0 % 0 Not Available [facility] (Lab) [address], [place], [address], 07/28/2023 04:08:53 07/27/20 23 07/27/2023 CBC W/DIF F absolute NRBCs 0.0 10'3/ uL 0 Not Available [facility] (Lab) [address], [place], [address], 07/28/2023 04:08:53 07/27/20 23 07/27/2023 CBC W/DIF F neutrophils 64.1 % 37.0-7 2.0 Not Available [facility] (Lab) [address], [place], [address], 07/28/2023 04:08:53 07/27/20 23 07/27/2023 CBC W/DIF F lymphocytes 23.6 % 16.0-4 8.0 Not Available [facility] (Lab) [address] [facility], [place], [address], 07/28/2023 04:08:53 07/27/20 23 07/27/2023 CBC W/DIF F monocytes 8.2 % 4.0-14 .0 Not Available [facility] (Lab) [address] [facility], [place], [address], 07/28/2023 04:08:53 07/27/20 23 07/27/2023 CBC W/DIF F eosinophils 2.8 % 0.0-9. 0 Not Available [facility] (Lab) [address] [facility], [place], [address], 07/28/2023 04:08:53 07/27/20 23 07/27/2023 CBC W/DIF F basophils 0.9 % 0.0-2. 0 Not Available [facility] (Lab) [address] [facility], [place], [address], 07/28/2023 04:08:53 07/27/20 23 07/27/2023 CBC W/DIF F immature granulocytes 0.4 % no define d refere nce range Not Available [facility] (Lab) [address] [facility], [place], [address], 07/28/2023 04:08:53 07/27/20 23 07/27/2023 CBC W/DIF F absolute neutrophils 4.8 10'3/ uL 1.1-6. 0 Not Available [facility] (Lab) [address] [facility], [place], [address], 07/28/2023 04:08:53 07/27/20 23 07/27/2023 CBC W/DIF F absolute lymphocytes 1.8 10'3/ uL 0.7-3. 4 Not Available [facility] (Lab) [address] [place], [address], 07/28/2023 04:08:53 07/27/20 23 07/27/2023 CBC W/DIF F absolute monocytes 0.6 10'3/ uL 0.3-1. 0 Not Available [facility] (Lab) [address] [facility], [place], [address], 07/28/2023 04:08:53 07/27/20 23 07/27/2023 CBC W/DIF F absolute eosinophils 0.2 10'3/ uL 0.0-0. 6 Not Available [facility] (Lab) [address] [facility], [place], [address], 07/28/2023 04:08:53 07/27/20 23 07/27/2023 CBC W/DIF F absolute basophils 0.1 10'3/ uL 0.0-0. 1 Not Available [facility] (Lab) [address] [facility], [place], [address], 07/28/2023 04:08:53 07/27/20 23 07/27/2023 CBC W/DIF [...] resul ts are expec jayesh. Not Available [facility] (Lab) [address] [facility], [place], [address], 07/28/2023 04:08:53 07/27/20 23 07/27/2023 VITAM IN D, 25-OH (TOTA L D2/D3 ) vitamin D, 25-hydroxy, total 31.1 NG/mL 30.0-1 00.0 Sugge stive of Defic iency : <20 ng/mL Sugge stive of Insuf ficie ncy: 20-29 ng/mL Sugge stive of Suffi cienc y: 30-10 0 ng/mL Sugge stive of Toxic ity: >150 ng/mL Not Available [facility] (Lab) [address], [place], [address], 07/28/2023 04:08:54 07/27/20 23 07/27/2023 HEMOG LOBIN [...] >8.0% Actio n sugge sted Not Available [facility] (Lab) [address] [facility], [place], [address], 07/28/2023 04:08:54 07/27/20 23 07/27/2023 IMAGE GUIDE D PAP AND HPV REGAR DLESS image guided Pap, HPV regardless of Pap result SEE RESULT S BELOW CASE REPOR T: Cytol ogy Gynec ologi ezra Repor t Case: [id number] Autho joe harris Provi nataly: Jair Gandhi Colle cted: 07/27 1519 METAL [employer] Order ing Locat ion: [place] [facility] [...] of bacte rial vagin osis. Elect fidel sousa d by Fredrick Romero MD on 2022 [...] ezra and/o r histo rical findi ngs, fur er inves tigat ion is recom anup d, as clini chao vargas nted. Not Available [facility] (Lab) [address], [place], [address], 08/02/2023 15:30:14 08/01/20 24 08/01/2024 CBC W/DIF F WBC 7.0 10'3/ uL 3.5-10 .5 Not Available [facility] (Lab) [address], [place], [address], 08/02/2024 07:26:55 08/01/20 24 08/01/2024 CBC W/DIF F RBC 4.02 10'6/ uL (based on docume nted legal sex) 3.80-5 .20 Not Available [facility] (Lab) [address], [place], [address], 08/02/2024 07:26:55 08/01/20 24 08/01/2024 CBC W/DIF F HGB 13.2 g/dL (based on docume nted legal sex) 11.6-1 5.4 Not Available [facility] (Lab) [address], [place], [address], 08/02/2024 07:26:55 08/01/20 24 08/01/2024 CBC W/DIF F HCT 39.8 % (based on docume nted legal sex) 34.0-4 5.0 Not Available [facility] (Lab) [address], [place], [address], 08/02/2024 07:26:55 08/01/20 24 08/01/2024 CBC W/DIF F MCV 99.0 fL 80.0-9 9.0 Not Available [facility] (Lab) [address], [place], [address], 08/02/2024 07:26:55 08/01/20 24 08/01/2024 CBC W/DIF F MCH 32.8 pg 27.0-3 4.0 Not Available [facility] (Lab) [address], [place], [address], 08/02/2024 07:26:55 08/01/20 24 08/01/2024 CBC W/DIF F MCHC 33.2 g/dL 32.0-3 5.5 Not Available [facility] (Lab) [address], [place], [address], 08/02/2024 07:26:55 08/01/20 24 08/01/2024 CBC W/DIF F RDW 11.9 % 11.0-1 5.0 Not Available [facility] (Lab) [address], [place], [address], 08/02/2024 07:26:55 08/01/20 24 08/01/2024 CBC W/DIF F plt 270 10'3/ uL 150-40 0 Not Available [facility] (Lab) [address], [place], [address], 08/02/2024 07:26:55 08/01/20 24 08/01/2024 CBC W/DIF F MPV 11.2 fL 8.8-12 .1 Not Available [facility] (Lab) [address], [place], [address], 08/02/2024 07:26:55 08/01/20 24 08/01/2024 CBC W/DIF F NRBC's 0.0 % 0.0 Not Available [facility] (Lab) [address], [place], [address], 08/02/2024 07:26:55 08/01/20 24 08/01/2024 CBC W/DIF F absolute NRBCs 0.0 10'3/ uL no refere nce range establ ished Not Available [facility] (Lab) [address], [place], [address], 08/02/2024 07:26:55 08/01/20 24 08/01/2024 CBC W/DIF F neutrophils 60.6 % 34.0-7 3.0 Not Available [facility] (Lab) [address], [place], [address], 08/02/2024 07:26:55 08/01/20 24 08/01/2024 CBC W/DIF F lymphocytes 27.0 % 15.0-5 0.0 Not Available [facility] (Lab) [address] [facility], [place], [address], 08/02/2024 07:26:55 08/01/20 24 08/01/2024 CBC W/DIF F monocytes 8.9 % 1.0-15 .0 Not Available [facility] (Lab) [address] [facility], [place], [address], 08/02/2024 07:26:55 08/01/20 24 08/01/2024 CBC W/DIF F eosinophils 2.4 % 0.0-8. 0 Not Available [facility] (Lab) [address] [facility], [place], [address], 08/02/2024 07:26:55 08/01/20 24 08/01/2024 CBC W/DIF F basophils 1.0 % 0.0-2. 0 Not Available [facility] (Lab) [address] [facility], [place], [address], 08/02/2024 07:26:55 08/01/20 24 08/01/2024 CBC W/DIF F immature granulocytes 0.1 % no define d refere nce range Not Available [facility] (Lab) [address], [place], [address], 08/02/2024 07:26:55 08/01/20 24 08/01/2024 CBC W/DIF F absolute neutrophils 4.2 10'3/ uL 1.5-8. 0 Not Available [facility] (Lab) [address] [facility], [place], [address], 08/02/2024 07:26:55 08/01/20 24 08/01/2024 CBC W/DIF F absolute lymphocytes 1.9 10'3/ uL 1.0-4. 0 Not Available [facility] (Lab) [address] [facility], [place], [address], 08/02/2024 07:26:55 08/01/20 24 08/01/2024 CBC W/DIF F absolute monocytes 0.6 10'3/ uL 0.2-1. 0 Not Available [facility] (Lab) [address] [facility], [place], [address], 08/02/2024 07:26:55 08/01/20 24 08/01/2024 CBC W/DIF F absolute eosinophils 0.2 10'3/ uL 0.0-0. 6 Not Available [facility] (Lab) [address], [place], [address], 08/02/2024 07:26:55 08/01/20 24 08/01/2024 CBC W/DIF F absolute basophils 0.1 10'3/ uL 0.0-0. 3 Not Available [facility] (Lab) [address], [place], [address], 08/02/2024 07:26:55 08/01/20 24 08/01/2024 CBC W/DIF F absolute immature granulocytes 0.0 10'3/ uL 0.00-0 .10 2023 5:26 AM: P indic ates parti al resul ts on a panel have been relea sed. Addit ional resul ts will follo w. 2023 5:26 AM: This resul t has been final verif ied. No addit ional or salvador ed resul ts are expec jayesh. Not Available [facility] (Lab) [address], [place], [address], 08/02/2024 07:26:55 08/01/20 24 08/01/2024 HEMOG LOBIN A1C hemoglobin A1C 5.5 % 0-5.6 The Ameri can Diabe saumya Assoc iatio n recom mends that a prima ry goal of thernelda acosta be a HBA1C of < 7% and that physi cians joanneul d reeva luate the treat ment regim en in patie nts with HBA1C value s consi stent ly > 8%. <5.7% Hannah l 5.7 - 6.4% Incre ased risk for diabe saumya >=6.5 % Diagn ostic of diabe saumya <7.0% Goal of thera py >8.0% Actio n sugge sted Not Available [facility] (Lab) [address] [place], [address], 08/02/2024 07:26:56 08/01/20 24 08/01/2024 LIPID PANEL ,AMA (LDL- CALC) total cholesterol 181 mg/dL 0-199 Not Available [facility] (Lab) [address] [place], [address], 08/02/2024 07:26:56 08/01/20 24 08/01/2024 LIPID PANEL ,AMA (LDL- CALC) triglyceride s 101 mg/dL 0-150 NCEP Refer ence Value s for Trigl yceri nighat: Hannah l: <150 mg/dL Borde rline High: 150 - 199 mg/dL High: 200 - 499 mg/dL Very High: >/= 500 mg/dL Not Available [facility] (Lab) [address] [place], [address], 08/02/2024 07:26:56 08/01/20 24 08/01/2024 LIPID PANEL ,AMA (LDL- CALC) HDL cholesterol 61 mg/dL >40 Not Available [facility] (Lab) [address] [place], [address], 08/02/2024 07:26:56 08/01/20 24 08/01/2024 LIPID PANEL [...] mg/dL , HDL <40 mg/dL Not Available [facility] (Lab) [address], [place], [address], 08/02/2024 07:26:56 08/01/20 24 08/01/2024 LIPID PANEL ,AMA (LDL- CALC) non-HDL cholesterol 120 mg/dL no refere nce range A reaso nable goal for non-H DL sally stero l is one that is 30 mg/dL highe r than the LDL sally stero l goal. Not Available [facility] (Lab) [address], [place], [address], 08/02/2024 07:26:56 08/01/20 24 08/01/2024 LIPID PANEL ,AMA (LDL- CALC) chol/HDL ratio 3.0 . 0.0-5. 0 On February 23, 2023, [facility] labor atori es salvador ed the equat ion for calcu latin g estim ated low-d ensit y lipop rotei n-cho leste rol (LDL- C) from the Fried sara equat ion to the Dominique michele/Aishwarya newton equat ion. This new equat ion is only valid for lipid panel s with trigl yceri nighat < 400 mg/dL . Studi es have demon strat ed that this new equat [...] Level s from the Stand lela Lipid Phillip winston. PAUL: The Journ al of the Ameri can Medic al Assoc iatio n 310 (20): 2060- . - Parker carrillo V, Aleja J, Elke carrillo A, Ryan M, Florentino olivarez R, Isra carrillo E, Thien dawn RS, Medardo SR, Dominique n SS. Fast ing Versu s Nonfa sting and Low-D ensit y Lipop rotei n Sally stero l Accur acy. Circu latio n. 2017Nov 02;137 (1):1 0-19. Not Available [facility] (Lab) [address], [place], [address], 08/02/2024 07:26:56 08/01/20 24 08/01/2024 CMP(C OMPRE HENSI VE METAB OLIC PANEL ) sodium 140 mmol/ L 133-14 6 Not Available [facility] (Lab) [address] [place], [address], 08/02/2024 07:26:56 08/01/20 24 08/01/2024 CMP(C OMPRE HENSI VE METAB OLIC PANEL ) potassium 4.2 mmol/ L 3.5-5. 1 Not Available [facility] (Lab) [address] [place], [address], 08/02/2024 07:26:56 08/01/20 24 08/01/2024 CMP(C OMPRE HENSI VE METAB OLIC PANEL ) chloride 103 mmol/ L 98-107 Not Available [facility] (Lab) [address] [place], [address], 08/02/2024 07:26:56 08/01/20 24 08/01/2024 CMP(C OMPRE HENSI VE METAB OLIC PANEL ) carbon dioxide 28 mmol/ L 21-31 Not Available [facility] (Lab) [address] [place], [address], 08/02/2024 07:26:56 08/01/20 24 08/01/2024 CMP(C OMPRE HENSI VE METAB OLIC PANEL ) anion gap 9 mmol/ L 4-13 Not Available [facility] (Lab) [address] [facility], [place], [address], 08/02/2024 07:26:56 08/01/20 24 08/01/2024 CMP(C OMPRE HENSI VE METAB OLIC PANEL ) blood urea nitrogen 13 mg/dL 7-25 Not Available [facility] (Lab) [address], [place], [address], 08/02/2024 07:26:56 08/01/2008/01/2024 CMP(C OMPRE HENSI VE METAB OLIC PANEL ) creatinine 0.91 mg/dL 0.60-1 .30 Not Available [facility] (Lab) [address], [place], [address], 08/02/2024 07:26:56 08/01/20 24 08/01/2024 CMP(C OMPRE HENSI VE METAB OLIC PANEL ) egfrcr (CKD-epi 2020) 79 mL/mi n/1.7 3_m2 >=60 Not Available [facility] (Lab) [address], [place], [address], 08/02/2024 07:26:56 08/01/20 24 08/01/2024 CMP(C OMPRE HENSI VE METAB OLIC PANEL ) calcium 9.3 mg/dL 8.3-10 .5 Not Available [facility] (Lab) [address], [place], [address], 08/02/2024 07:26:56 08/01/20 24 08/01/2024 CMP(C OMPRE HENSI VE METAB OLIC PANEL ) glucose 82 mg/dL 70-100 Not Available [facility] (Lab) [address] [facility], [place], [address], 08/02/2024 07:26:56 08/01/20 24 08/01/2024 CMP(C OMPRE HENSI VE METAB OLIC PANEL ) protein, total 7.3 g/dL 6.4-8. 3 Not Available [facility] (Lab) [address] [facility], [place], [address], 08/02/2024 07:26:56 08/01/20 24 08/01/2024 CMP(C OMPRE HENSI VE METAB OLIC PANEL ) albumin 4.4 g/dL 3.5-5. 0 Not Available [facility] (Lab) [address] [facility], [place], [address], 08/02/2024 07:26:56 08/01/20 24 08/01/2024 CMP(C OMPRE HENSI VE METAB OLIC PANEL ) ALT 11 units /L 9-43 Not Available [facility] (Lab) [address] [facility], [place], [address], 08/02/2024 07:26:56 08/01/20 24 08/01/2024 CMP(C OMPRE HENSI VE METAB OLIC PANEL ) alkaline phosphatase 51 units /L 34-104 Not Available [facility] (Lab) [address], [place], [address], 08/02/2024 07:26:56 08/01/20 24 08/01/2024 CMP(C OMPRE HENSI VE METAB OLIC PANEL ) AST 15 units /L 13-39 Not Available [facility] (Lab) [address] [facility], [place], [address], 08/02/2024 07:26:56 08/01/20 24 08/01/2024 CMP(C OMPRE HENSI VE METAB OLIC PANEL ) bilirubin, total 0.5 mg/dL 0.2-1. 2 Not Available [facility] (Lab) [address] [facility], [place], [address], 08/02/2024 07:26:56 08/01/20 24 08/01/2024 TSH, REFLE X FREE T4 TSH 1.93 uIU/m L 0.30-5 .33 Not Available [facility] (Lab) [address], [place], [address], 08/02/2024 07:26:57 08/01/20 24 08/01/2024 VITAM IN D, 25-OH (TOTA L D2/D3 ) vitamin D, 25-hydroxy, total 38.4 NG/mL 30.0-1 00.0 Sugge stive of Defic iency : <20 ng/mL Sugge stive of Insuf ficie ncy: 20-29 ng/mL Sugge stive of Suffi cienc y: 30-10 0 ng/mL Sugge stive of Toxic ity: >150 ng/mL Not Available [facility] (Lab) [address], [place], [address], 08/02/2024 07:26:57 08/01/20 24 08/01/2024 IMAGE GUIDE D PAP AND HPV REGAR DLESS image guided Pap, HPV regardless of Pap result SEE RESULT S BELOW CASE REPOR T: Cytol ogy Gynec ologi ezra Repor t Case: [id number] Autho rilurdesn g Provi nataly: Joshua Edmond MD Colle [...] for Squam ous Intra epith elial Lesio nSuzanna Endom etria l cells prese nt in a woman over 45 years of age. Elect fidel sousa d by Chad Salvador MD on 2023 at [...] ause, may be assoc iated with khari n endom etriu m, hormo nal alter ation s and less commo nly, endom etria l/[place] rine sunny langs. Clini ezra cherie bautista is walt acosta. Not Available [facility] (Lab) [address], [place], [address], 08/09/2024 14:16:31 11/03/19 25 11/03/2024 IMAGE GUIDE D PAP AND HPV REGAR DLESS image guided Pap, HPV regardless of Pap result SEE RESULT S BELOW CASE REPOR T: Cytol ogy Gynec ologi ezra Repor t Case: [id number] Autho joe harris Provi nataly: Joshua Edmond MD Colle cted: [...] OSIS: Negat verna for Intra epith elial Lesfranklin bautista or Osvaldo gutierrez (NIL) . Elect fidel sousa d by Laurie faust, CT on 2024 at 1244 EXECUTIVE SALES ASSISTANT ----- ----- ----- ----- ----- ----- ----- [...] lesio n and sampl ing techn ique. Zakcery nued regul ar scree gabi is the best metho d of cance r preve ntion . If repor jayesh cytol ogic findi ng do not corre late with physi ezra and/o r histo rical findi ngs, furth er inves tigat ion is recom anup d, as clini chao vargas nted. Not Available [facility] (Lab) [address] [facility], [place], [address], 11/11/2024 13:49:49 08/15/2008/15/2025 CBC W/DIF F WBC 7.1 10'3/ uL 3.5-10 .5 Not Available [facility] (Lab) [address] [place], [address], 08/16/2025 06:36:35 08/15/2008/15/2025 CBC W/DIF F RBC 4.13 10'6/ uL (based on docume nted legal sex) 3.80-5 .20 Not Available [facility] (Lab) [address] [facility], [place], [address], 08/16/2025 06:36:35 08/15/2008/15/2025 CBC W/DIF F HGB 12.8 g/dL (based on docume nted legal sex) 11.6-1 5.4 Not Available [facility] (Lab) [address] [facility], [place], [address], 08/16/2025 06:36:35 08/15/20 25 08/15/2025 CBC W/DIF F HCT 41.4 % (based on docume nted legal sex) 34.0-4 5.0 Not Available [facility] (Lab) [address] [facility], [place], [address], 08/16/2025 06:36:35 08/15/2008/15/2025 CBC W/DIF F MCV 100.2 fL 80.0-9 9.0 high Not Available [facility] (Lab) [address] [facility], [place], [address], 08/16/2025 06:36:35 08/15/20 25 08/15/2025 CBC W/DIF F MCH 31.0 pg 27.0-3 4.0 Not Available [facility] (Lab) [address] [facility], [place], [address], 08/16/2025 06:36:35 08/15/20 25 08/15/2025 CBC W/DIF F MCHC 30.9 g/dL 32.0-3 5.5 low Not Available [facility] (Lab) [address] [facility], [place], [address], 08/16/2025 06:36:35 08/15/20 25 08/15/2025 CBC W/DIF F RDW 12.2 % 11.0-1 5.0 Not Available [facility] (Lab) [address] [facility], [place], [address], 08/16/2025 06:36:35 08/15/20 25 08/15/2025 CBC W/DIF F plt 278 10'3/ uL 150-40 0 Not Available [facility] (Lab) [address] [place], [address], 08/16/2025 06:36:35 08/15/20 25 08/15/2025 CBC W/DIF F MPV 10.8 fL 8.8-12 .1 Not Available [facility] (Lab) [address] [facility], [place], [address], 08/16/2025 06:36:35 08/15/20 25 08/15/2025 CBC W/DIF F NRBC's 0.0 % 0.0 Not Available [facility] (Lab) [address] [facility], [place], [address], 08/16/2025 06:36:35 08/15/20 25 08/15/2025 CBC W/DIF F absolute NRBCs 0.0 10'3/ uL no refere nce range establ ished Not Available [facility] (Lab) [address] [facility], [place], [address], 08/16/2025 06:36:35 08/15/20 25 08/15/2025 CBC W/DIF F neutrophils 64.5 % 34.0-7 3.0 Not Available [facility] (Lab) [address] [facility], [place], [address], 08/16/2025 06:36:35 08/15/20 25 08/15/2025 CBC W/DIF F lymphocytes 22.6 % 15.0-5 0.0 Not Available [facility] (Lab) [address] [facility], [place], [address], 08/16/2025 06:36:35 08/15/20 25 08/15/2025 CBC W/DIF F monocytes 7.8 % 1.0-15 .0 Not Available [facility] (Lab) [address] [facility], [place], [address], 08/16/2025 06:36:35 08/15/20 25 08/15/2025 CBC W/DIF F eosinophils 3.7 % 0.0-8. 0 Not Available [facility] (Lab) [address] [facility], [place], [address], 08/16/2025 06:36:35 08/15/20 25 08/15/2025 CBC W/DIF F basophils 1.1 % 0.0-2. 0 Not Available [facility] (Lab) [address] [facility] [facility], [place], [address], 08/16/2025 06:36:35 08/15/20 25 08/15/2025 CBC W/DIF F immature granulocytes 0.3 % no define d refere nce range Immat ure Granu locyt es (IG) repre sents autom ated enume ratio n of Metam yeloc ytes, Myelo cytes and Promy elocy saumya when IG is < 5%. Blast s are not inclu ded in IG and repor jayesh separ ately if prese nt. Not Available [facility] (Lab) [address] [facility] [facility], [place], [address], 08/16/2025 06:36:35 08/15/20 25 08/15/2025 CBC W/DIF F absolute neutrophils 4.6 10'3/ uL 1.5-8. 0 Not Available [facility] (Lab) [address] [facility] [facility], [place], [address], 08/16/2025 06:36:35 08/15/20 25 08/15/2025 CBC W/DIF F absolute lymphocytes 1.6 10'3/ uL 1.0-4. 0 Not Available [facility] (Lab) [address] [facility] [facility], [place], [address], 08/16/2025 06:36:35 08/15/20 25 08/15/2025 CBC W/DIF F absolute monocytes 0.6 10'3/ uL 0.2-1. 0 Not Available [facility] (Lab) [address] [facility] [facility], [place], [address], 08/16/2025 06:36:35 08/15/20 25 08/15/2025 CBC W/DIF F absolute eosinophils 0.3 10'3/ uL 0.0-0. 6 Not Available [facility] (Lab) [address], [place], [address], 08/16/2025 06:36:35 08/15/20 25 08/15/2025 CBC W/DIF F absolute basophils 0.1 10'3/ uL 0.0-0. 3 Not Available [facility] (Lab) [address], [place], [address], 08/16/2025 06:36:35 08/15/20 25 08/15/2025 CBC W/DIF F absolute immature granulocytes 0.0 10'3/ uL 0.00-0 .10 Refer ence range s for nonbi nary/ inter sex or unspe cifie d gende r patie nts have not been estab lishe d. Pleas e [facility] for range s estab lishe d for cisge nder patie nts and evalu ate in the clini ezra vamshi xt of the indiv idual patie nt: https ://mirna bhand book. nm.or g/gen derx Not Available [facility] (Lab) [address], [place], [address], 08/16/2025 06:36:35 08/15/20 25 08/15/2025 HEMOG LOBIN A1C hemoglobin A1C 5.4 % 4.0-5. 6 The Ameri can Diabe saumya Assoc iatio n recom mends that a prima ry goal of thera py joanneul d be a HBA1C of < 7% and that physi cians shoul d reeva luate the treat ment regim en in patie nts with HBA1C value s consi stent ly > 8%. <5.7% Hannah l 5.7 - 6.4% Incre ased risk for diabe saumya >=6.5 % Diagn ostic of diabe saumya <7.0% Goal of thera py >8.0% Actio n sugge sted Not Available [facility] (Lab) [address], [place], [address], 08/16/2025 06:36:36 08/15/20 25 08/15/2025 LIPID PANEL ,AMA (LDL- CALC) total cholesterol 187 mg/dL 0-199 Not Available [facility] (Lab) [address] [place], [address], 08/16/2025 06:36:36 08/15/2008/15/2025 LIPID PANEL ,AMA (LDL- CALC) triglyceride s 106 mg/dL 0-150 NCEP Refer ence Value s for Trigl yceri nighat: Hannah l: <150 mg/dL Borde rline High: 150 - 199 mg/dL High: 200 - 499 mg/dL Very High: >/= 500 mg/dL Not Available [facility] (Lab) [address] [place], [address], 08/16/2025 06:36:36 08/15/2008/15/2025 LIPID PANEL ,AMA (LDL- CALC) HDL cholesterol 64 mg/dL >40 Not Available [facility] (Lab) [address] [place], [address], 08/16/2025 06:36:36 08/15/2008/15/2025 LIPID PANEL ,AMA (LDL- CALC) LDL cholesterol 103 mg/dL 0-99 high Cutof f value s recom anup d by the Natio nal Sally stero l Educa tion Progr am: EDWARD ABLE: Sally stero l <200 mg/dL LDL <100 mg/dL BORDE RLINE : Sally stero l 200-2 39 mg/dL LDL 101-1 59 mg/dL HIGHE R RISK: Sally stero l >240 mg/dL LDL >160 mg/dL , HDL <40 mg/dL Not Available [facility] (Lab) [address] [place], [address], 08/16/2025 06:36:36 08/15/20 25 08/15/2025 LIPID PANEL ,AMA (LDL- CALC) non-HDL cholesterol 123 mg/dL no refere nce range A reaso nable goal for non-H DL sally stero l is one that is 30 mg/dL highe r than the LDL sally stero l goal. Not Available [facility] (Lab) [address], [place], [address], 08/16/2025 06:36:36 08/15/2008/15/2025 LIPID PANEL ,AMA (LDL- CALC) chol/HDL ratio 2.9 . 0.0-5. 0 On February 23, 2023, [facility] labor atori lam salvador ed the equat ion for calcu latin g estim ated low-d ensit y lipop rotei n-cho leste rol (LDL- C) from the Fried sara equat ion to the Dominique n/Hop lamar equat ion. This new equat ion is only valid for lipid panel s with trigl yceri nighat < 400 mg/dL . Studi es have demon strat ed that this new equat ion will impro ve the accur acy of LDL-C , espec ially in scena cha when LDL-C dariusz ntrat ions are relat ively low (< 100 mg/dL ), trigl yceri nighat are eleva jayesh, or patie nt is non-f astin g. Refer ences : - Dominique bautista, Alf Rivera, Cecilio Samaniego , [facility] leeanne maki, Broderick Cabello, Broderick jeffries, Jackson dawn , and Jared Batres . 2013. Comp ariso n of a Novel Metho d vs the Fried sara Equat ion for Estim ating Low-D ensit y Lipop rotei n Sally stero l Level s from the Stand lela Lipid Profi le. PAUL: The Journ al [...] n Sally stero l Accur acy. Circu latfranklin n. 2017Nov 02;137 (1):1 0-19. Not Available [facility] (Lab) [address] [facility], [place], [address], 08/16/2025 06:36:36 08/15/20 25 08/15/2025 CMP(C OMPRE HENSI VE METAB OLIC PANEL ) sodium 139 mmol/ L 133-14 6 Not Available [facility] (Lab) [address] [facility], [place], [address], 08/16/2025 06:36:36 08/15/2008/15/2025 CMP(C OMPRE HENSI VE METAB OLIC PANEL ) potassium 4.1 mmol/ L 3.5-5. 1 Not Available [facility] (Lab) [address], [place], [address], 08/16/2025 06:36:36 08/15/20 25 08/15/2025 CMP(C OMPRE HENSI VE METAB OLIC PANEL ) chloride 103 mmol/ L 98-107 Not Available [facility] (Lab) [address], [place], [address], 08/16/2025 06:36:36 08/15/20 25 08/15/2025 CMP(C OMPRE HENSI VE METAB OLIC PANEL ) carbon dioxide 27 mmol/ L 21-31 Not Available [facility] (Lab) [address], [place], [address], 08/16/2025 06:36:36 08/15/20 25 08/15/2025 CMP(C OMPRE HENSI VE METAB OLIC PANEL ) anion gap 9 mmol/ L 4-13 Not Available [facility] (Lab) [address] [place], [address], 08/16/2025 06:36:36 08/15/20 25 08/15/2025 CMP(C OMPRE HENSI VE METAB OLIC PANEL ) blood urea nitrogen 10 mg/dL 7-25 Not Available [facility] (Lab) [address], [place], [address], 08/16/2025 06:36:36 08/15/2008/15/2025 CMP(C OMPRE HENSI VE METAB OLIC PANEL ) creatinine 0.76 mg/dL 0.60-1 .30 Not Available [facility] (Lab) [address], [place], [address], 08/16/2025 06:36:36 08/15/2008/15/2025 CMP(C OMPRE HENSI VE METAB OLIC PANEL ) egfrcr (CKD-epi 2020) >90 mL/mi n/1.7 3_m2 >=60 Not Available [facility] (Lab) [address], [place], [address], 08/16/2025 06:36:36 08/15/20 25 08/15/2025 CMP(C OMPRE HENSI VE METAB OLIC PANEL ) calcium 9.3 mg/dL 8.3-10 .5 Not Available [facility] (Lab) [address], [place], [address], 08/16/2025 06:36:36 08/15/20 25 08/15/2025 CMP(C OMPRE HENSI VE METAB OLIC PANEL ) glucose 76 mg/dL 70-100 Not Available [facility] (Lab) [address], [place], [address], 08/16/2025 06:36:36 08/15/2008/15/2025 CMP(C OMPRE HENSI VE METAB OLIC PANEL ) protein, total 7.3 g/dL 6.4-8. 3 Not Available [facility] (Lab) [address], [place], [address], 08/16/2025 06:36:36 08/15/20 25 08/15/2025 CMP(C OMPRE HENSI VE METAB OLIC PANEL ) albumin 4.5 g/dL 3.5-5. 0 Not Available [facility] (Lab) [address], [place], [address], 08/16/2025 06:36:36 08/15/20 25 08/15/2025 CMP(C OMPRE HENSI VE METAB OLIC PANEL ) ALT 11 units /L 9-43 Not Available [facility] (Lab) [address], [place], [address], 08/16/2025 06:36:36 08/15/20 25 08/15/2025 CMP(C OMPRE HENSI VE METAB OLIC PANEL ) alkaline phosphatase 64 units /L 34-104 Not Available [facility] (Lab) [address], [place], [address], 08/16/2025 06:36:36 08/15/20 25 08/15/2025 CMP(C OMPRE HENSI VE METAB OLIC PANEL ) AST 15 units /L 13-39 Not Available [facility] (Lab) [address], [place], [address], 08/16/2025 06:36:36 08/15/2008/15/2025 CMP(C OMPRE HENSI VE METAB OLIC PANEL ) bilirubin, total 0.6 mg/dL 0.2-1. 2 Not Available [facility] (Lab) [address], [place], [address], 08/16/2025 06:36:36 08/15/2008/15/2025 TSH, REFLE X FREE T4 TSH 1.68 uIU/m L 0.30-5 .33 Not Available [facility] (Lab) [address] [place], [address], 08/16/2025 06:36:37 08/15/2008/15/2025 VITAM IN D, 25-OH (TOTA L D2/D3 ) vitamin D, 25-hydroxy, total 35.9 NG/mL 30.0-1 00.0 Sugge stive of Defic iency : <20 ng/mL Sugge stive of Insuf ficie ncy: 20-29 ng/mL Sugge stive of Suffi cienc y: 30-10 0 ng/mL Sugge stive of Toxic ity: >150 ng/mL Not Available [facility] (Lab) [address], [place], [address], 08/16/2025 06:36:37 08/15/20 25 08/15/2025 IMAGE GUIDE D PAP AND HPV REGAR DLESS image guided Pap, HPV regardless of Pap result SEE RESULT S BELOW CASE REPOR T: Cytol ogy Gynec ologi ezra Repor t Case: [id number] Autho joe g Provi nataly: Joshua Edmond MD Colle cted: 08/15 1311 Order ing Locat ion: [place] [facility] Recei samuel: 08/16 0132 First Alexus n: Jude Rico, CT Speci men: Alexus ashley Pap - Image d, Cervi x STATE MENT OF ADEQU ACY: Satis facto ry for evalu ation Trans forma tion zone compo nent absen t ----- ----- ----- ----- ----- ----- ----- ----- ----- ----- ----- ----- ----- ----- ----- ----- ----- ---- FINAL DIAGN OSIS: Negat verna for Intra epith elial Chris bautista or Osvaldo gutierrez (NIL) . Elect fidel acosta by Jude Rico, CT on 08/21 at 0823 CDT ----- ----- ----- ----- ----- ----- ----- [...] as clini chao vargas nted. Not Available [facility] (Lab) [address], [place], [address], 08/21/2025 09:29:25 08/03/20 23 08/03/2023 MAMMO , scree gabi, digit al, bilat eral No observ ation record ed. [facility] [address], [place], [address], 08/13/2023 11:36:11 09/18/20 24 09/14/2024 MAMMO , scree gabi, digit al, bilat eral No observ ation record ed. [facility] [address], [place], [address], 09/30/2024 22:12:45 09/06/20 25 09/05/2025 MAMMO , scree gabi, digit al, bilat eral No observ ation record ed. [email or web address] [facility] [address], [place], [address], 09/06/2025 15:19:38 Result Notes None recorded. Problems Name Problem SNOMED Code Status Onset Date Resolution Date Notes Provider Name and Address Organization Details Recorded Time Pregnanc y test positive [id number] Completed 201007/21/2021 Positive Test;Prac meghana ID: 0001 Reyna Pulido [facility] 09:57:14 Uterine size for dates discrepa ncy [id number] Completed 201007/21/2021 UTERINE SIZE NIGHAT-ANTEP AR;Practi ce ID: 0001 Reyna Pulido [facility] 09:57:31 Acute sinusiti s [id number] Completed 201007/21/2021 Acute sinusitis , unspecifi ed;Practi ce ID: 0001 Reyna Pulido [facility] 09:55:57 anatomy study Completed 201007/21/2021 [facility];Pr actice ID: 0001 Reyna koenig [facility] 09:57:05 Routine antenata l care Completed 201007/21/2021 Supervisi on of other normal ;Practice ID: 0001 Reyna koenig [facility] 09:57:17 Single live from [place] n pregnanc y [id number] Completed 201007/21/2021 Mother with single liveborn; Practice ID: 0001 Reyna Pulido [facility] 09:57:24 Delivery normal [id number] Completed 201007/21/2021 Normal delivery; Practice ID: 0001 Reyna Pulido [facility] 09:56:08 Postpart um care Completed 201107/21/2021 Routine postpartu m follow-up ;Recorded Elsewhere : No Locati on: [facility] So urce: EHR Chron ic: N Practic e ID: 0001 Bill able Time: 09:00:00 AM Reyna [facility] 09:57:10 Insertio n of intraute rine contrace ptive device Completed 201107/21/2021 INSERTION OF IUD;Recor ded Elsewhere : No Locati on: [facility] So urce: EHR Chron ic: N Practic e ID: 0001 Bill able Time: 10:00:00 AM Reyna [facility] 09:57:07 Family planning surveill ance Completed 201107/21/2021 Contracep tive surveilla nce, unspecifi ed;Record ed Elsewhere : No Locati on: [facility] So urce: EHR Chron ic: N Practic e ID: 0001 Bill able Time: 04:30:00 PM Reyna [facility] 09:56:13 Screenin g for malignan t neoplasm of cervix Completed 201107/21/2021 Screening for malignant neoplasms of the cervix;Re corded Elsewhere : No Locati on: [facility] So urce: EHR Chron ic: N Practic e ID: 0001 Bill able Time: 05:45:00 PM Reyna [facility] 1 09:57:22 Dyspareu bertin [id number] Completed 201107/21/2021 Dyspareun ia;Record ed Elsewhere : No Locati on: [facility] So urce: EHR Chron ic: N Practic e ID: 0001 Bill able Time: 05:30:00 PM Reyna [facility] 1 09:56:11 Speciali zed medical examinat ion Completed 201407/21/2021 Gynecolog ical Examinati on;Record ed Elsewhere : No Locati on: [facility] So urce: EHR Chron ic: N Practic e ID: 0001 Bill able Time: 08:30:00 AM Reynalen Pulido [facility] 09:57:29 Adult health examinat ion Completed 201407/21/2021 ROUTINE MEDICAL EXAM;Wu rded Elsewhere : No Locati on: [facility] So urce: EHR Chron ic: N Practic e ID: 0001 Bill able Time: 08:30:00 AM Reyna [facility] 09:56:00 Removal of intraute rine device Completed 201607/21/2021 Encounter for removal of intrauter ine contracep tive device;Re corded Elsewhere : No Locati on: [facility] So urce: EHR Chron ic: N Practic e ID: 0001 Bill able Time: 10:45:00 AM Reyna Pulido [facility] 1 09:57:16 Pregnanc y test negative [id number] Completed 201607/21/2021 Encounter for test, result negative; Recorded Elsewhere : No Locati on: [facility] So urce: EHR Chron ic: N Practic e ID: 0001 Bill able Time: 08:45:00 AM Reyna [facility] 1 09:57:11 Clinical finding Completed 201607/21/2021 Presence of (intraute rine) contracep tive device;Re corded Elsewhere : No Locati on: [facility] So urce: EHR Chron ic: N Practic e ID: 0001 Bill able Time: 08:45:00 AM Reyna Pulido [facility] 09:56:03 Contrace ptive sheath status [id number] Completed 201607/21/2021 IUD follow up;Record ed Elsewhere : No Locati on: [facility] So urce: EHR Chron ic: N Practic e ID: 0001 Bill able Time: 08:30:00 AM Reyna [facility] 09:56:[address] Concept Completed 201607/21/2021 Encntr for general adult medical exam w/o abnormal findings; Recorded Elsewhere : No Locati on: [facility] So urce: EHR Chron ic: N Practic e ID: 0001 Bill able Time: 08:15:00 AM Reyna [facility] 09:57:[address] Concept Completed 201807/21/2021 Well woman check w/o abnormal finding;R ecorded Elsewhere : No Locati on: [facility] So urce: EHR Chron ic: N Practic e ID: 0001 Bill able Time: 02:30:00 PM Reyna [facility] 09:57:28 Evaluati on finding Completed 201807/21/2021 Oth abn and inconclus verna findings on dx imaging of breast;Re corded Elsewhere : No Locati on: [facility] So urce: EHR Chron ic: N Practic e ID: 0001 Bill able Time: 02:25:44 PM Reynalen Pulido [facility] 09:56:01 Problem Notes None recorded. Procedures Surgical History Date Name Laterality Status Provider Name and Address Organization Details Recorded Time 04/10/20 Date of Last Colonoscopy completed [facility] 08/15/2025 09:28:04 11/03/19 25 Date of Last Pap Smear completed [facility] 08/15/2025 09:29:45 09/14/20 24 Date of Last Mammogram completed [facility] 08/15/2025 09:28:04 11/01/19 10 section completed [facility] 08/17/2020 14:57:06 11/01/19 08 Colposcopy completed [facility] 08/17/2020 14:57:21 11/01/18 96 Removal of ovarian cyst(s) completed [facility] 08/17/2020 14:56:23 11/01/18 93 operation on nose completed [facility] 08/17/2020 14:56:51 Imaging Results None recorded. [...] Not available Not available Not available 07/04/2020 [id number] [facility]ED [facility] 09:[facility]23 Medications Name Sig Start Date Stop Date Status Note LastModified by Organization Details LastModified Time Vitamin B-6 25 mg tablet 04/28 completed Prescrib ed Elsew e: Yes Loca tion: Basilio [facility] odify By: david dasilvaunteri DateTime : 04/22/20 17 08:15:00 AM Not Available Not Available Not Available azithromy curt 250 mg tablet TAKE 2 TABLETS BY MOUTH FOR 1 DAY THEN TAKE 1 TABLET BY MOUTH DAILY FOR 4 DAYS 11/03 completed Not Available Not Available Not Available benzonata te 100 mg capsule TAKE 2 CAPSULES BY MOUTH THREE TIMES DAILY NEEDED FOR COUGH 08/15 completed Not Available Not Available Not Available cephalexi n 500 mg capsule 07/04 completed Not Available Not Available Not Available magnesium 250 mg tablet 04/28 completed Prescrib ed Elsewher e: Yes Loca tion: Basilio [facility] odify By: david berg DateTime : 04/22/20 [...] No Locat ion: Basilio olivarez [facility] odify By: bashir berg DateTime : 04/23/20 17 10:01:42 AM Not Available Not Available Not Available multivita min capsule take 1 capsule by oral route every day 04/22 completed Prescrib ed Elsewher e: Yes [facility] By: baldomero berg DateTime : 04/10/20 14 08:30:00 AM Not Available Not Available Not Available Vitamin B-12 1,000 mcg tablet 04/28 completed Prescrib ed Elsewher e: Yes [facility] By: david berg DateTime : 04/22/20 17 08:15:00 AM Not Available Not Available Not Available iron ER 325 mg (65 mg iron) capsule,e xtended release take 1 Tablet by Oral route 3 times every day 05/24 completed Prescrib ed Elsewher e: Yes Loca tion: [facility] odify By: monica ricci DateTime : 11/25/19 12 09:00:00 AM Not Available Not Available Not Available nitrofura ntoin monohydra te/macroc rystals 100 mg capsule 07/04 completed Not Available Not Available Not Available Vitamin D 07/21 completed Not Available Not Available Not Available ParaGard T 380A active Not Available Not Available Not Available [place] 3-6-9 Triple [place] 1,200 mg (400 mg-400mg- 400mg) capsule 05/24 completed Prescrib ed Elsewher e: No Locat ion: Basilio olivarez [facility] odify By: monica ricci DateTime : 01/20/20 12 04:30:00 PM Not Available Not Available Not Available 10 mg-400 mcg capsule 04/05 completed Prescrib ed Elsewher e: Yes Loca tion: Basilio [facility] odify By: yesenia ricci DateTime : 12/24/19 12 10:00:00 AM Not Available Not Available Not Available B12 active Not Available Not Availa ble Not Available Probiotic 10 billion cell capsule 07/24 completed Prescrib ed Elsewher e: Yes [facility] By: alberto fasut DateTime : 04/18/20 15 08:30:00 AM Not Available Not Available Not Available Vitamin D3 50 mcg (2,000 unit) capsule 2018 active Prescrib ed Elsewher e: Yes [facility]oca [facility] By: bashir berg DateTime : 05/15/20 19 02:30:00 PM Not Available Not Available Not Available ADVANCED Calcium 200 mg-200 unit-16 mcg tablet 08/15 completed Not Available Not Available Not Available theanine 08/15 completed Not Available Not Available Not Available Adult Probiotic active Not Available Not Available No t Available ascorbic acid (vitamin C) 500 mg capsule 07/24 completed Not Available Not Available Not Available Little Remedies Cough-Imm une 0.7 gram-3 gram/7.5 mL oral liquid 05/15 completed Prescrib ed Elsewher e: Yes Loca tion: [facility] odify By: bashir dasilvaunteri DateTime : 04/28/20 18 08:15:00 AM Not Available Not Available Not Available Complete [place] active Not Available Not Available Not Available Probiotic (B. coagulans ) 07/21 completed Not Available Not Available Not Available elderberr y fruit 460 mg-elderb erry flower 115 mg capsule 07/22 completed Prescrib ed Americo e: Yes Loca tion: [facility] M odbernadette By: bashir berg DateTime : 05/15/20 02:30:00 PM Not Available Not Available Not Available Flucelvax Quad (PF) 60 mcg (15 mcg x 4)/0.5 mL IM syringe 07/21 completed Not Available Not Available Not Available ashwagand hernandez root extract 08/15 completed Not Available Not Available Not Available Magnesium Complex 08/15 completed Not Available Not Available Not Available D3-5000 active Not Available Not Avail able Not Available Vitals Date Recorded Body height Body mass index (BMI) Body weight Systolic And Diastolic Provider Name and Address Organization Details Last Updated DateTime 11/03/2024 160.02 cm 32.1 kg/m2 56818.22 g 116/75 mm[Hg] Hedy [facility] 11/03/2024 14:06:25 Date Recorded Body height Body weight Systolic And Diastolic Provider Name and Address Organization Details Last Updated DateTime 07/24/2022 160.02 cm 31973.7 g 120/80 mm[Hg] Reyna Pulido [facility] 07/24/2022 09:44:00 Date Recorded Body height Body mass index (BMI) Body weight Systolic And Diastolic Provider Name and Address Organization Details Last Updated DateTime 07/27/2023 160.02 cm 30.5 kg/m2 90294.89 g 113/73 mm[Hg] Odette Randolph [facility] 07/27/2023 09:36:11 Date Recorded Body height Body mass index (BMI) Body weight Systolic And Diastolic Provider Name and Address Organization Details Last Updated DateTime 08/01/2024 160.02 cm 31 kg/m2 02206.66 g 111/73 mm[Hg] Hedysher Gama [facility] 08/01/2024 09:34:26 Date Recorded Body height Body mass index (BMI) Body weight Systolic And Diastolic Provider Name and Address Organization Details Last Updated DateTime 08/15/2025 160.02 cm 30.8 kg/m2 50109.07 g 104/68 mm[Hg] Madyson Freedom [facility] 08/15/2025 09:27:42 Social History Question Answer Notes LastModified by Organizat ion Details LastModified Time Tobacco Smoking Status Former Smoker NIKKIE HOLLAND [facility], [facility] 07/27/2023 09:15:09 Do You Have An Advance Directive? No Information n ot available 07/22/2021 How Many Years Have You Consumed Alcohol? 25 Information not available 08/15/2025 Are You Blind Or Do You Have [...] Or The Highest Degree You Have Received? [id number] Information not available 07/22/2021 Are There Any Guns Present In Your Home? No Information not available 07/22/2021 What Was The Date Of Your Most Recent Tobacco Screening? 07/27/2023 [email or web address] Information not available 07/27/2023 Do You Use Protection During Sex? No Information not available 07/22/2021 Do You Use Your Seat Belt Or Car Seat Routinely? Yes Information not available 07/22/2021 Do You Have Smoke And Carbon Monoxide Detectors In Your Home? Yes Information not available 07/22/2021 How Much Tobacco Do You Smoke? No [email or web address] Information not available 08/17/2020 Do You Use Sunscreen Routinely? Yes Information not available 07/22/2021 Have You Used IV Drugs? No Information not available 07/22/2021 Do You Have Difficulty Walking Or Climbing Stairs? No Information not available 08/01/2024 Sex: Unknown Functional [...] not available 07/27/2023 Are you able to walk independently without assistance or assistive devices? [email or web address] Information not available 07/21/2021 Are you able to care for yourself independently? 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 No [email or web address] Information not available 08/01/2024 Do you or have you ever used e-cigarettes or vape? Never used electronic cigarettes Information not available 07/27/2023 What is your exercise level? Moderate Information not available 08/01/2024 Mental Status Question Answer Note LastModified by Organization D etails LastModified Time Do you feel stressed (tense, restless, nervous, or anxious, or unable to sleep at night)? [id number] Information not available 07/22/2021 Family History Relationship Description Onset Age of this Age Resolved Age Notes LastModified by Organization Details LastModified Time Maternal Grandfather Diabetes mellitus [email or web address] Not available 2019 09:24:01 Mother Hypertensive disorder [email or web address] Not available 2019 09:24:11 Father Pulmonary embolism Not available 2024 09:27:51 Father Blood coagulation disorder Not available 10/15/ 2025 09:27:51 Medical History Condition Response Allergies (Food, seasonal, [...] N Thrombophilias N Gynecological History Statement/Question Response Date of Last Mammogram 09/14/2024 Flow Moderate Date of LMP 07/31/2025 N Was last menstrual period normal Y STIs/STDs Y Date of Last Colonoscopy 04/10/2025 Desired Control Method IUD Abnormal Pap Y On BCP's at Conception? N HPV Vaccine Y Duration of Flow (days) 4 Current Control Method IUD Age at First Child 29 Are cycles usually normal Y Frequency of Cycle (Q days) 26 Sexually Active? Y Menses Monthly Y Age of first menstrual cycle 10 Date of Last Pap Smear 11/03/2024 Sexual Problems? N LMP Approximate N Obstetrics History GPAL:G 2 P 2 0 0 2 Type Value Full Term 2 Living 2 Total 2 Past Encounters Encounter ID Performer Location Encounter Start Date Encounter Closed Date Diagnosis/Indication Diagnosis SNOMED-CT Code Diagnosis ICD10 Code Diagnosis IMO Codes Diagnosis Note [id number] Lina Caruso , [facility] [address] [address] 07/04/2020 09:21:01 07/04/2020 10:09:57 Gynecologic examination 46716369 Z01.419 Suggested Calcium with Vitamin D 1200-1500m g daily. Patient advised to get an annual flu shot in the fall and she could obtain at [facility] or [facility] clinic. Also to obtain TDap vaccinatio n [...] to this email. Adult heal th examination 544491437 Z00.00 [id number] Lina Caruso [facility] [address],[place] [address] 08/17/2020 11:53:16 08/19/2020 15:04:13 Postcoital bleeding 14009544 N93.0 Today's exam was wnl. We agreed to keep diary of PCB & f/u for this at her E. IUD seems to be in place. Option to do US & blood work moving forward: TSH, Prolactin, CBC, CMP or STD/vag cx's if needed. Denied need for std screening today. Time spent in visit is a total of 15 mins with at least 50% of visit consisting of counseling and review of plan of care. IUD check 493319112 Z30. 431 NOTE: Patient had left but realized that [...] string check to ensure paraguard vs mirena. [id number] Lina Caruso [facility] [address] [address] 07/22/2021 09:23:38 07/22/2021 11:00:36 Gynecologic examination 59684793 Z01.419 Suggested Calcium with Vitamin D 1200-1500m g daily. Patient advised to get an annual flu shot in the fall and she could obtain at [facility] or [facility] take care clinic. Also to obtain TDap [...] vs 10yrs as a precaution . Adult heal th examination 987208425 Z00.00 [id number] Lina Caruso , [facility] [address] [address] 07/24/2022 09:13:41 07/24/2022 09:55:16 Gynecologic examination 45819979 Z01.419 Z11.51 Suggested Calcium with Vitamin D 1200-1500m g daily. Patient advised to get an annual flu shot in the fall and she could obtain at [facility] or [facility] care clinic. Also to obtain [...] na Routine Labs orderedMam mo ordered Adult heal th examination 167714862 Z00.00 Vitamin D deficiency 347 15760 E55.9 [id number] [facility] [address] [address] 07/27/2023 09:14:45 07/27/2023 10:02:54 Gynecologic examination 28256613 Z01.419 Z11.51 Suggested Calcium with Vitamin D 1200-1500m g daily. Patient advised to get an annual flu shot in the fall and she could obtain at [facility] or [facility]. Also to obtain TDap vaccinatio n if [...] Labs orderedMam mo ordered Screening mammography 24 273618 Z12.31 Adult [facility] th examination 074124733 Z00.00 Vitamin D deficiency 347 01846 E55.9 [id number] RADHA COURTNEY MD [facility] [address] [address] 08/01/2024 09:04:33 08/01/2024 10:08:47 Screening mammography 25319966 Z12.31 Adult [facility] th examination 013099959 Z00.00 Vitamin D deficiency 347 73239 E55.9 Gynecologi c examination 41099527 Z01.419 [facility] [facility] Cervical cancer screening: Pap smear obtained today, will follow up on the results with the patient as they become available- Breast cancer screening: mammogram ordered- Colon cancer screening: discussed- HPV immunizati on: does not qualify- STD testing: declined- hereditary cancer screening: does not qualify for testing [id number] RADHA COURTNEY MD [facility] [address] [address] 11/03/2024 13:49:29 11/03/2024 14:35:35 Specimen with abnormal presence of endometrial cells [id number] R87.619 - endometria l cells on pap smear- repeat collected today to confirm presence prior to EMB if needed- LMP 10/11/24, has not had any spotting [id number] RADHA COURTNEY MD [facility] [address],[place] [address] 08/15/2025 09:13:33 08/15/2025 10:14:06 Gynecologic examination [id number] Z01.419 [id number] [facility]- Cervical cancer screening: Pap smear obtained today, will follow up on the results with the patient as they become available- Breast cancer screening: mammogram ordered- Colon cancer screening: completed, repeat in 10 years- HPV immunizati on: does not qualify- STD testing: declined- hereditary cancer screening: does not qualify for testing Factor V L eiden mutation [id number] D68.51 [id number] Health Concerns Section Related Observation LastModified by Organization Detai ls LastModified Time None Recorded Concern Status LastModified by Organization Details LastModified Time None Recorded Advance Directives Directive N: Payers Insurance Date Sequence Insurance Name Policy Number Policy Heller Covered Member ID Heller Member ID Guarantor Name 08/14/2025 1 [employer] [id number] Genet Archer [id number] Gen[employer] 08/14/2025 2 [employer] [id number] Genet Archer [id number] Genet Archer Notes Date Note Type Note Provider Name and Address Organization Details Recorded Time 07/24/20 22 text/ht ml Annual GYNReported by PatientHistoryFor history, patient reportsno gynecologic complaints.Genitourinary symptomsFor menstrual cycle, patient reportsnormal menses. For urinary symptoms, patient reportsno hematuriaandno incontinence. For vulva, patient reportsno genital lesion. For vagina, patient reportsnormal vaginal discharge.Breast symptomsFor breast, patient reportsno breast pain,no breast lump, andno nipple discharge.ContraceptionFor current contraception, patient reportssatisfied with current contraceptionandintrauterine device (iud).Endocrine symptomsFor sexual complaints, patient reportsno sexual complaints,no pain during intercourse, andnormal libido. For menopausal symptoms, patient reportsno menopausal symptomsandnormal vaginal lubrication.Psychological symptomsFor psychological symptoms, patient reportsno depression,no anxiety, andno pmdd.Preventative measuresFor preventive measures, patient reportsencourage self breast examination,encourage regular exercise,encourage no tobacco use,encourage regular mammograms starting age 40,followed with yearly pap smears, andneeds to schedule mammogram. Lina Caruso [facility]- [address], [place], [address], [facility] 07/24/2022 09:53:36 07/27/20 23 text/ht ml Annual GYNReported by PatientHistoryFor history, patient reportsno gynecologic complaints.Genitourinary symptomsFor menstrual cycle, patient reportsnormal menses. For urinary symptoms, patient reportsno hematuriaandno incontinence. For vulva, patient reportsno genital lesion. For vagina, patient reportsnormal vaginal discharge.Breast symptomsFor breast, patient reportsno breast pain,no breast lump, andno nipple discharge.ContraceptionFor current contraception, patient reportssatisfied with current contraceptionandintrauterine device (iud).Endocrine symptomsFor sexual complaints, patient reportsno sexual complaints,no pain during intercourse, andnormal libido. For menopausal symptoms, patient reportsno menopausal symptomsandnormal vaginal lubrication.Psychological symptomsFor psychological symptoms, patient reportsno depression,no anxiety, andno pmdd.Preventative measuresFor preventive measures, patient reportsencourage self breast examination,encourage regular exercise,encourage no tobacco use,encourage regular mammograms starting age 40,followed with yearly pap smears, andneeds to schedule mammogram. Lina Caruso [facility] [address], [place], [address], [facility] 07/27/2023 09:53:04 08/01/20 24 text/ht ml Presents today for her annual well-woman exam. Denies abnormal vaginal [...] spotting. RADHA COURTNEY MD [address], [place], [address], [facility] 08/01/2024 10:05:45 11/03/19 25 text/ht ml Patient presents for repeat pap smear indicated for previous pap smear with endometrial cells. LMP 10/11/24 RADHA COURTNEY MD [address], [place], [address], [facility] 11/03/2024 14:32:37 08/15/20 25 text/ht ml Annual GYNReported by Patient Presents today for her annual well-woman exam. Denies abnormal vaginal discharge. She is sexually active and denies dyspareunia. She is using cycle tracking for contraception, and she states that she is satisfied with this method. She has not noticed any changes or masses in her breasts. Mammogram scheduled 09/2025. Regular periods. RADHA COURTNEY MD [address], [place], [address], [facility] 08/15/2025 10:02:50 OBGyn Episode Ob Episode Information Episode Created Date Number of Fetuses Patient Bloodtype Patient rh Status Prepregnancy Weight lbs Domestic Partner Domestic Partner Phone Father Name Legal Aide Status 07/04/20 20 1 CLOSED Fetus Data [...] Domestic Partner Domestic Partner Phone Father Name Legal Aide Status 07/04/20 20 1 CLOSED Fetus Data [...]
== END 2025-09-05 14:59 | disposition home or self-care (01) ==
LOC: ANHFOHIMG 15:00
PROVIDERS: PCP Family Medicine; Visit Provider Obstetrics & Gynecology
DX: Z12.31 Encounter for screening mammogram for malignant neoplasm of breast (principal)
CPT/HCPCS: 77063; 77067